=== PATIENT | male | born 1930 | race Caucasian/White ===

== ENCOUNTER 2017-05-31 07:59 | Emergency (ER) | payer MEDICARE, OTHER ==
[2017-05-31] MEDS ORDERED: SODIUM CHLORIDE 0.9% 500 ML IV ONE (08:50)
[2017-05-31] MEDS ORDERED: DEXAMETHASONE 10 MG/ML VIAL IVP STA (08:50)
[2017-05-31] MEDS ORDERED: ONDANSETRON 4 MG/2 ML VIAL IVP STA (08:50)
[2017-05-31] MEDS ORDERED: HYDROmorphone 1 MG/ML CARPUJECT IVP STA (08:50)
--- NOTE | 2017-05-31 08:53 | ED Physician Documentation ---
History of Present Illness - Stated complaint Stated Complaint: HAND PX - Chief complaint Chief Complaint: General - History obtained from History obtained from: Patient, Family - History of Present Illness Timing: How many weeks ago (2) - Additonal information Additional information: 86-year-old male with a history of cervical radiculopathy has developed some pain and numbness in his right hand. He states that he is having some difficult time closing his hand all the way and is having significant pain associated with this. He has a complicated past medical history with a bovine aortic valve 8 stents, diabetes, cervical fusion and a supra pubic cath. He has recently moved to the area to be with his son as his health is failing even more than previously. He is on some torsamide and he has been taking his medications and he has been taking care of his diabetes especially since he has come to live with his son. Review of Systems Constitutional: denies: Fever Eyes: denies: Decreased vision Ears: denies: Ear pain Nose: denies: Congestion Throat: denies: Sore throat Cardiac: denies: Chest pain / pressure, Palpitations Respiratory: denies: Dyspnea, Cough GI: denies: Abdominal Pain, Nausea, Vomiting : denies: Dysuria, Frequency Skin: denies: Rash Musculoskeletal: reports: Neck pain, Extremity pain Neurologic: reports: Focal weakness, Numbness. denies: Generalized weakness PD PAST MEDICAL HISTORY - Past Medical History Past Medical History: Yes Cardiovascular: Deep vein thrombosis, Valve disorder Respiratory: Emphysema Endocrine/Autoimmune: Type 2 diabetes : Benign prostate hypertrophy, Retention, Indwelling catheter Musculoskeletal: Osteoarthritis Other Past Medical History: charcot foot - Past Surgical History Past Surgical History: Yes Ortho: Spine surgery Cardiovascular: Coronary stent, Valve replacement, Pacemaker, AICD - Present Medications Home Medications: Ambulatory Orders Medication Instructions Recorded Confirmed Acetaminophen [Pain Reliever] 500 mg PO Q6H PRN 05/31/17 05/31/17 Clopidogrel [Plavix] 75 mg PO DAILY 05/31/17 05/31/17 Fludrocortisone [Florinef] 0.2 mg DAILY 05/31/17 05/31/17 HYDROcod/ACETAM 5/325 [[place] 5/325] 1 - 2 ea PO Q6H PRN #15 tablet 05/31/17 Insulin NPH Human [NovoLIN N] 60 units BID 05/31/17 05/31/17 Levofloxacin [Levaquin] 500 mg PO DAILY #10 tablet 05/31/17 Levothyroxine Sodium [Synthroid] 75 mcg PO DAILY 05/31/17 05/31/17 Metoprolol Succinate [Toprol Xl] 25 mg PO DAILY 05/31/17 05/31/17 Polyethylene Glycol 3350 [Glycolax] 17 gm DAILY 05/31/17 05/31/17 Propranolol [Inderal] 10 mg PO BID 05/31/17 05/31/17 Tamsulosin [Flomax] 0.4 mg DAILY 05/31/17 05/31/17 - Allergies Allergies/Adverse Reactions: Allergies Allergy/AdvReac Type Severity Reaction Status Date / Time pregabalin [From Lyrica] Allergy Unknown Verified 05/31/17 11:02 Sulfa (Sulfonamide Allergy Unknown Verified 05/31/17 11:02 Antibiotics) tetracycline Allergy Unknown Verified 05/31/17 11:02 - Social History Does the pt smoke?: No Smoking Status: Never smoker Does the pt drink ETOH?: No Does the pt have substance abuse?: No PD ED PE NORMAL - Vitals Vital signs reviewed: Yes (hypertensive) - General General: Alert and oriented X 3, No acute distress, Well developed/nourished - HEENT HEENT: Atraumatic, PERRL, EOMI - Neck Neck: Supple, no meningeal sign - Cardiac Cardiac: RRR, No murmur - Respiratory Respiratory: No respiratory distress, Clear bilaterally - Abdomen Abdomen: Soft, Non tender - Back Back: No CVA TTP, No spinal TTP - Derm Derm: Normal color, Warm and dry, No rash - Extremities Extremities: Other (There is severe arthritic deformity of both hands. The left is contracted the right is less so but still contracted and joints are deformed from arthritis. ) - Neuro Neuro: Alert and oriented X 3, Normal speech Eye Opening: Spontaneous Motor: Obeys Commands Verbal: Oriented GCS Score: 15 - Psych Psych: Normal mood, Normal affect Results - Vitals Vitals: Vital Signs - 24 hr 05/31/17 05/31/17 05/31/17 08:10 09:50 11:03 Temperature 36.7 C Heart Rate 72 70 70 Respiratory 18 16 18 Rate Blood Pressure 153/85 H 148/80 H 115/64 O2 Saturation 97 97 05/31/17 05/31/17 11:30 12:30 Temperature Heart Rate 70 70 Respiratory 18 18 Rate Blood Pressure 124/60 160/82 H O2 Saturation 96 Oxygen O2 Source Room air - Labs Labs: Laboratory Tests 05/31/17 05/31/17 05/31/17 09:23 09:23 09:23 WBC 9.4 RBC 4.37 L Hgb 11.1 L Hct 34.4 L MCV 78.7 L MCH 25.5 L MCHC 32.4 RDW 17.8 H Plt Count 215 MPV 8.5 Neut # 6.2 Lymph # 2.1 [place] # 0.9 Eos # 0.2 Baso # 0.0 Absolute Nucleated RBC 0.00 Nucleated RBC % 0.0 Sodium 135 Potassium 4.0 Chloride 105 Carbon Dioxide 24 Anion Gap 6.0 BUN 39 H Creatinine 1.4 H Estimated GFR (MDRD) 48 L Glucose 120 H Lactic Acid Calcium 8.9 Total Bilirubin 0.5 AST 15 ALT 10 Alkaline Phosphatase 61 Troponin I < 0.04 Total Protein 6.2 L Albumin 3.0 L Globulin 3.2 Albumin/Globulin Ratio 0.9 L Lipase < 10 L Urine Color Urine Clarity Urine pH Ur Specific [place] Urine Protein Urine Glucose (UA) Urine Ketones Urine Occult Blood Urine Nitrite Urine Bilirubin Urine Urobilinogen Ur Leukocyte Esterase Urine RBC Urine WBC Urine WBC Clumps Ur Squamous Epith Cells Urine Bacteria Ur Microscopic Review Urine Culture Comments 05/31/17 05/31/17 09:23 09:50 WBC RBC Hgb Hct MCV MCH MCHC RDW Plt Count MPV Neut # Lymph # [place] # Eos # Baso # Absolute Nucleated RBC Nucleated RBC % Sodium Potassium Chloride Carbon Dioxide Anion Gap BUN Creatinine Estimated GFR (MDRD) Glucose Lactic Acid < 0.3 L Calcium Total Bilirubin AST ALT Alkaline Phosphatase Troponin I Total Protein Albumin Globulin Albumin/Globulin Ratio Lipase Urine Color YELLOW Urine Clarity SL. CLOUDY Urine pH 6.0 Ur Specific [place] 1.020 Urine Protein TRACE Urine Glucose (UA) NEGATIVE Urine Ketones NEGATIVE Urine Occult Blood NEGATIVE Urine Nitrite POSITIVE H Urine Bilirubin NEGATIVE Urine Urobilinogen 0.2 (NORMAL) Ur Leukocyte Esterase SMALL H Urine RBC 0-5 Urine WBC >25 H Urine WBC Clumps PRESENT Ur Squamous Epith Cells NONE SEEN Urine Bacteria Many H Ur Microscopic Review INDICATED Urine Culture Comments INDICATED Procedures - IVC sono (time) 0850 Bedside IVC sono: IVC measures (cm) (1.44), IVC collapsed c insp (cm) (complete) , Dehydration (mild) PD MEDICAL DECISION MAKING - ED course Complexity details: reviewed old records, reviewed results, re-evaluated patient , considered differential, d/w patient, d/w family ED course: 86-year-old male with a comp located past medical history who has not been seen here previously has developed some cramping to his right hand. Is found to be mildly dehydrated on interrogation the inferior vena cava. He does have a history of cervical radiculopathy and symptoms are similar to what he has had with his radiculopathy previously. Here in the emergency department he is administered dexamethasone and a 500 mL bolus. He does have CHF in the bolus is administered over a 2 hour period. He has a suprapubic cath and the urine is checked as well. He is administered pain medication as well. I have concern for cervical radiculopathy, dehydration and urinary tract infection as underlying causes for worse than usual pain/disability. The patient responds well to treatment and I have recommended he not take his torsemide today. Departure - Departure Disposition: 01 Home, Self Care Clinical Impression: Dehydration, Cervical radiculopathy Urinary tract infection Qualifiers: Urinary tract infection type: catheter-associated UTI Indwelling urinary catheter type: cystostomy catheter Encounter type: initial encounter Qualified Code(s): T83.510A - Infection and inflammatory reaction due to cystostomy catheter, initial encounter Condition: Stable Instructions: ED Dehydration, ED Cervical Radiculopathy, ED UTI Cystitis Male Follow-Up: Reinaldo Paulino MD [Primary Care Provider] - Mike Alan MD [Provider Admit Priv/Credential] - Prescriptions: HYDROcod/ACETAM 5/325 [[place] 5/325] 1 - 2 ea PO Q6H PRN #15 tablet PRN Reason: Pain Levofloxacin [Levaquin] 500 mg PO DAILY #10 tablet Discharge Date/Time: 05/31/17 12:55
[2017-05-31 09:42] LABS: BASOPHILS % (AUTO) 0.3 %; EOSINOPHILS # (AUTO) 0.2 10^3/uL (0.0-0.7); EOSINOPHILS % (AUTO) 2.6 %; HGB - HEMOGLOBIN 11.1 g/dL (14.0-18.0); LYMPHOCYTES # (AUTO) 2.1 10^3/uL (1.5-3.5); LYMPHOCYTES % (AUTO) 22.5 %; MEAN CORPUSCULAR HEMOGLOBIN 25.5 pg (27.0-31.0); MEAN CORPUSCULAR HGB CONC 32.4 g/dL (32.0-36.0); MEAN CORPUSCULAR VOLUME 78.7 fL (80.0-94.0); MEAN PLATELET VOLUME 8.5 fL (7.4-11.4); MONOCYTES # (AUTO) 0.9 10^3/uL (0.0-1.0); MONOCYTES % (AUTO) 9.2 %; NEUTROPHILS # (AUTO) 6.2 10^3/uL (1.5-6.6); NEUTROPHILS % (AUTO) 65.4 %; PLT - PLATELET COUNT 215 10^3/uL (130-450); RED BLOOD COUNT 4.37 10^6/uL (4.70-6.10); RED CELL DISTRIBUTION WIDTH 17.8 % (12.0-15.0); WHITE BLOOD COUNT 9.4 x10^3/uL (4.8-10.8)
[2017-05-31 09:58] LABS: BILIRUBIN,URINE NEGATIVE (NEGATIVE); GLUCOSE, URINE (UA) NEGATIVE (NEGATIVE); KETONES,URINE (UA) NEGATIVE (NEGATIVE); LEUKOCYTE ESTERASE, URINE SMALL (NEGATIVE); NITRITE,URINE POSITIVE (NEGATIVE); OCCULT BLOOD,URINE NEGATIVE (NEGATIVE); PROTEIN,URINE TRACE mg/dL (NEGATIVE); UROBILINOGEN,URINE 0.2 (NORMAL) E.U./dL (NORMAL)
[2017-05-31 10:01] LABS: ALBUMIN/GLOBULIN RATIO 0.9 (1.0-2.2); ALKALINE PHOSPHATASE 61 IU/L (42-121); ALT ALANINE AMINOTRANSFERASE 10 IU/L (10-60); AST ASPARTATE AMINOTRANSFERASE 15 IU/L (10-42); BILIRUBIN,TOTAL 0.5 mg/dL (0.2-1.0); BUN - BLOOD UREA NITROGEN 39 mg/dL (6-20); CALCIUM 8.9 mg/dL (8.5-10.3); CARBON DIOXIDE - CO2 24 mmol/L (21-32); CHLORIDE 105 mmol/L (101-111); CREATININE 1.4 mg/dL (0.6-1.2); GFR - MDRD 48 (>89); GLUCOSE 120 mg/dL (70-100); LIPASE < 10 U/L (22-51); SODIUM 135 mmol/L (135-145); TOTAL PROTEIN 6.2 g/dL (6.7-8.2)
[2017-05-31 10:14] LABS: CLARITY,URINE SL. CLOUDY (CLEAR)
[2017-05-31 10:15] LABS: BACTERIA,URINE Many /HPF (None Seen); RBC,URINE 0-5 /HPF (0-5); SQUAMOUS EPITHELIAL CELL,UR NONE SEEN (<= Few); WBC CLUMPS,URINE PRESENT
[2017-05-31] MEDS ORDERED: cefTRIAXone 1 GM in SODIUM CHLORIDE 0.9% MINIBAG 100 ML IV STA (10:40)
[2017-05-31 13:06] VITALS: BP 160/82
== END 2017-05-31 12:55 | disposition home or self-care (01) ==
LOC: ED 07:59
DX: E86.0 Dehydration (principal); M54.12 Radiculopathy, cervical region; T83.510A Infection and inflammatory reaction due to cystostomy catheter, initial encounter; M24.542 Contracture, left hand; M24.541 Contracture, right hand; E11.9 Type 2 diabetes mellitus without complications; Z79.4 Long term (current) use of insulin; Z95.3 Presence of xenogenic heart valve; Z95.810 Presence of automatic (implantable) cardiac defibrillator; N40.0 Benign prostatic hyperplasia without lower urinary tract symptoms; Z98.1 Arthrodesis status; Z86.718 Personal history of other venous thrombosis and embolism; Z79.02 Long term (current) use of antithrombotics/antiplatelets; M19.90 Unspecified osteoarthritis, unspecified site
CPT/HCPCS: 36415; 80053; 81001; 83605; 83690; 84484; 85025; 87077; 87086; 87181; 96361; 96365; 96375; 99284; J1170; 81003

== ENCOUNTER 2017-06-02 16:18 | Outpatient (CLI) | payer MEDICARE, OTHER | END 2017-06-02 16:19 | disposition EMS.NT | LOC: EMS 16:18 | PROVIDERS: ATTEND Surgery | DX: R41.0 Disorientation, unspecified (principal); R73.09 Other abnormal glucose ==

== ENCOUNTER 2017-06-09 10:26 | Outpatient (CLI) | payer MEDICARE, OTHER ==
[2017-06-09 13:21] LABS: ALBUMIN 3.1 g/dL (3.2-5.5); ALBUMIN/GLOBULIN RATIO 0.9 (1.0-2.2); BILIRUBIN,TOTAL 0.8 mg/dL (0.2-1.0); CALCIUM 8.9 mg/dL (8.5-10.3); CREATININE 1.6 mg/dL (0.6-1.2); TOTAL PROTEIN 6.6 g/dL (6.7-8.2)
== END 2017-06-09 10:27 | disposition home or self-care (01) ==
LOC: LAB.WCP 10:26
PROVIDERS: ATTEND Family Medicine
DX: N39.0 Urinary tract infection, site not specified (principal); N28.9 Disorder of kidney and ureter, unspecified; I50.9 Heart failure, unspecified
CPT/HCPCS: 36415; 80053; 83880; 87086

== ENCOUNTER 2017-07-09 13:08 | Outpatient (CLI) | payer MEDICARE, OTHER ==
--- NOTE | 2017-07-09 17:24 | CT Report ---
CT CERVICAL SPINE WITHOUT CONTRAST: 07/09/2017 CLINICAL INDICATION: Chronic neck pain. TECHNIQUE: Axial CT images of the cervical spine were obtained without contrast. In accordance with CT protocol optimization, one or more of the following dose reduction techniques were utilized for this exam: Automated exposure control, adjustment of mA and/or KV based on patient size, or use of iterative reconstructive technique. No previous CT is available for comparison. FINDINGS: The cervical vertebral bodies demonstrate normal height and alignment. There has been previous discectomies performed from C4-5 to C6-7, with anterior plate and screw fusion and posterior rhiannon and pedicle screw fusion, with posterior decompressions. The C2-3 disk demonstrates mild disk osteophyte, without significant spinal or foraminal narrowing. At C3-4, there is mild disk osteophyte, without significant spinal or foraminal narrowing. Posterior decompression is present. At C4-5, discectomy changes are present. No significant osseous neural foraminal narrowing is seen. At C5-6, discectomy changes are present. No significant foraminal narrowing is seen. At C6-7, discectomy changes are present. There is left osseous neural foraminal narrowing, due to uncovertebral and facet osteophytes. The C7-T1 disk appears unremarkable. The prevertebral soft tissues appear unremarkable. IMPRESSION: MULTILEVEL DISCECTOMY CHANGES, WITH ANTERIOR PLATE AND SCREW FUSION SPANNING C4 THROUGH C7, AND POSTERIOR RHIANNON AND PEDICLE SCREW FUSION DECOMPRESSION SPANNING C3 THROUGH T2. NO EVIDENCE OF ACUTE FRACTURE. TD: 07/09/2017 14:21
== END 2017-07-09 13:09 | disposition home or self-care (01) ==
LOC: DI 13:08
PROVIDERS: ATTEND Family Medicine
DX: M54.2 Cervicalgia (principal); Z98.1 Arthrodesis status
CPT/HCPCS: 72125

== ENCOUNTER 2017-08-24 00:06 | Outpatient (CLI) | payer MEDICARE, OTHER | END 2017-08-24 00:07 | disposition critical access hospital (66) | LOC: EMS 00:06 | PROVIDERS: ATTEND Surgery | DX: R10.9 Unspecified abdominal pain (principal); R11.2 Nausea with vomiting, unspecified; R53.1 Weakness | CPT/HCPCS: A0425; A0427 ==

== ENCOUNTER 2017-08-24 00:24 | Emergency (ER) | payer MEDICARE, OTHER ==
[2017-08-24] MEDS ORDERED: SODIUM CHLORIDE 0.9% 1,000 ML IV ONE (00:46)
[2017-08-24 01:34] LABS: BILIRUBIN,URINE NEGATIVE (NEGATIVE); GLUCOSE, URINE (UA) 500 mg/dL (NEGATIVE); KETONES,URINE (UA) NEGATIVE (NEGATIVE); LEUKOCYTE ESTERASE, URINE MODERATE (NEGATIVE); NITRITE,URINE NEGATIVE (NEGATIVE); OCCULT BLOOD,URINE TRACE-INTA (NEGATIVE); PROTEIN,URINE 100 mg/dL (NEGATIVE); UROBILINOGEN,URINE 0.2 (NORMAL) E.U./dL (NORMAL)
[2017-08-24 01:39] LABS: CLARITY,URINE SL. CLOUDY (CLEAR)
[2017-08-24 01:46] LABS: BACTERIA,URINE Few /HPF (None Seen); RBC,URINE 0-5 /HPF (0-5); SQUAMOUS EPITHELIAL CELL,UR RARE Squamous (<= Few)
[2017-08-24 01:46] LABS: BASOPHILS # (AUTO) 0.1 10^3/uL (0.0-0.1); BASOPHILS % (AUTO) 0.8 %; EOSINOPHILS # (AUTO) 0.2 10^3/uL (0.0-0.7); EOSINOPHILS % (AUTO) 1.9 %; HGB - HEMOGLOBIN 10.3 g/dL (14.0-18.0); LYMPHOCYTES # (AUTO) 1.2 10^3/uL (1.5-3.5); LYMPHOCYTES % (AUTO) 13.5 %; MEAN CORPUSCULAR HGB CONC 31.4 g/dL (32.0-36.0); MEAN CORPUSCULAR VOLUME 76.6 fL (80.0-94.0); MEAN PLATELET VOLUME 7.7 fL (7.4-11.4); MONOCYTES # (AUTO) 0.8 10^3/uL (0.0-1.0); MONOCYTES % (AUTO) 9.2 %; NEUTROPHILS # (AUTO) 6.7 10^3/uL (1.5-6.6); NEUTROPHILS % (AUTO) 74.6 %; PLT - PLATELET COUNT 273 10^3/uL (130-450); RED BLOOD COUNT 4.29 10^6/uL (4.70-6.10); RED CELL DISTRIBUTION WIDTH 19.4 % (12.0-15.0); WHITE BLOOD COUNT 8.9 x10^3/uL (4.8-10.8)
[2017-08-24] MEDS ORDERED: CEFEPIME 1 GM in SODIUM CHLORIDE 0.9% MINIBAG 100 ML IV STA (01:54)
--- NOTE | 2017-08-24 01:58 | ED Physician Documentation ---
History of Present Illness - Stated complaint Stated Complaint: NAUSEA,VOMITING - Chief complaint Chief Complaint: Abd Pain - History obtained from History obtained from: Patient, EMS - History of Present Illness Timing: Yesterday - Additonal information Additional information: Patient is an 86 year old male with an indwelling thibodeaux catheter secondary to a previous cva. patient was brought in by ems for nausea and a headache. patient has had a headache for over three weeks and has already been worked up for it. patient developed nausea today and just didn't feel well so family called ems. Upon initial evaluation in the emergency department patient was awake and alert but hypotensive. Review of Systems Constitutional: denies: Fever, Chills Eyes: reports: Reviewed and negative Ears: reports: Reviewed and negative GI: reports: Abdominal Pain, Constipation. denies: Nausea, Vomiting : denies: Dysuria, Frequency Skin: denies: Rash, Lesions PD PAST MEDICAL HISTORY - Past Medical History Past Medical History: Yes Cardiovascular: Congestive heart failure, Hypertension, High cholesterol, Deep vein thrombosis, Valve disorder Respiratory: COPD, Emphysema Neuro: None Endocrine/Autoimmune: Type 2 diabetes : Benign prostate hypertrophy, Retention, Chronic bladder infection, Indwelling catheter HEENT: Chronic hearing loss Psych: Anxiety Musculoskeletal: Osteoarthritis - Past Surgical History Past Surgical History: Yes Ortho: Spine surgery Cardiovascular: Coronary stent, Valve replacement, Pacemaker, AICD - Present Medications Home Medications: Ambulatory Orders Medication Instructions Recorded Confirmed Acetaminophen [Pain Reliever] 500 mg PO Q6H PRN 05/31/17 08/24/17 Clopidogrel [Plavix] 75 mg PO DAILY 05/31/17 08/24/17 Fludrocortisone [Florinef] 0.2 mg DAILY 05/31/17 08/24/17 HYDROcod/ACETAM 5/325 [[place] 5/325] 1 - 2 ea PO Q6H PRN #15 tablet 05/31/1705/09 Insulin NPH Human [NovoLIN N] 60 units BID 05/31/17 08/24/17 Levothyroxine Sodium [Synthroid] 75 mcg PO DAILY 05/31/17 08/24/17 Metoprolol Succinate [Toprol Xl] 25 mg PO DAILY 05/31/17 08/24/17 Polyethylene Glycol 3350 [Glycolax] 17 gm DAILY 05/31/17 08/24/17 Propranolol [Inderal] 10 mg PO BID 05/31/17 08/24/17 Tamsulosin [Flomax] 0.4 mg DAILY 05/31/17 08/24/17 Cephalexin [Keflex] 500 mg PO Q8HR 7 Days capsule 08/24/17 Ondansetron Odt [Zofran] 4 mg TL Q6H PRN #14 tablet 08/24/17 - Allergies Allergies/Adverse Reactions: Allergies Allergy/AdvReac Type Severity Reaction Status Date / Time pregabalin [From Lyrica] Allergy Unknown Verified 08/24/17 00:43 Sulfa (Sulfonamide Allergy Unknown Verified 08/24/17 00:43 Antibiotics) tetracycline Allergy Unknown Verified 08/24/17 00:43 - Social History Does the pt smoke?: No Smoking Status: Never smoker Does the pt drink ETOH?: No Does the pt have substance abuse?: No - Immunizations Immunizations are current?: No Immunizations: TDAP >10years/unknown - POLST Patient has POLST: No PD ED PE NORMAL - Vitals Vital signs reviewed: Yes - General General: Alert and oriented X 3 - HEENT HEENT: Atraumatic - Cardiac Cardiac: RRR - Respiratory Respiratory: No respiratory distress, Clear bilaterally - Abdomen Abdomen: Soft, Non tender PD ED PE EXPANDED - HEENT HEENT: Dry mucous membranes - Abdomen Abdomen: Other (suprapubic catheter in place) - Male Male : Other (erythema and fungal infection, balantitis ) Results - Vitals Vitals: Vital Signs - 24 hr 08/24/17 08/24/17 08/24/17 00:25 00:46 00:48 Temperature 36.7 C Heart Rate 72 63 66 Respiratory 13 15 14 Rate Blood Pressure 85/51 L 85/51 L 112/55 L O2 Saturation 97 97 96 08/24/17 08/24/17 08/24/17 01:13 01:50 01:58 Temperature Heart Rate 62 60 Respiratory 17 16 95 H Rate Blood Pressure 117/57 L 117/57 L O2 Saturation 96 16 L 08/24/17 02:34 Temperature Heart Rate 68 Respiratory 18 Rate Blood Pressure 120/66 O2 Saturation 97 Oxygen O2 Source Room air - EKG (time done) 0105 Rate: Rate (enter#) (61) Rhythm: Paced Compare to prior EKG: Old EKG unavailable - Labs Labs: Laboratory Tests 08/24/17 08/24/17 08/24/17 00:50 01:40 01:40 WBC 8.9 RBC 4.29 L Hgb 10.3 L Hct 32.9 L MCV 76.6 L MCH 24.0 L MCHC 31.4 L RDW 19.4 H Plt Count 273 MPV 7.7 Neut # (Auto) 6.7 H Lymph # (Auto) 1.2 L [place] # (Auto) 0.8 Eos # (Auto) 0.2 Baso # (Auto) 0.1 Absolute Nucleated RBC 0.01 Nucleated RBC % 0.1 Sodium 136 Potassium 3.4 L Chloride 101 Carbon Dioxide 25 Anion Gap 10.0 BUN 43 H Creatinine 1.7 H Estimated GFR (MDRD) 38 L Glucose 114 H Lactic Acid Calcium 8.7 Total Bilirubin 0.4 AST 16 ALT 10 Alkaline Phosphatase 73 Troponin I Total Protein 6.3 L Albumin 2.7 L Globulin 3.6 Albumin/Globulin Ratio 0.8 L Lipase 17 L Urine Color YELLOW Urine Clarity SL. CLOUDY Urine pH 6.0 Ur Specific [place] 1.010 Urine Protein 100 H Urine Glucose (UA) 500 H Urine Ketones NEGATIVE Urine Occult Blood TRACE-INTA Urine Nitrite NEGATIVE Urine Bilirubin NEGATIVE Urine Urobilinogen 0.2 (NORMAL) Ur Leukocyte Esterase MODERATE H Urine RBC 0-5 Urine WBC >25 H Ur Squamous Epith Cells RARE Squamous Urine Bacteria Few Ur Microscopic Review INDICATED Urine Culture Comments INDICATED 08/24/17 08/24/17 01:40 01:40 WBC RBC Hgb Hct MCV MCH MCHC RDW Plt Count MPV Neut # (Auto) Lymph # (Auto) [place] # (Auto) Eos # (Auto) Baso # (Auto) Absolute Nucleated RBC Nucleated RBC % Sodium Potassium Chloride Carbon Dioxide Anion Gap BUN Creatinine Estimated GFR (MDRD) Glucose Lactic Acid 1.8 Calcium Total Bilirubin AST ALT Alkaline Phosphatase Troponin I 0.04 Total Protein Albumin Globulin Albumin/Globulin Ratio Lipase Urine Color Urine Clarity Urine pH Ur Specific [place] Urine Protein Urine Glucose (UA) Urine Ketones Urine Occult Blood Urine Nitrite Urine Bilirubin Urine Urobilinogen Ur Leukocyte Esterase Urine RBC Urine WBC Ur Squamous Epith Cells Urine Bacteria Ur Microscopic Review Urine Culture Comments PD MEDICAL DECISION MAKING - ED course Complexity details: reviewed old records, reviewed results, re-evaluated patient , considered differential, d/w patient ED course: Patient was seen and examined at bedside. Patient's original vital signs had the patient hypotensive but not tachycardic or febrile. IV access was gained and labs were drawn. patient was started on a fluid bolus. patient's blood pressure normalized, so it is hard to say if the one blood pressure was accurate. Patient's urine was collected and previous results were reviewed. Patient's last urine culture was negative but the one before showed pseudomonas. Patient was treated with IV cefepime. Patient was offered admission but stated he would rather stay the night then go home in the morning and let his son sleep. prescriptions were written and patient was stable for discharge with outpatient follow up. - Sepsis Event Vital Signs: Vital Signs - 24 hr 08/24/17 08/24/17 08/24/17 00:25 00:46 00:48 Temperature 36.7 C Heart Rate 72 63 66 Respiratory 13 15 14 Rate Blood Pressure 85/51 L 85/51 L 112/55 L O2 Saturation 97 97 96 08/24/17 08/24/17 08/24/17 01:13 01:50 01:58 Temperature Heart Rate 62 60 Respiratory 17 16 95 H Rate Blood Pressure 117/57 L 117/57 L O2 Saturation 96 16 L 08/24/17 02:34 Temperature Heart Rate 68 Respiratory 18 Rate Blood Pressure 120/66 O2 Saturation 97 Oxygen O2 Source Room air Departure - Departure Disposition: 01 Home, Self Care Clinical Impression: Urinary tract infection Condition: Stable Instructions: ED UTI Cystitis Male Follow-Up: Reinaldo Paulino MD [Primary Care Provider] - Tomorrow Prescriptions: Cephalexin [Keflex] 500 mg PO Q8HR 7 Days capsule Ondansetron Odt [Zofran] 4 mg TL Q6H PRN #14 tablet PRN Reason: Nausea / Vomiting Comments: Your symptoms are at least in part being caused by dehydration and urinary tract infection. It is important that you increase your fluid intake over the next few days. If your symptoms don't improve in the next day or so you should return to the emergency department. You may return sooner for worsening symptoms. Otherwise try to schedule a follow up appointment with your doctor within this week.
[2017-08-24 02:00] LABS: ALBUMIN 2.7 g/dL (3.2-5.5); ALBUMIN/GLOBULIN RATIO 0.8 (1.0-2.2); BILIRUBIN,TOTAL 0.4 mg/dL (0.2-1.0); CALCIUM 8.7 mg/dL (8.5-10.3); CREATININE 1.7 mg/dL (0.6-1.2); TOTAL PROTEIN 6.3 g/dL (6.7-8.2)
--- NOTE | 2017-08-24 03:02 | XRAY Report ---
Procedure Date: 08/24/2017 Accession Number: [id number] / [id number] Procedure: XR - Chest 1 View X-Ray CPT Code: 31188 FULL RESULT: EXAM: CHEST RADIOGRAPHY EXAM DATE: 08/24/2017 01:10 AM. CLINICAL HISTORY: Hypotension, fever COMPARISON: None. TECHNIQUE: 1 view. FINDINGS: Lungs/Pleura: No dense consolidation. No large effusion or pneumothorax. Mediastinum: Borderline-enlarged cardiac silhouette Other: Cardiac device with leads in the right ventricle and coronary sinus. Partially visualized cervical spinal fusion. IMPRESSION: No acute radiographic pulmonary abnormalities. RADIA
[2017-08-24 05:08] VITALS: BP 118/52
== END 2017-08-24 07:15 | disposition home or self-care (01) ==
LOC: ED 00:24
DX: N39.0 Urinary tract infection, site not specified (principal); I10 Essential (primary) hypertension; Z96.0 Presence of urogenital implants; Z95.5 Presence of coronary angioplasty implant and graft; Z79.02 Long term (current) use of antithrombotics/antiplatelets; E11.9 Type 2 diabetes mellitus without complications; Z79.4 Long term (current) use of insulin; N48.1 Balanitis; E86.0 Dehydration
CPT/HCPCS: 36415; 71045; 80053; 81001; 81003; 83605; 83690; 84484; 85025; 87040; 87086; 87181; 93005; 96361; 96365; 99284; 99285

== ENCOUNTER 2017-09-11 11:15 | Outpatient (CLI) | payer MEDICARE, OTHER ==
--- NOTE | 2017-09-11 16:57 | Ultrasound Report ---
Procedure Date: 09/11/2017 Accession Number: [id number] / [id number] Procedure: US - Ankle Brachial Index CPT Code: FULL RESULT: EXAM: ANKLE-BRACHIAL INDEX EXAM DATE: 09/11/2017 11:44 AM. CLINICAL HISTORY: Bilateral claudication. History of hypertension, diabetes, hyperlipidemia, and coronary artery disease. COMPARISON: None. TECHNIQUE: Realtime sonographic imaging of the brachial and ankle arterial structures was performed in conjunction with a blood pressure cuff. FINDINGS: Brachial artery manometry measurements were as follows: Right: 131/69 mmHg Left: 124/89 mmHg Tibialis posterior artery manometry measurements are as follows: Right: 112/74 mmHg Left: 128/31 mmHg Ankle brachial index: Right 0.85 Left 1.0 Velocity measurements: Right: Posterior tibial artery 30 m/s monophasic Dorsalis Pedis artery 39 m/s monophasic Left: Tibialis posterior artery 27 m/s monophasic Dorsalis pedis artery 31 m/s monophasic IMPRESSION: The right ankle brachial index is mildly decreased at 0.85. RADIA
== END 2017-09-11 11:16 | disposition home or self-care (01) ==
LOC: DI 11:15
PROVIDERS: ATTEND Family Medicine
DX: I73.9 Peripheral vascular disease, unspecified (principal)
CPT/HCPCS: 93922

== ENCOUNTER 2017-10-13 12:38 | Outpatient (CLI) | payer MEDICARE, OTHER ==
[2017-10-13 13:08] LABS: BASOPHILS % (AUTO) 0.6 %; EOSINOPHILS # (AUTO) 0.2 10^3/uL (0.0-0.7); EOSINOPHILS % (AUTO) 2.1 %; HGB - HEMOGLOBIN 11.2 g/dL (14.0-18.0); LYMPHOCYTES # (AUTO) 1.9 10^3/uL (1.5-3.5); LYMPHOCYTES % (AUTO) 25.5 %; MEAN CORPUSCULAR HEMOGLOBIN 24.1 pg (27.0-31.0); MEAN CORPUSCULAR HGB CONC 31.8 g/dL (32.0-36.0); MEAN CORPUSCULAR VOLUME 75.8 fL (80.0-94.0); MEAN PLATELET VOLUME 8.2 fL (7.4-11.4); MONOCYTES # (AUTO) 0.5 10^3/uL (0.0-1.0); MONOCYTES % (AUTO) 7.1 %; NEUTROPHILS # (AUTO) 4.8 10^3/uL (1.5-6.6); NEUTROPHILS % (AUTO) 64.7 %; PLT - PLATELET COUNT 275 10^3/uL (130-450); RED BLOOD COUNT 4.66 10^6/uL (4.70-6.10); RED CELL DISTRIBUTION WIDTH 18.7 % (12.0-15.0); WHITE BLOOD COUNT 7.5 x10^3/uL (4.8-10.8)
[2017-10-13 13:31] LABS: ALBUMIN 3.3 g/dL (3.2-5.5); ALBUMIN/GLOBULIN RATIO 0.8 (1.0-2.2); BILIRUBIN,TOTAL 0.7 mg/dL (0.2-1.0); CALCIUM 9.4 mg/dL (8.5-10.3); CREATININE 1.7 mg/dL (0.6-1.2); TOTAL PROTEIN 7.3 g/dL (6.7-8.2)
--- NOTE | 2017-10-13 13:48 | XRAY Report ---
Procedure Date: 10/13/2017 Accession Number: [id number] / [id number] Procedure: XR - Chest 2 View X-Ray CPT Code: 90802 FULL RESULT: EXAM: CHEST RADIOGRAPHY EXAM DATE: 10/13/2017 01:37 PM. CLINICAL HISTORY: DYSPNEA ON EXERTION,RENAL INSUFFICIENCY, CONGESTION. COMPARISON: 08/24/2017. TECHNIQUE: 2 views. FINDINGS: Lungs/Pleura: No focal opacities evident. No pleural effusion. No pneumothorax. Normal volumes. Mediastinum: Heart and mediastinal contours are unremarkable. Triple lead left subclavian transvenous pacemaker. Prosthetic cardiac valve. Poststernotomy changes. Other: Degenerative change in the spine. Postsurgical changes cervical spine IMPRESSION: Clear lungs. No acute findings 2-view chest radiography. RADIA
== END 2017-10-13 12:39 | disposition home or self-care (01) ==
LOC: LAB 12:38
PROVIDERS: ATTEND Family Medicine
DX: R06.00 Dyspnea, unspecified (principal); N28.9 Disorder of kidney and ureter, unspecified; I50.9 Heart failure, unspecified
CPT/HCPCS: 36415; 71046; 80053; 83880; 85025

== ENCOUNTER 2017-10-15 11:57 | Outpatient (CLI) | payer MEDICARE, OTHER | END 2017-10-15 11:58 | disposition critical access hospital (66) | LOC: EMS 11:57 | PROVIDERS: ATTEND Surgery | DX: R55 Syncope and collapse (principal) | CPT/HCPCS: A0425; A0427 ==

== ENCOUNTER 2017-10-15 12:10 | Inpatient (IN) | payer MEDICARE, OTHER ==
[2017-10-15] MEDS ORDERED: MORPHINE 10 MG/ML VIAL IVP STA (13:07)
[2017-10-15 13:27] LABS: BASOPHILS % (AUTO) 0.3 %; EOSINOPHILS # (AUTO) 0.1 10^3/uL (0.0-0.7); EOSINOPHILS % (AUTO) 0.7 %; HGB - HEMOGLOBIN 11.3 g/dL (14.0-18.0); MEAN CORPUSCULAR VOLUME 74.9 fL (80.0-94.0); MEAN PLATELET VOLUME 7.8 fL (7.4-11.4); MONOCYTES # (AUTO) 0.7 10^3/uL (0.0-1.0); MONOCYTES % (AUTO) 6.4 %; NEUTROPHILS # (AUTO) 9.6 10^3/uL (1.5-6.6); NEUTROPHILS % (AUTO) 83.6 %; PLT - PLATELET COUNT 273 10^3/uL (130-450); RED CELL DISTRIBUTION WIDTH 18.6 % (12.0-15.0); WHITE BLOOD COUNT 11.5 x10^3/uL (4.8-10.8)
[2017-10-15 13:37] LABS: ALBUMIN 3.2 g/dL (3.2-5.5); ALBUMIN/GLOBULIN RATIO 0.9 (1.0-2.2); BILIRUBIN,TOTAL 0.8 mg/dL (0.2-1.0); CALCIUM 9.1 mg/dL (8.5-10.3); CREATININE 1.7 mg/dL (0.6-1.2); MAGNESIUM 1.9 mg/dL (1.7-2.8); TOTAL PROTEIN 6.9 g/dL (6.7-8.2)
--- NOTE | 2017-10-15 15:16 | XRAY Report ---
Reason: syncope Procedure Date: 10/15/2017 Accession Number: [id number] / [id number] Procedure: XR - Chest 2 View X-Ray CPT Code: 31827 FULL RESULT: EXAM: CHEST RADIOGRAPHY EXAM DATE: 10/15/2017 03:05 PM. CLINICAL HISTORY: Syncope COMPARISON: 10/13/2017. TECHNIQUE: 2 views. FINDINGS: Lungs/Pleura: No focal opacities evident. No pleural effusion. No pneumothorax. Normal volumes. Mediastinum: Post sternotomy, cardiac valve replacement. Heart size normal. Other: Multiple foci of the pacer defibrillator tips in right atrium, right ventricle and coronary sinus. Post cervical thoracic spine surgery. IMPRESSION: No active cardiopulmonary disease RADIA
--- NOTE | 2017-10-15 15:20 | CT Report ---
Reason: syncope, fall, head injury on Plavix Procedure Date: 10/15/2017 Accession Number: [id number] / [id number] Procedure: CT - Head W/O CPT Code: FULL RESULT: EXAM: CT HEAD EXAM DATE: 10/15/2017 02:52 PM. CLINICAL HISTORY: Fall COMPARISON: None. TECHNIQUE: Multiaxial CT images were obtained from the foramen magnum to the vertex. Reformats: Sagittal and coronal. IV contrast: None. In accordance with CT protocol optimization, one or more of the following dose reduction techniques were utilized for this exam: automated exposure control, adjustment of mA and/or KV based on patient size, or use of iterative reconstructive technique. FINDINGS: Parenchyma: No intraparenchymal hemorrhage. No evidence of mass, midline shift, or CT findings of infarction. Flores-white differentiation is distinct. Extraaxial Spaces: Mild volume loss. No subdural or epidural collections identified. Ventricles: Mildly enlarged. Sinuses and Orbits: Imaged paranasal sinuses, orbits, and mastoids show no significant abnormality. Bones: No evidence of fracture or calvarial defect. Other: None. IMPRESSION: No acute intracranial abnormality. RADIA
--- NOTE | 2017-10-15 15:42 | CT Report ---
Reason: fall, back pain Procedure Date: 10/15/2017 Accession Number: [id number] / [id number] Procedure: CT - Lumbar Spine W/O CPT Code: FULL RESULT: EXAM: CT LUMBAR SPINE WITHOUT CONTRAST EXAM DATE: 10/15/2017 03:06 PM. CLINICAL HISTORY: Fall, lower back pain COMPARISONS: None. TECHNIQUE: Thin-section axial images were acquired of the lumbar spine from T12 to S1 without contrast. Post-processing: Coronal and sagittal reformats. Other: None. In accordance with CT protocol optimization, one or more of the following dose reduction techniques were utilized for this exam: automated exposure control, adjustment of mA and/or KV based on patient size, or use of iterative reconstructive technique. FINDINGS: Alignment: Grade 1 retrolisthesis L2 on L3. Bones: Five gth-[id number]-spoijjo lumbar vertebral bodies are present. No fractures or bone lesions. Disk Levels/Facets: T12-L1: Unremarkable. L1-L2: Unremarkable. L2-L3: Osteophyte bulge complex. Congenitally short pedicles at this level.Right neural foraminal narrowing. Narrowing of the left neuroforamina. L3-L4: Osteophyte bulge complex. Congenitally short pedicles. Narrowing of bilateral inferior neural foramina. Mild canal narrowing L4-L5: Osteophyte bulge complex, ligamentum flavum thickening. Triangular-shaped canal. Narrowing of inferior neural foramina without significant compression of exiting nerve roots. L5-S1: Osteophyte bulge complex, facet arthropathy. Bilateral neuroforamina narrowing. Musculature: Normal. No fatty atrophy. Other: The visualized retroperitoneum is unremarkable. IMPRESSION: 1. Moderate degenerative changes detailed above. 2. Negative for fracture RADIA
--- NOTE | 2017-10-15 15:49 | ED Physician Documentation ---
History of Present Illness - Stated complaint Stated Complaint: SYNCOPE - Chief complaint Chief Complaint: Neuro - History obtained from History obtained from: Patient - Additonal information Additional information: 86-year-old male presents the emergency department for evaluation after a syncopal episode. The patient actually reports 2 syncopal episodes today, before the episodes the patient was feeling lightheaded and having palpitations and then past out. The patient reports striking his head and his back. Presently, the patient is experiencing lower back pain which is worse with movements. The patient denies saddle anesthesia, new motor weakness, sensory changes, hematuria or urinary retention. Symptoms are described as moderate. No other associated symptoms. No specific triggering factors Review of Systems Constitutional: denies: Fever Eyes: denies: Discharge Ears: denies: Ear pain Nose: denies: Congestion Throat: denies: Sore throat Cardiac: denies: Chest pain / pressure Respiratory: denies: Cough GI: denies: Vomiting : denies: Dysuria Skin: denies: Rash Musculoskeletal: reports: Back pain Neurologic: reports: Syncope, Head injury Immunocompromised: denies: Chemotherapy PD PAST MEDICAL HISTORY - Past Medical History Cardiovascular: Congestive heart failure, Hypertension, High cholesterol, Deep vein thrombosis, Valve disorder Respiratory: COPD, Emphysema Neuro: None, Peripheral neuropathy Endocrine/Autoimmune: Type 2 diabetes : Benign prostate hypertrophy, Retention, Chronic bladder infection, Indwelling catheter HEENT: Chronic hearing loss Psych: Anxiety Musculoskeletal: Osteoarthritis - Past Surgical History Past Surgical History: Yes Ortho: Spine surgery Cardiovascular: Coronary stent, Valve replacement, Pacemaker, AICD - Present Medications Home Medications: Ambulatory Orders Medication Instructions Recorded Confirmed Acetaminophen [Pain Reliever] 500 mg PO Q6H PRN 05/31/17 08/24/17 Clopidogrel [Plavix] 75 mg PO DAILY 05/31/17 10/15/17 Fludrocortisone [Florinef] 0.1 mg PO DAILY 05/31/17 10/15/17 HYDROcod/ACETAM 5/325 [[place] 5/325] 1 - 2 ea PO Q6H PRN #15 tablet 05/31/17 Levothyroxine Sodium [Synthroid] 75 mcg PO DAILY 05/31/17 10/15/17 Metoprolol Succinate [Toprol Xl] 25 mg PO DAILY 05/31/17 10/15/17 Polyethylene Glycol 3350 [Glycolax] 17 gm DAILY 05/31/17 08/24/17 Tamsulosin [Flomax] 0.4 mg DAILY 05/31/17 10/15/17 Aspirin [Aspirin EC] 81 mg PO DAILY 10/15/17 10/15/17 Famotidine [Pepcid] 20 mg PO ONCE 10/15/17 10/15/17 Insulin Regular Human [NovoLIN R] 25 unit SUBQ BID 10/15/17 10/15/17 Psyllium [Metamucil] 1 pkt PO DAILY 10/15/17 10/15/17 Sennosides [Natural Laxative] 1 tab PO DAILY 10/15/17 10/15/17 Torsemide [Demadex] 20 mg PO BID 10/15/17 10/15/17 - Allergies Allergies/Adverse Reactions: Allergies Allergy/AdvReac Type Severity Reaction Status Date / Time pregabalin [From Lyrica] Allergy Unknown Verified 10/15/17 12:20 Sulfa (Sulfonamide Allergy Unknown Verified 10/15/17 12:20 Antibiotics) tetracycline Allergy Unknown Verified 10/15/17 12:20 - Social History Does the pt smoke?: No Smoking Status: Never smoker Does the pt drink ETOH?: No Does the pt have substance abuse?: No - Immunizations Immunizations are current?: No Immunizations: TDAP >10years/unknown - POLST Patient has POLST: No PD ED PE NORMAL - General General: Alert and oriented X 3, Other (86-year-old significantly debilitated male who appears quite uncomfortable) - HEENT HEENT: PERRL, EOMI, Ears normal, Other (The patient has tenderness to palpation in his occiput, there is no significant swelling, contusion or laceration or crepitus) - Neck Neck: No bony TTP - Cardiac Cardiac: RRR, Strong equal pulses - Respiratory Respiratory: No respiratory distress, Clear bilaterally - Abdomen Abdomen: Soft, Non tender - Back Back: Other (The patient has tenderness in his lumbar spine, the patient has no tenderness in the thoracic spine) - Derm Derm: Other (Laceration) - Extremities Extremities: No deformity - Neuro Neuro: Alert and oriented X 3, Normal speech - Psych Psych: Normal affect Results - Vitals Vitals: Vital Signs - 24 hr 10/15/17 10/15/17 10/15/17 12:12 13:43 14:30 Temperature 36.5 C Heart Rate 94 96 94 Respiratory 16 14 16 Rate Blood Pressure 123/87 H 121/79 125/69 O2 Saturation 99 96 95 10/15/17 10/15/17 16:02 16:41 Temperature Heart Rate 113 H 91 Respiratory 18 16 Rate Blood Pressure 120/87 H 113/76 O2 Saturation 97 95 Oxygen O2 Source Room air - EKG (time done) 14:46 Other comments: Other comments - Labs Labs: Laboratory Tests 10/15/17 10/15/17 10/15/17 13:16 13:16 13:16 WBC 11.5 H RBC 4.70 Hgb 11.3 L Hct 35.2 L MCV 74.9 L MCH 24.0 L MCHC 32.0 RDW 18.6 H Plt Count 273 MPV 7.8 Neut # (Auto) 9.6 H Lymph # (Auto) 1.0 L [place] # (Auto) 0.7 Eos # (Auto) 0.1 Baso # (Auto) 0.0 Absolute Nucleated RBC 0.00 Nucleated RBC % 0.0 Sodium 136 Potassium 4.2 Chloride 101 Carbon Dioxide 25 Anion Gap 10.0 BUN 47 H Creatinine 1.7 H Estimated GFR (MDRD) 38 L Glucose 187 H Calcium 9.1 Magnesium 1.9 Total Bilirubin 0.8 AST 20 ALT 14 Alkaline Phosphatase 65 Troponin I < 0.04 B-Natriuretic Peptide Total Protein 6.9 Albumin 3.2 Globulin 3.7 Albumin/Globulin Ratio 0.9 L Lipase 21 L Urine Color Urine Clarity Urine pH Ur Specific [place] Urine Protein Urine Glucose (UA) Urine Ketones Urine Occult Blood Urine Nitrite Urine Bilirubin Urine Urobilinogen Ur Leukocyte Esterase Urine RBC Urine WBC Urine WBC Clumps Ur Squamous Epith Cells Amorphous Sediment Urine Bacteria Urine Yeast Ur Microscopic Review Urine Culture Comments 10/15/17 10/15/17 13:16 15:56 WBC RBC Hgb Hct MCV MCH MCHC RDW Plt Count MPV Neut # (Auto) Lymph # (Auto) [place] # (Auto) Eos # (Auto) Baso # (Auto) Absolute Nucleated RBC Nucleated RBC % Sodium Potassium Chloride Carbon Dioxide Anion Gap BUN Creatinine Estimated GFR (MDRD) Glucose Calcium Magnesium Total Bilirubin AST ALT Alkaline Phosphatase Troponin I B-Natriuretic Peptide 227 H Total Protein Albumin Globulin Albumin/Globulin Ratio Lipase Urine Color YELLOW Urine Clarity CLOUDY Urine pH 6.5 Ur Specific [place] 1.010 Urine Protein TRACE Urine Glucose (UA) NEGATIVE Urine Ketones NEGATIVE Urine Occult Blood TRACE-LYSE Urine Nitrite NEGATIVE Urine Bilirubin NEGATIVE Urine Urobilinogen 0.2 (NORMAL) Ur Leukocyte Esterase MODERATE H Urine RBC 6-10 H Urine WBC >25 H Urine WBC Clumps PRESENT Ur Squamous Epith Cells FEW Squamous Amorphous Sediment Few Urine Bacteria Many H Urine Yeast PRESENT Ur Microscopic Review INDICATED Urine Culture Comments INDICATED - Rads (name of study) ct HEAD Radiology: Final report received (IMPRESSION: No acute intracranial abnormality. ) ct LUMBAR Radiology: Final report received PD MEDICAL DECISION MAKING - ED course ED course: The patient had 2 syncopal episodes today, given his age and history of structural heart disease the patient will require admission to the hospital for observation of the syncopal episode. And also the patient will require ongoing pain management for his back pain. The findings and plan were discussed the patient understands and agrees. The case was discussed with the hospitalist Dr. Shaver who accepts the patient onto his service. - Sepsis Event Vital Signs: Vital Signs - 24 hr 10/15/17 10/15/17 10/15/17 12:12 13:43 14:30 Temperature 36.5 C Heart Rate 94 96 94 Respiratory 16 14 16 Rate Blood Pressure 123/87 H 121/79 125/69 O2 Saturation 99 96 95 10/15/17 10/15/17 16:02 16:41 Temperature Heart Rate 113 H 91 Respiratory 18 16 Rate Blood Pressure 120/87 H 113/76 O2 Saturation 97 95 Oxygen O2 Source Room air Departure - Departure Disposition: ED Place in Observation Clinical Impression: Lumbar back pain Syncope Qualifiers: Syncope type: unspecified Qualified Code(s): R55 - Syncope and collapse Closed head injury Qualifiers: Encounter type: initial encounter Qualified Code(s): S09.90XA - Unspecified injury of head, initial encounter Condition: Good
[2017-10-15 16:03] LABS: BILIRUBIN,URINE NEGATIVE (NEGATIVE); GLUCOSE, URINE (UA) NEGATIVE (NEGATIVE); KETONES,URINE (UA) NEGATIVE (NEGATIVE); LEUKOCYTE ESTERASE, URINE MODERATE (NEGATIVE); NITRITE,URINE NEGATIVE (NEGATIVE); OCCULT BLOOD,URINE TRACE-LYSE (NEGATIVE); PH,URINE 6.5 PH (5.0-7.5); PROTEIN,URINE TRACE mg/dL (NEGATIVE); UROBILINOGEN,URINE 0.2 (NORMAL) E.U./dL (NORMAL)
[2017-10-15] MEDS ORDERED: fentaNYL 100 MCG/2 ML VIAL IVP STA (16:03)
[2017-10-15] MEDS ORDERED: ACETAMINOPHEN 500 MG TABLET PO STA (16:04)
[2017-10-15 16:05] LABS: CLARITY,URINE CLOUDY (CLEAR)
--- NOTE | 2017-10-15 16:17 | HISTORY & PHYSICAL EXAMINATION ---
Chief Complaint - Chief Complaint Chief Complaint: syncope and collapse History of Present Illness - Admitted From Admitted From:: ED - History Obtained From Records Reviewed: yes History obtained from: chart review, patient Exam Limitations: none - History of Present Illness HPI Comment/Other: Quentin Carranza is an 86-year old male with a past medical history of DM type 2, HTN , hyperlipidemia, GERD, hypothyroidism, CHF, TN with at least 8 coronary stents , pacemaker/ICD implant, PAD, PVD, valve disorders, COPD, peripheral neuropathy , status post L 5th toe removal, status post BLE stenting, BPH, urinary retention-status post chronic S/P cath, chronic bladder infections, recent bowel incontinence, CVA, and chronic hearing loss. The patient admits to similar syncopal episodes in his remote past, but nothing recent until today prior to arrival to the ED via EMS. The patient had a very brief warning which was a feeling of dizziness, mild diaphoresis, and mild shortness of breath. The next memory is when he wakes up on the floor after a fall. The patient had feeling of dizziness, for most of this morning. He struggled to get to an eye appointment, and after arriving at the eye doctor's office, came back home as he was too dizzy to sit in their exam chair. He traveled home with his son and was transferring out of the car, and admits to a complete loss of consciousness , in which he sustained a blow to his head and back. Imaging obtained in the ED show no acute fractures and the patient is neuro-intact upon exam with no obvious superficial injuries. The patient admits to about one week ago at 0330AM being woken up by an internal shock from his ICD ([employer]). He talked about being late for his device check up. He also states that prior to his fall, his blood sugar reading were low at 80, and he drank orange juice. Labs show mild leukocytosis with an elevated WBC count of 11.5, anemia with a hemoglobin of 11.3, and a hematocrit of 35.2, a low MCV of 74.9, an elevated BUN of 47, an elevated creatinine of 1.7, a reduced GFR of 38, and an elevated glucose of 187. The patient was found to have a normal troponin, and an elevated BNP of 227. A urine sample was obtained which shows a likely UTI with high WBCs, many bacteria, yeast present, and a culture is indicated and pending. He will be admitted to observation for further evaluation of this syncopal episode, started on antibiotics for a suspected UTI, records from his device clinic will be requested. History - Past Medical History Cardiovascular: reports: Congestive heart failure, Hypertension, High cholesterol, Coronary artery disease, Peripheral Vascular Disease, Deep vein thrombosis, TN, Murmur, Arrhythmia, Valve disorder, Other (ICD/pacemaker) Respiratory: reports: COPD, Emphysema Neuro: reports: CVA, Peripheral neuropathy Endocrine/Autoimmune: reports: Type 2 diabetes, HyPOthyroidism GI: reports: [employer] WAVE: reports: None : reports: Benign prostate hypertrophy, Retention, Chronic bladder infection, Indwelling catheter, Other (chronic S/P cath) HEENT: reports: Chronic vision loss, Chronic hearing loss Psych: reports: Anxiety Musculoskeletal: reports: Osteoarthritis Derm: reports: None MRSA Hx?: No - Past Surgical History Ortho: reports: Spine surgery Cardiovascular: reports: Coronary stent, Valve replacement, Pacemaker, AICD Derm: reports: Skin cancer surgery - Family & Social History Family History: Mother: , Father: , CAD, Sister: , Cancer Family History Comment/Other: The patient states that his mother in her 80's, from heart disease. His father in his 70's from CAD. He had a 1/2 sister who after stomach CA. 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 He was to his of 61 years, and she has since ~ 6 years ago after a carter with lung CA. They had 3 girls, and one son. The patient has been in and out of nursing facilities, and hospitals, but currently lives semi-privately with his son, Eric in his own apartment. He denies tobacco, alcohol, or illicit drug use in his life. He wishes to be a DNR. - Substance History Use: Uses substance without health or social issues: NONE Abuse: Recurrent use of substance despite neg consequences: NONE Dependence: Experiences withdrawal or developed tolerances: NONE Tobacco Details: Occupational Exposure (The patient believes that he was exposed to several chemicals in the 1950-60's including Round up.) - POLST Patient has POLST: No POLST Status: DNR Meds/Allgy - Home Medications Home Medications: Ambulatory Orders Medication Instructions Recorded Confirmed Acetaminophen [Pain Reliever] 500 mg PO Q6H PRN 05/31/17 08/24/17 Clopidogrel [Plavix] 75 mg PO DAILY 05/31/17 10/15/17 Fludrocortisone [Florinef] 0.1 mg PO DAILY 05/31/17 10/15/17 HYDROcod/ACETAM 5/325 [[place] 5/325] 1 - 2 ea PO Q6H PRN #15 tablet 05/31/17 Levothyroxine Sodium [Synthroid] 75 mcg PO DAILY 05/31/17 10/15/17 Metoprolol Succinate [Toprol Xl] 25 mg PO DAILY 05/31/17 10/15/17 Polyethylene Glycol 3350 [Glycolax] 17 gm DAILY 05/31/17 08/24/17 Tamsulosin [Flomax] 0.4 mg DAILY 05/31/17 10/15/17 Aspirin [Aspirin EC] 81 mg PO DAILY 10/15/17 10/15/17 Famotidine [Pepcid] 20 mg PO ONCE 10/15/17 10/15/17 Insulin Regular Human [NovoLIN R] 25 unit SUBQ BID 10/15/17 10/15/17 Psyllium [Metamucil] 1 pkt PO DAILY 10/15/17 10/15/17 Sennosides [Natural Laxative] 1 tab PO DAILY 10/15/17 10/15/17 Torsemide [Demadex] 20 mg PO BID 10/15/17 10/15/17 - Allergies Allergies/Adverse Reactions: Allergies Allergy/AdvReac Type Severity Reaction Status Date / Time pregabalin [From Lyrica] Allergy Unknown Verified 10/15/17 12:20 Sulfa (Sulfonamide Allergy Unknown Verified 10/15/17 12:20 Antibiotics) tetracycline Allergy Unknown Verified 10/15/17 12:20 Review of Systems - Constitutional Constitutional: reports: Fatigue, Weakness, Poor appetite, Diaphoresis - Eyes Eyes: reports: Corrective lenses - Ears, Nose & Throat Ears, Nose & Throat: reports: Hearing loss - Cardiovascular Cariovascular: reports: Irregular heart rate, Palpitations, Edema, Lightheadedness, Syncope, Decr. exercise tolerance, Orthopnea, Other (ICD fired at 0330 about 1 week ago) - Respiratory Respiratory: reports: Orthopnea, SOB at rest, SOB with exertion - Gastrointestinal Gastrointestinal: reports: Abdominal distention, Constipation, Diarrhea, Change in bowel habits, Reflux/heartburn, Poor appetite, Other (recent bowel incontinience) - Genitourinary Genitourinary: reports: Other (chronic indwelling S/P cath) - Musculoskeletal Musculoskeletal: reports: Back pain, Muscle aches, Stiffness, Limited range of motion, Muscle weakness, Joint pain, Joint swelling - Integumentary Integumentary: reports: Lesions, Dryness, Pigment changes - Neurological Neurological: reports: General weakness, Focal weakness, Dizziness, Numbness, Pre-existing deficit, Abnormal gait, Incoordination - Psychiatric Psychiatric: reports: Anxiety - Hematologic/Lymphatic Hematologic/Lymphatic: reports: Anemia, Recurrent infections - All Other Systems All Other Systems: reports: Reviewed and negative Exam - Vital Signs Reviewed Vital Signs: Yes Vital Signs: Vital Signs x48h Temp Pulse Resp BP Pulse Ox 10/15/17 16:02 113 H 18 120/87 H 97 10/15/17 14:30 94 16 125/69 95 10/15/17 13:43 96 14 121/79 96 10/15/17 12:12 36.5 C 94 16 123/87 H 99 - Physical Exam General Appearance: positive: No acute distress, Alert Eyes Bilateral: positive: Normal inspection, PERRL ENT: positive: ENT inspection nml, Pharynx nml, No signs of dehydration Neck: positive: Nml inspection, Thyroid nml, No JVD, Trachea midline Respiratory: positive: Chest non-tender, No respiratory distress, Other ( diminished, bilaterally) Cardiovascular: positive: No gallop, Irregularly irregular, Tachycardia, Systolic murmur Peripheral Pulses: positive: 1+, Other (very weak pulses, extremities are warm) Abdomen: positive: Non-tender, Nml bowel sounds, Other (rounded, soft) Back: positive: CVA tenderness (R), CVA tenderness (L) Skin: positive: Color nml, Warm, Dry, Other (penis lesion, related to under-use and [id number] contact) Extremities: positive: Pedal edema, Joint swelling, Other (Charcot foot LEFT, profound peripheral neuropathy-chronic) Neurologic/Psychiatric: positive: Oriented x3, CN's nml (2-12), Weakness, Sensory loss, Depressed mood/affect Reflexes: Bicep (R): 1+, Bicep (L): 1+ Comments/Other: Unable to perform a hand mucker cofferdam due to profound BUE hand/finger atrophy. Conclusion/Plan - Problem List (1) Syncope and collapse Conclusion/Plan: The patient had an unwitnessed fall, but very soon response by his son. The patient admits to a complete loss of consciousness, and sustained a blow to his head and back. Imaging obtained in the ED show no acute fractures and the patient is neuro-intact upon exam. The patient admits to about one week ago at 0330AM being woken up by an internal shock from his ICD ([employer]). He talked about being late for his device check up. He also states that prior to his fall, his blood sugar reading were low at 80, and he drank orange juice. Plan: Keep in observation for a full syncope work up including continuous telemetry, echocardiogram, orthostatic vital signs, labs, evaluation of routine labs, carotid dopplers and possible repeat head CT w/wo contrast in the AM depending on kidney function. (2) Fall Conclusion/Plan: The patient admits to similar episodes in his remote past, but nothing recent until today prior to arrival to the ED via EMS. The patient had a very brief warning which was a feeling of dizziness, mild diaphoresis, and mild shortness of breath. The next memory is when he wakes up on the floor after a fall. The patient had feeling of dizziness, for most of this morning. He struggled to get to an eye appointment, and after arriving at the eye doctor's office, came back home as he was too dizzy to sit in their exam chair. Plan: Continue syncope work up, fall precautions, telemetry. Qualifiers: Encounter type: subsequent encounter Qualified Code(s): W19.XXXD - Unspecified fall, subsequent encounter (3) CHF (congestive heart failure) Conclusion/Plan: The patient is prescribed torsemide BID at home, metoprolol succinate, and an ARB for medical management of his CHF. I suspect combined CHF, but an echocardiogram is pending. A BNP was elevated at greater than 200 upon admission. He has only slightly diminished crackles in his low bases upon exam and does not require oxygen. He has a negative troponin, FLAKO, and chronic, BLE with and increased abdominal girth. Plan: Replenish fluid status overnight with holding diuretic, and gentle IVFs. Monitor BNP, labs, and respiratory status. (4) BPH (benign prostatic hyperplasia) Conclusion/Plan: The patient remains with a chronic S/P cath and takes Flomax daily. Plan: Continue care, chronic thibodeaux via S/P cath. (5) Diabetes mellitus type 2 in nonobese Conclusion/Plan: The patient states that he was first diagnosed with DM in 1983. Since that time he has had several vascular complications including chronic peripheral neuropathy, TN with coronary stenting, vascular disease in his extremities with BLE stenting, BPH leading to chronic obstruction, HTN, hyperlipidemia, and a recent stroke. He does not know his most recent hemoglobin A1C, and this has been ordered for the AM. He is scheduled BID fast acting Humilin insulin. He admits to a low blood sugar at 80 this morning, and states that for the past week he has been running high at levels ~300. Plan: Continue with AC/HS blood glucose monitoring, and add Lantus if needed. (6) Hearing loss Conclusion/Plan: Luckily, the patient was quite a good historian, and his hearing impairment is less obvious that if he were demented combined with the hearing loss. He was very good at asking for clarification, knew his medical conditions and could articulate very appropriately upon exam. Plan: Take extra time with communication and use a communication board if needed. (7) Closed head injury Conclusion/Plan: The patient struck his head as he fell to the ground during his syncopal episode. Imaging in the ED shows no evidence of bleeding. Plan: Monitor for worsening mental status, new vision changes, or headaches. Qualifiers: Encounter type: initial encounter Qualified Code(s): S09.90XA - Unspecified injury of head, initial encounter (8) Urinary tract infection Conclusion/Plan: The patient is tachycardic, mildly hypotensive, has an elevated WBC count and has suspicious finding in his UA for an acute UTI. This may be a contributing factor for his syncope and I will start him on IV Rocephin. Plan: Await urine culture results, maintain S/P cath, monitor vital signs, and monitor mental status. Qualifiers: Indwelling urinary catheter type: indwelling urethral catheter Encounter type: subsequent encounter (9) Lumbar back pain Conclusion/Plan: The patient complained of new low back pain since having his syncopal episode prior to admission. Imaging of his lumbar spine shows no acute fractures. The patient's mobility has been slowly declining and during his admission exam, he was having discomfort, was grimacing but denied treatment with pain medications when asked. Plan: IV dilaudid PRN, k-pad for comfort and PT/OT to evaluate in the AM. - Lab Results Lab results reviewed: Yes Fish Bones: 10/15/17 13:16 10/15/17 13:16 - Diagnostic Imaging Results Diagnostic Imaging Results: positive: Prelim report reviewed, Final report reviewed - EKG Results EKG Interpreted Independently: Yes Core Measures - Anticipated LOS I expect patient to be DC'd or transferred within 96 hours.: Yes - DVT/VTE - Prophylaxis VTE/DVT Device ordered at admit?: Yes VTE/DVT Prophylaxis med ordered at admit?: Yes - Stroke - Rehab Assessment Rehab services assessment to be ordered?: Yes - AMI - Statin at Admit Aspirin Prescribed on Admit: Yes
[2017-10-15 16:26] LABS: AMORPHOUS SEDIMENT,UR Few /LPF; BACTERIA,URINE Many /HPF (None Seen); SQUAMOUS EPITHELIAL CELL,UR FEW Squamous (<= Few); WBC CLUMPS,URINE PRESENT; YEAST,URINE PRESENT
[2017-10-15] MEDS ORDERED: HYDROcod/ACETAM 5/325 MG TABLET PO PRN (19:26)
[2017-10-15] MEDS ORDERED: MIN OIL/DIMETHICON/COCONUT OIL 92 GM TUBE TOP PRN (19:48)
[2017-10-15] MEDS ORDERED: FAMOTIDINE 20 MG TABLET PO SCH (20:00)
[2017-10-15] MEDS ORDERED: TEMAZEPAM 7.5 MG CAPSULE PO PRN (20:53)
[2017-10-15] MEDS ORDERED: SODIUM CHLORIDE 0.9% 1,000 ML IV SCH (22:00)
[2017-10-15] MEDS: SODIUM CHLORIDE FLUSH 0.9% 10 ML SYRINGE IVP SCH (22:03)
[2017-10-15] MEDS: HYDROmorphone 0.5 MG/0.5 ML SYRINGE IVP PRN (22:45)
[2017-10-15] MEDS ORDERED: cefTRIAXone 1 GM in SODIUM CHLORIDE 0.9% MINIBAG 100 ML IV SCH (23:00)
[2017-10-15] MEDS ORDERED: INSULIN GLARGINE 300 UNIT/3 ML PEN SUBQ SCH (23:00)
[2017-10-15 23:47] LABS: HB2 TOTAL 12.4 g/dL; HEMOGLOBIN A1C 1.19 g/dL; HEMOGLOBIN A1C % 10.9 % (4.6-6.2)
[2017-10-16] MEDS ORDERED: HYDROcod/ACETAM 5/325 MG TABLET PO PRN (00:50)
[2017-10-16] MEDS: ONDANSETRON 4 MG/2 ML VIAL IVP PRN (01:47)
[2017-10-16] MEDS: SODIUM CHLORIDE FLUSH 0.9% 10 ML SYRINGE IVP SCH ×3 (01:48→16:51)
[2017-10-16] MEDS ORDERED: PANTOPRAZOLE 40 MG VIAL IVP STA (03:03)
[2017-10-16] MEDS ORDERED: PROMETHAZINE INJ 12.5 MG in SODIUM CHLORIDE 0.9% 50 ML IV PRN (03:07)
[2017-10-16] MEDS ORDERED: SODIUM CHLORIDE 0.9% 500 ML IV ONE (03:16)
[2017-10-16] MEDS ORDERED: PROMETHAZINE 25 MG/1 ML VIAL ONE (03:20)
[2017-10-16] MEDS: SODIUM CHLORIDE FLUSH 0.9% 10 ML SYRINGE IVP PRN ×3 (03:38→12:58)
--- NOTE | 2017-10-16 03:52 | XRAY Report ---
Reason: SBO Procedure Date: 10/16/2017 Accession Number: [id number] / [id number] Procedure: XR - Abdomen 1 View X-Ray CPT Code: 33006 FULL RESULT: EXAM: ABDOMEN RADIOGRAPHY EXAM DATE: 10/16/2017 03:44 AM. CLINICAL HISTORY: Abdominal pain, history of small bowel obstruction COMPARISON: Acute abdomen series 12/07/2009. TECHNIQUE: 1 view. FINDINGS: Bowel Gas Pattern: No small bowel dilatation. Large amount of stool throughout the colon to the rectum. Other: None. IMPRESSION: Large amount of stool throughout the colon. No small bowel dilatation. RADIA
[2017-10-16] MEDS: PANTOPRAZOLE 80 MG in SODIUM CHLORIDE 0.9% 100ML 100 ML IV SCH ×2 (03:56→13:21)
[2017-10-16 04:00] LABS: GASTROCCULT POSITIVE (Negative)
[2017-10-16 04:17] LABS: BASOPHILS % (AUTO) 1.1 %; EOSINOPHILS % (AUTO) 0.2 %; HGB - HEMOGLOBIN 11.4 g/dL (14.0-18.0); LYMPHOCYTES % (AUTO) 5.6 %; MEAN CORPUSCULAR HEMOGLOBIN 24.1 pg (27.0-31.0); MEAN CORPUSCULAR HGB CONC 31.7 g/dL (32.0-36.0); MEAN CORPUSCULAR VOLUME 75.9 fL (80.0-94.0); MEAN PLATELET VOLUME 8.1 fL (7.4-11.4); MONOCYTES % (AUTO) 2.7 %; NEUTROPHILS % (AUTO) 90.4 %; PLT - PLATELET COUNT 247 10^3/uL (130-450); RED BLOOD COUNT 4.73 10^6/uL (4.70-6.10); RED CELL DISTRIBUTION WIDTH 18.9 % (12.0-15.0); WHITE BLOOD COUNT 11.2 x10^3/uL (4.8-10.8)
[2017-10-16 04:24] LABS: ABNORMAL LYMPHS % (MANUAL) 0 %
[2017-10-16] MEDS ORDERED: PANTOPRAZOLE 40 MG VIAL IVP SCH (04:29)
[2017-10-16 04:30] LABS: ALBUMIN 3.1 g/dL (3.2-5.5); ALBUMIN/GLOBULIN RATIO 0.9 (1.0-2.2); CALCIUM 8.8 mg/dL (8.5-10.3); CREATININE 1.6 mg/dL (0.6-1.2); CRP - C-REACTIVE PROTEIN 8.5 mg/dL (0-1.0); MAGNESIUM 1.9 mg/dL (1.7-2.8); TOTAL PROTEIN 6.6 g/dL (6.7-8.2)
[2017-10-16] MEDS: HYDROmorphone 0.5 MG/0.5 ML SYRINGE IVP PRN ×3 (04:59→20:09)
[2017-10-16] MEDS ORDERED: METOPROLOL 5 MG/5 ML VIAL IVP SCH (05:00)
--- NOTE | 2017-10-16 05:06 | XRAY Report ---
Reason: NG tube placement Procedure Date: 10/16/2017 Accession Number: [id number] / [id number] Procedure: XR - Chest 1 View X-Ray CPT Code: 67678 FULL RESULT: EXAM: CHEST RADIOGRAPHY EXAM DATE: 10/16/2017 05:01 AM. CLINICAL HISTORY: Nasogastric tube placement COMPARISON: CHEST 2 VIEW 10/15/2017 ABDOMEN 1 VIEW 10/16/2017 3:18 AM. TECHNIQUE: 1 view. FINDINGS: Lungs/Pleura: No focal opacities evident. No pleural effusion. No pneumothorax. Mediastinum: Cardiomegaly and changes of previous cardiac surgery. Left subclavian 3-lead pacemaker. Other: Enteric tube terminating in the stomach. IMPRESSION: Enteric tube terminating in the stomach. RADIA
[2017-10-16 05:11] LABS: HB2 TOTAL 12.1 g/dL; HEMOGLOBIN A1C 1.14 g/dL; HEMOGLOBIN A1C % 10.8 % (4.6-6.2)
[2017-10-16] MEDS: cefTRIAXone 1 GM in SODIUM CHLORIDE 0.9% MINIBAG 100 ML IV SCH (06:10)
[2017-10-16 06:13] LABS: BAND NEUTROPHILS % (MANUAL) 6 %; LYMPHOCYTES # (MANUAL) 0.4 10^3/uL (1.5-3.5); LYMPHOCYTES % (MANUAL) 4 %; MONOCYTES # (MANUAL) 0.8 10^3/uL (0.0-1.0); NEUTROPHILS % (MANUAL) 83 %
[2017-10-16 06:14] LABS: DIFFERENTIAL COMMENT MANUAL DIFFERENTIAL; PLATELET ESTIMATE, MANUAL NORMAL (130-450,000) (NORMAL)
[2017-10-16] MEDS: LEVOTHYROXINE 75 MCG TABLET PO SCH (07:04)
[2017-10-16] MEDS ORDERED: INSULIN ASPART 300 UNIT/3 ML PEN SUBQ SCH ×2 (08:00)
[2017-10-16] MEDS ORDERED: INSULIN REGULAR HUMAN 100 UNIT/1 ML 10 ML MDV SUBQ SCH (08:15)
[2017-10-16] MEDS ORDERED: ASPIRIN EC 81 MG TABLET PO SCH (09:00)
[2017-10-16] MEDS ORDERED: METOPROLOL SUCCINATE 25 MG TABLET PO SCH (09:00)
[2017-10-16] MEDS ORDERED: SENNA 8.6 MG TABLET PO SCH (09:00)
[2017-10-16] MEDS ORDERED: PSYLLIUM PACKET PO SCH (09:00)
[2017-10-16] MEDS ORDERED: CLOPIDOGREL 75 MG TABLET PO SCH (09:00)
[2017-10-16] MEDS ORDERED: POLYETHYLENE GLYCOL 3350 17 GM PACKET PO SCH (09:00)
--- NOTE | 2017-10-16 09:13 | PROVIDER PROGRESS NOTE ---
Subjective - Prog Note Date Prog Note Date: 10/16/17 Prog Note Time: 09:12 - Subjective Pt reports feeling: No change Subjective: Quentin complains on ongoing back pain related to his fall yesterday. He notes that the pain is increased with movement. He denies new symptoms such as nausea , vomiting, increased dizziness, chest pain, increased shortness of breath, or a new cough. Current Medications - Current Medications Current Medications: Active Medications Bisacodyl (Dulcolax) 10 mg PO DAILY [facility] Last Admin: 10/16/17 10:35 Dose: 10 mg Bisacodyl (Dulcolax Supp) 10 mg KS DAILY PRN PRN Reason: Constipation Hydromorphone HCl (Dilaudid Inj Syringe) 0.5 mg IVP Q2H PRN PRN Reason: PAIN Last Admin: 10/16/17 12:57 Dose: 0.5 mg Pantoprazole Sodium 80 mg/ (Sodium Chloride) 100 mls @ 10 mls/hr IV .Q10H [facility] Last Admin: 10/16/17 13:21 Dose: 10 mls/hr Promethazine HCl 12.5 mg/ (Sodium Chloride) 50.5 mls @ 100 mls/hr IV Q6H PRN PRN Reason: Nausea / Vomiting Last Infusion: 10/16/17 06:44 Dose: Infused Ceftriaxone Sodium 1 gm/ (Sodium Chloride) 100 mls @ 200 mls/hr IV DAILY@0600 [facility] Last Infusion: 10/16/17 07:04 Dose: Infused Insulin Aspart (Novolog) 1 - 9 unit SUBQ 0800,1200,1700,2100 [facility] PRN Reason: Protocol Last Admin: 10/16/17 11:25 Dose: 7 unit Insulin Glargine (Lantus Solostar) 10 unit SUBQ QPM [facility] Levothyroxine Sodium (Synthroid) 75 mcg PO QDAC [facility] Last Admin: 10/16/17 07:04 Dose: 75 mcg Metoclopramide HCl (Reglan) 10 mg PO ACHS [facility] Last Admin: 10/16/17 10:36 Dose: 10 mg Metoprolol Succinate (Toprol Xl) 50 mg PO BID [facility] Last Admin: 10/16/17 10:35 Dose: 50 mg Mineral Oil (Cavilon) 1 applic TOP PRN PRN PRN Reason: Skin Care Ondansetron HCl (Zofran Inj) 4 mg IVP Q4HR PRN PRN Reason: Nausea / Vomiting Last Admin: 10/16/17 01:47 Dose: 4 mg Polyethylene Glycol (Miralax) 17 gm PO DAILY PRN PRN Reason: Bowel Protocol Sodium Chloride (Normal Saline Flush 0.9%) 10 ml IVP PRN PRN PRN Reason: NEEDED PER PROVIDER ORDERS Last Admin: 10/16/17 12:58 Dose: 10 ml Sodium Chloride (Normal Saline Flush 0.9%) 10 ml IVP 0100,0900,1700 [facility] Last Admin: 10/16/17 13:06 Dose: Not Given Torsemide (Torsemide) 20 mg PO BID [facility] Last Admin: 10/16/17 10:36 Dose: 20 mg Acetaminophen [Pain Reliever] 500 mg PO Q6H PRN 05/31/17 Clopidogrel [Plavix] 75 mg PO DAILY 05/31/17 Fludrocortisone [Florinef] 0.1 mg PO DAILY 05/31/17 Levothyroxine Sodium [Synthroid] 75 mcg PO DAILY 05/31/17 Metoprolol Succinate [Toprol Xl] 25 mg PO DAILY 05/31/17 Polyethylene Glycol 3350 [Glycolax] 17 gm PO DAILY 05/31/17 Tamsulosin [Flomax] 0.4 mg DAILY 05/31/17 Aspirin [Aspirin EC] 81 mg PO DAILY 10/15/17 Famotidine [Pepcid] 20 mg PO ONCE 10/15/17 Insulin Regular Human [NovoLIN R] 15 - 30 unit SUBQ ACHS 10/15/17 Psyllium [Metamucil] 1 pkt PO DAILY 10/15/17 Sennosides [Natural Laxative] 1 tab PO DAILY 10/15/17 Torsemide [Demadex] 20 mg PO BID 10/15/17 Insulin NPH Human Isophane [Novolin N] 60 unit SUBQ BID 10/16/17 Objective - Vital Signs/Intake & Output Reviewed Vital Signs: Yes Vital Signs: Vital Signs x48h Temp Pulse Resp BP BP Pulse Ox 10/16/17 08:00 37.3 C 105 H 22 137/61 H 92 10/16/17 07:02 128/63 10/16/17 06:17 36.4 C L 102 H 18 128/63 92 10/16/17 02:43 107 H 20 155/76 H 92 Intake & Output: Intake & Output 10/13/17 10/14/17 10/15/17 10/16/17 23:59 23:59 23:59 23:59 Intake Total 279.722 200.5 Output Total 775 725 Balance -495.278 -524.5 - Objective General Appearance: positive: No acute distress, Alert, Lethargic Eyes Bilateral: positive: Normal inspection Eyes: OU Conjunctivae pale ENT: positive: ENT inspection nml, Pharynx nml, Pharyngeal erythema, Dry mucous membranes Neck: positive: Nml inspection, Thyroid nml, No JVD, Trachea midline Respiratory: positive: Chest non-tender, No respiratory distress, Rhonchi ( crackles in bilateral bases.) Cardiovascular: positive: No gallop, Irregularly irregular, Tachycardia, Systolic murmur, Decreased pulse(s) Peripheral Pulses: 1+ Radial (R), 1+ Radial (L) Abdomen: positive: Non-tender, Nml bowel sounds, Other (rounded, soft) Back: positive: Nml inspection, CVA tenderness (R), CVA tenderness (L) Skin: positive: No rash, Warm, Dry Extremities: positive: Non-tender, Pedal edema (chronic, dependent BLE), Joint swelling Neurologic/Psychiatric: positive: Oriented x3, CN's nml (2-12), Motor nml, Weakness, Slurred/abnml speech (sluggish speech), Depressed mood/affect Reflexes: Bicep (R): 2+, Bicep (L): 2+ - Lab Results Fish Bones: 10/16/17 04:00 10/16/17 04:00 Other Labs: Lab Results x24hrs 10/16/17 10/16/17 10/16/17 Range/Units 04:00 04:00 04:00 WBC (4.8-10.8) x10^3/uL RBC (4.70-6.10) 10^6/uL Hgb (14.0-18.0) g/dL Hct (42.0-52.0) % MCV (80.0-94.0) fL MCH (27.0-31.0) pg MCHC (32.0-36.0) g/dL RDW (12.0-15.0) % Plt Count (130-450) 10^3/uL MPV (7.4-11.4) fL Neut # (Auto) Lymph # (Auto) Pender # (Auto) Eos # (Auto) Baso # (Auto) Absolute Nucleated RBC Total Counted Band Neuts % (Manual) (0 - 10) % Abnorm Lymph % (Manual) % Nucleated RBC % Neutrophils # (Manual) (1.5-6.6) 10^3/uL Lymphocytes # (Manual) (1.5-3.5) 10^3/uL Monocytes # (Manual) (0.0-1.0) 10^3/uL Eosinophils # (Manual) (0-0.7) 10^3/uL Basophils # (Manual) (0-0.1) 10^3/uL Differential Comment Platelet Estimate (NORMAL) RBC Morph Micro Appear (NORMAL) ESR 28 H (0-20) mm/Hr Sodium (135-145) mmol/L Potassium (3.5-5.0) mmol/L Chloride (101-111) mmol/L Carbon Dioxide (21-32) mmol/L Anion Gap (6-13) BUN (6-20) mg/dL Creatinine (0.6-1.2) mg/dL Estimated GFR (MDRD) (>89) Glucose (70-100) mg/dL Glycated Hemoglobin (4.6-6.2) % Estim Average Glucose (70-100) Calcium (8.5-10.3) mg/dL Magnesium (1.7-2.8) mg/dL Total Bilirubin (0.2-1.0) mg/dL AST (10-42) IU/L ALT (10-60) IU/L Alkaline Phosphatase (42-121) IU/L Troponin I < 0.04 (<0.49) ng/mL C-Reactive Protein (0-1.0) mg/dL B-Natriuretic Peptide (5-100) pg/mL Total Protein (6.7-8.2) g/dL Albumin (3.2-5.5) g/dL Globulin (2.1-4.2) g/dL Albumin/Globulin Ratio (1.0-2.2) TSH (0.34-5.60) uIU/mL Gastric Fluid pH Gastric Occult Blood (Negative) Blood Type O POSITIVE Antibody Screen NEGATIVE 10/16/17 10/16/1710/16/18 Range/Units 04:00 04:00 04:00 WBC (4.8-10.8) x10^3/uL RBC (4.70-6.10) 10^6/uL Hgb (14.0-18.0) g/dL Hct (42.0-52.0) % MCV (80.0-94.0) fL MCH (27.0-31.0) pg MCHC (32.0-36.0) g/dL RDW (12.0-15.0) % Plt Count (130-450) 10^3/uL MPV (7.4-11.4) fL Neut # (Auto) Lymph # (Auto) Pender # (Auto) Eos # (Auto) Baso # (Auto) Absolute Nucleated RBC Total Counted Band Neuts % (Manual) (0 - 10) % Abnorm Lymph % (Manual) % Nucleated RBC % Neutrophils # (Manual) (1.5-6.6) 10^3/uL Lymphocytes # (Manual) (1.5-3.5) 10^3/uL Monocytes # (Manual) (0.0-1.0) 10^3/uL Eosinophils # (Manual) (0-0.7) 10^3/uL Basophils # (Manual) (0-0.1) 10^3/uL Differential Comment Platelet Estimate (NORMAL) RBC Morph Micro Appear (NORMAL) ESR (0-20) mm/Hr Sodium 135 (135-145) mmol/L Potassium 4.4 (3.5-5.0) mmol/L Chloride 102 (101-111) mmol/L Carbon Dioxide 23 (21-32) mmol/L Anion Gap 10.0 (6-13) BUN 45 H (6-20) mg/dL Creatinine 1.6 H (0.6-1.2) mg/dL Estimated GFR (MDRD) 41 L (>89) Glucose 309 H (70-100) mg/dL Glycated Hemoglobin (4.6-6.2) % Estim Average Glucose (70-100) Calcium 8.8 (8.5-10.3) mg/dL Magnesium 1.9 (1.7-2.8) mg/dL Total Bilirubin 1.0 (0.2-1.0) mg/dL AST 18 (10-42) IU/L ALT 13 (10-60) IU/L Alkaline Phosphatase 63 (42-121) IU/L Troponin I (<0.49) ng/mL C-Reactive Protein 8.5 H (0-1.0) mg/dL B-Natriuretic Peptide 201 H (5-100) pg/mL Total Protein 6.6 L (6.7-8.2) g/dL Albumin 3.1 L (3.2-5.5) g/dL Globulin 3.5 (2.1-4.2) g/dL Albumin/Globulin Ratio 0.9 L (1.0-2.2) TSH 4.20 (0.34-5.60) uIU/mL Gastric Fluid pH Gastric Occult Blood (Negative) Blood Type Antibody Screen 10/16/17 10/16/17 10/16/17 Range/Units 04:00 04:00 02:45 WBC 11.2 H (4.8-10.8) x10^3/uL RBC 4.73 (4.70-6.10) 10^6/uL Hgb 11.4 L (14.0-18.0) g/dL Hct 35.9 L (42.0-52.0) % MCV 75.9 L (80.0-94.0) fL MCH 24.1 L (27.0-31.0) pg MCHC 31.7 L (32.0-36.0) g/dL RDW 18.9 H (12.0-15.0) % Plt Count 247 (130-450) 10^3/uL MPV 8.1 (7.4-11.4) fL Neut # (Auto) Not Reportable Lymph # (Auto) Not Reportable Pender # (Auto) Not Reportable Eos # (Auto) Not Reportable Baso # (Auto) Not Reportable Absolute Nucleated RBC Not Reportable Total Counted 100 Band Neuts % (Manual) 6 (0 - 10) % Abnorm Lymph % (Manual) 0 % Nucleated RBC % Not Reportable Neutrophils # (Manual) 10.0 H (1.5-6.6) 10^3/uL Lymphocytes # (Manual) 0.4 L (1.5-3.5) 10^3/uL Monocytes # (Manual) 0.8 (0.0-1.0) 10^3/uL Eosinophils # (Manual) 0.0 (0-0.7) 10^3/uL Basophils # (Manual) 0.0 (0-0.1) 10^3/uL Differential Comment MANUAL DIFFERENTIAL Platelet Estimate NORMAL (130-450,000) (NORMAL) RBC Morph Micro Appear 1+ OVALOCYTES (NORMAL) ESR (0-20) mm/Hr Sodium (135-145) mmol/L Potassium (3.5-5.0) mmol/L Chloride (101-111) mmol/L Carbon Dioxide (21-32) mmol/L Anion Gap (6-13) BUN (6-20) mg/dL Creatinine (0.6-1.2) mg/dL Estimated GFR (MDRD) (>89) Glucose (70-100) mg/dL Glycated Hemoglobin 10.8 H (4.6-6.2) % Estim Average Glucose 263 H (70-100) Calcium (8.5-10.3) mg/dL Magnesium (1.7-2.8) mg/dL Total Bilirubin (0.2-1.0) mg/dL AST (10-42) IU/L ALT (10-60) IU/L Alkaline Phosphatase (42-121) IU/L Troponin I (<0.49) ng/mL C-Reactive Protein (0-1.0) mg/dL B-Natriuretic Peptide (5-100) pg/mL Total Protein (6.7-8.2) g/dL Albumin (3.2-5.5) g/dL Globulin (2.1-4.2) g/dL Albumin/Globulin Ratio (1.0-2.2) TSH (0.34-5.60) uIU/mL Gastric Fluid pH 6.0 Gastric Occult Blood POSITIVE (Negative) Blood Type Antibody Screen ABX Reporting Has patient been on IV antibiotics over the past 48 hours?: Yes Assessment/Plan - Problem List (1) Syncope and collapse Impression: The patient had an unwitnessed fall, but very soon response by his son. The patient admits to a complete loss of consciousness, and sustained a blow to his head and back. Imaging obtained in the ED show no acute fractures and the patient is neuro-intact upon exam. The patient admits to about one week ago at 0330AM being woken up by an internal shock from his ICD ([employer]). He talked about being late for his device check up. Today I attempted to get a current reading from the ED [employer] device, but this was unable to be appropriately downloaded as this device is thought to be lacking the most current update as per phone rep. He also states that prior to his fall, his blood sugar reading were low at 80, and he drank orange juice. Today, there have been no hypoglycemic episodes and the patient remains on SSI insulin only of which he received 7 units of Aspart for a blood glucose reading of 277. Plan: Continue Lantus, await carotid doppler results, continue fall precautions , and monitor. (2) Abdominal pain Impression: The patient was having abdominal discomfort, and had suspected blood in his emesis last evening, so an abdominal x-ray was obtained and showed a large amount of stool in the colon. An NG tube was placed overnight, and discontinued this AM. The patient continues to have a very poor appetite. Plan: Continue to monitor and give laxatives, stool softeners, and consider an enema/suppository if no results. (3) Fall Impression: The patient admits to similar episodes in his remote past, but nothing recent until today prior to arrival to the ED via EMS. The patient had a very brief warning which was a feeling of dizziness, mild diaphoresis, and mild shortness of breath. The next memory is when he wakes up on the floor after a fall and prior to the episodes, the patient had feeling of dizziness. Physical therapy worked with the patient, and reports continued back discomfort, but the patient was very willing to participate. Plan: Continue syncope work up, fall precautions, telemetry. Qualifiers: Encounter type: subsequent encounter Qualified Code(s): W19.XXXD - Unspecified fall, subsequent encounter (4) CHF (congestive heart failure) Impression: The patient is prescribed torsemide BID at home, metoprolol succinate, and an ARB for medical management of his CHF. Preliminary echo results show overall poor heart function and an estimated EF of only ~20%. A BNP was elevated at 277 upon admission and this morning is noted to be 201. He is slightly hypoxic today with an oxygen saturation of just 91% on room air while in bed, which improved to 94% after getting to the chair as per PT. He had at least 2 negative troponins, FLAKO on CKD, and chronic, BLE with and increased abdominal girth. I have increased his metoprolol succinate to 50 mg PO BID while hospitalized since he continues to have tachycardia with heart rates greater than 110. Since he has a pacemaker, I can give high does of the beta jamir with the goal being ~200mg PO daily to gain the CHF medical management benefits. Plan: Resume torsemide PO, Monitor BNP, labs, and respiratory status. (5) BPH (benign prostatic hyperplasia) Impression: The patient remains with a chronic S/P cath and takes Flomax daily, which was on hold in light of the patient's FLAKO. The catheter was changed about 2-3 prior to admission as per patient. A urine culture that was obtained in the ED is pending. Plan: Continue care, chronic thibodeaux via S/P cath. Qualifiers: Lower urinary tract symptom presence: unspecified whether lower urinary tract symptoms present Qualified Code(s): N40.0 - Benign prostatic hyperplasia without lower urinary tract symptoms (6) Diabetes mellitus type 2 in nonobese Impression: The patient states that he was first diagnosed with DM in 1983. 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 He does not know his most recent hemoglobin A1C, and this has been ordered for the AM. He is scheduled BID fast acting Humilin insulin. He admits to a low blood sugar at 80 on the morning of his fall, and states that for the past week he has been running high at levels ~300. With his suspected UTI, this is the most likely cause of hyperglycemia. He is prescribed NPH at home, that will likely be adjusted down upon discharge to prevent additional hypoglycemia. Someone his age should NEVER have BSs less than 120, as this increased the risk for falls. Plan: Continue with AC/HS blood glucose monitoring, and continue HS lantus. (7) Hearing loss Impression: Luckily, the patient was quite a good historian, and his hearing impairment is less obvious that if he were demented combined with the hearing loss. He was very good at asking for clarification, knew his medical conditions and could articulate very appropriately upon exam. The patient has been sleepy at times today, but hearing is unchanged. Plan: Take extra time with communication and use a communication board if needed. (8) Closed head injury Impression: The patient struck his head as he fell to the ground during his syncopal episode. Imaging in the ED shows no evidence of bleeding. There are no wounds or obvious bruising appreciated. The patient is somewhat sluggish today and continues to have a poor appetite, although this is likely fluid balance related. Plan: Monitor for worsening mental status, new vision changes, or headaches. Qualifiers: Encounter type: initial encounter Qualified Code(s): S09.90XA - Unspecified injury of head, initial encounter (9) Urinary tract infection Impression: The patient was tachycardic, mildly hypotensive, has an elevated WBC count of 11 , that is reduced this morning. A UA was obtained in the ED and preliminary culture results show gram positive organisms. He was started on IV Rocephin for an acute UTI. This may be a contributing factor for his syncope. Plan: Await urine culture results, maintain S/P cath, monitor vital signs, and monitor mental status. Qualifiers: Indwelling urinary catheter type: indwelling urethral catheter Encounter type: subsequent encounter (10) Lumbar back pain Impression: The patient complained of new low back pain since having his syncopal episode prior to admission. Imaging of his lumbar spine shows no acute fractures. The patient's mobility has been slowly declining and during his admission exam, he was having discomfort, was grimacing but denied treatment with pain medications when asked. Plan: IV dilaudid PRN, k-pad for comfort and PT/OT to continue daily.
[2017-10-16] MEDS ORDERED: BISACODYL 10 MG SUPP PR PRN (10:14)
[2017-10-16] MEDS: BISACODYL 5 MG TABLET PO SCH (10:35)
[2017-10-16] MEDS: METOPROLOL SUCCINATE 50 MG TABLET PO SCH ×2 (10:35→20:51)
[2017-10-16] MEDS: TORSEMIDE 20 MG TABLET PO SCH ×2 (10:36→20:53)
[2017-10-16] MEDS: METOCLOPRAMIDE 10 MG TABLET PO SCH ×3 (10:36→20:51)
[2017-10-16] MEDS: INSULIN ASPART 300 UNIT/3 ML PEN SUBQ SCH ×3 (11:25→20:52)
[2017-10-16] MEDS: INSULIN GLARGINE 300 UNIT/3 ML PEN SUBQ SCH ×2 (15:55→20:52)
--- NOTE | 2017-10-16 20:27 | Ultrasound Report ---
Reason: syncope and collapsse Procedure Date: 10/16/2017 Accession Number: [id number] / [id number] Procedure: US - Carotid Doppler Complete CPT Code: FULL RESULT: EXAM: BILATERAL CAROTID AND VERTEBRAL ARTERY DUPLEX DOPPLER ULTRASOUND: EXAM DATE: 10/16/2017 07:55 PM CLINICAL HISTORY: Syncope, collapse. COMPARISON: None. TECHNIQUE: Grayscale imaging, color Doppler, and duplex spectral Doppler were used to evaluate the carotid and vertebral arteries bilaterally. Static images were obtained. FINDINGS: Moderate plaque at the distal right common carotid extending into the carotid bulb. Mild plaque at the proximal right internal carotid artery. Mild atherosclerotic plaque within the left common carotid artery. Normal antegrade flow is present in bilateral vertebral arteries. VELOCITIES (cm/sec): Right CCA mid: PSV 66.7 cm/sec CCA dist: PSV 71.6 cm/sec ICA prox: PSV 62.4 cm/sec, EDV 40.3 cm/sec ICA mid: PSV 51.4 cm/sec, EDV 13.8 cm/sec ICA dist: PSV 61.1 cm/sec, EDV 14.5 cm/sec ECA: PSV 109.4 cm/sec Vert: PSV 62.4 cm/sec ICA/CCA: 0.77 Left CCA mid: PSV 75.7 cm/sec CCA dist: PSV 48.5 cm/sec ICA prox: PSV 53.3 cm/sec, EDV 27.1 cm/sec ICA mid: PSV 46.8 cm/sec, EDV 14.7 cm/sec ICA dist: PSV 64.3 cm/sec, EDV 18.4 cm/sec ECA: PSV 95.5 cm/sec Vert: PSV 51.4 cm/sec ICA/CCA: 0.61 ICA diameter stenosis: Right: <50% by velocity and <70% by NASCET criteria. Left: <50% by velocity and <70% by NASCET criteria. IMPRESSION: 1. 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 2. In the right carotid artery there are no elevated carotid artery velocities to suggest hemodynamically significant stenosis. 3. In the left carotid artery there are no elevated carotid artery velocities to suggest hemodynamically significant stenosis. 4. Normal antegrade flow is present in bilateral vertebral arteries. General Recommendations: Stenosis =50% ICA - Follow-up ultrasound 6-12 months Stenosis <50% ICA - High Risk Patient with plaque - Follow-up ultrasound 1-2 years Normal Study but High Risk Patient - Follow-up ultrasound 3-5 years Management recommendations and diagnostic criteria are based on current IAC endorsed standards in Carotid Artery Stenosis: Grayscale and Doppler Ultrasound Diagnosis. Validated velocity measurements with angiographic measurements and velocity criteria are extrapolated from diameter data as defined by the Society of Radiologists in Ultrasound Consensus Conference Radiology 2003; 229;340-346. RADIA
[2017-10-16] MEDS ORDERED: SODIUM CHLORIDE 0.9% 500 ML IV PRN (23:46)
[2017-10-17] MEDS: HYDROmorphone 0.5 MG/0.5 ML SYRINGE IVP PRN ×6 (01:10→20:40)
[2017-10-17] MEDS: SODIUM CHLORIDE FLUSH 0.9% 10 ML SYRINGE IVP SCH ×5 (01:37→16:26)
[2017-10-17] MEDS: PANTOPRAZOLE 80 MG in SODIUM CHLORIDE 0.9% 100ML 100 ML IV SCH (01:37)
[2017-10-17] MEDS ORDERED: METOPROLOL SUCCINATE 50 MG TABLET PO SCH (02:19)
[2017-10-17] MEDS: cefTRIAXone 1 GM in SODIUM CHLORIDE 0.9% MINIBAG 100 ML IV SCH (06:33)
[2017-10-17 06:35] LABS: ALBUMIN 2.7 g/dL (3.2-5.5); ALBUMIN/GLOBULIN RATIO 0.8 (1.0-2.2); ALKALINE PHOSPHATASE 58 IU/L (42-121); ALT ALANINE AMINOTRANSFERASE < 10 IU/L (10-60); AST ASPARTATE AMINOTRANSFERASE 13 IU/L (10-42); BILIRUBIN,TOTAL 0.6 mg/dL (0.2-1.0); BUN - BLOOD UREA NITROGEN 42 mg/dL (6-20); CALCIUM 8.7 mg/dL (8.5-10.3); CARBON DIOXIDE - CO2 27 mmol/L (21-32); CHLORIDE 102 mmol/L (101-111); CREATININE 1.7 mg/dL (0.6-1.2); CRP - C-REACTIVE PROTEIN 20.1 mg/dL (0-1.0); GFR - MDRD 38 (>89); GLUCOSE 206 mg/dL (70-100); SODIUM 139 mmol/L (135-145); TOTAL PROTEIN 5.9 g/dL (6.7-8.2)
[2017-10-17] MEDS: LEVOTHYROXINE 75 MCG TABLET PO SCH (06:35)
[2017-10-17] MEDS: METOCLOPRAMIDE 10 MG TABLET PO SCH ×4 (06:35→20:40)
[2017-10-17 06:40] LABS: BASOPHILS % (AUTO) 0.3 %; EOSINOPHILS # (AUTO) 0.3 10^3/uL (0.0-0.7); EOSINOPHILS % (AUTO) 2.7 %; HGB - HEMOGLOBIN 9.8 g/dL (14.0-18.0); LYMPHOCYTES # (AUTO) 2.2 10^3/uL (1.5-3.5); LYMPHOCYTES % (AUTO) 18.3 %; MEAN CORPUSCULAR HGB CONC 31.7 g/dL (32.0-36.0); MEAN CORPUSCULAR VOLUME 75.7 fL (80.0-94.0); MEAN PLATELET VOLUME 8.3 fL (7.4-11.4); MONOCYTES # (AUTO) 0.7 10^3/uL (0.0-1.0); MONOCYTES % (AUTO) 5.5 %; NEUTROPHILS # (AUTO) 8.9 10^3/uL (1.5-6.6); NEUTROPHILS % (AUTO) 73.2 %; PLT - PLATELET COUNT 228 10^3/uL (130-450); RED BLOOD COUNT 4.11 10^6/uL (4.70-6.10); RED CELL DISTRIBUTION WIDTH 18.9 % (12.0-15.0); WHITE BLOOD COUNT 12.1 x10^3/uL (4.8-10.8)
[2017-10-17] MEDS: BISACODYL 5 MG TABLET PO SCH (07:47)
[2017-10-17] MEDS: TORSEMIDE 20 MG TABLET PO SCH ×2 (07:48→20:40)
[2017-10-17] MEDS: INSULIN ASPART 300 UNIT/3 ML PEN SUBQ SCH ×4 (07:50→20:40)
[2017-10-17] MEDS ORDERED: POTASSIUM CHLORIDE 20 MEQ TABLET PO ONE (08:40)
[2017-10-17] MEDS ORDERED: FUROSEMIDE 40 MG/4 ML VIAL IVP ONE (08:40)
--- NOTE | 2017-10-17 08:44 | PROVIDER PROGRESS NOTE ---
Subjective - Prog Note Date Prog Note Date: 10/17/17 Prog Note Time: 08:42 - Subjective Pt reports feeling: No change Subjective: Quentin states that he still feels "under the weather". He denies fevers, chills , nausea, vomiting, or a worsening cough. He states that he continues to have low back pain and an increased abdominal girth. Current Medications - Current Medications Current Medications: Active Medications Bisacodyl (Dulcolax) 10 mg PO DAILY [facility] Last Admin: 10/17/17 07:47 Dose: 10 mg Bisacodyl (Dulcolax Supp) 10 mg ID DAILY PRN PRN Reason: Constipation Docusate Sodium (Colace 250mg Capsule) 250 - 500 mg PO DAILY [facility] Last Admin: 10/17/17 09:02 Dose: 500 mg Hydromorphone HCl (Dilaudid Inj Syringe) 0.5 mg IVP Q2H PRN PRN Reason: PAIN Last Admin: 10/17/17 09:01 Dose: 0.5 mg Promethazine HCl 12.5 mg/ (Sodium Chloride) 50.5 mls @ 100 mls/hr IV Q6H PRN PRN Reason: Nausea / Vomiting Last Infusion: 10/16/17 06:44 Dose: Infused Ceftriaxone Sodium 1 gm/ (Sodium Chloride) 100 mls @ 200 mls/hr IV DAILY@0600 [facility] Last Infusion: 10/17/17 07:12 Dose: Infused Insulin Aspart (Novolog) 1 - 9 unit SUBQ 0800,1200,1700,2100 [facility] PRN Reason: Protocol Last Admin: 10/17/17 07:50 Dose: 3 unit Insulin Glargine (Lantus Solostar) 10 unit SUBQ QPM [facility] Last Admin: 10/16/17 20:52 Dose: 10 unit Levothyroxine Sodium (Synthroid) 75 mcg PO QDAC [facility] Last Admin: 10/17/17 06:35 Dose: 75 mcg Metoclopramide HCl (Reglan) 10 mg PO ACHS [facility] Last Admin: 10/17/17 06:35 Dose: 10 mg Metoprolol Succinate (Toprol Xl) 50 mg PO BID [facility] Last Admin: 10/17/17 07:48 Dose: 50 mg Mineral Oil (Cavilon) 1 applic TOP PRN PRN PRN Reason: Skin Care Ondansetron HCl (Zofran Inj) 4 mg IVP Q4HR PRN PRN Reason: Nausea / Vomiting Last Admin: 10/16/17 01:47 Dose: 4 mg Polyethylene Glycol (Miralax) 17 gm PO DAILY PRN PRN Reason: Bowel Protocol Senna (Senokot) 8.6 - 17.2 mg PO DAILY [facility] Last Admin: 10/17/17 09:10 Dose: 17.2 mg Sodium Chloride (Normal Saline Flush 0.9%) 10 ml IVP PRN PRN PRN Reason: NEEDED PER PROVIDER ORDERS Last Admin: 10/16/17 12:58 Dose: 10 ml Sodium Chloride (Normal Saline Flush 0.9%) 10 ml IVP 0100,0900,1700 [facility] Last Admin: 10/17/17 09:09 Dose: 10 ml Torsemide (Torsemide) 20 mg PO BID [facility] Last Admin: 10/17/17 07:48 Dose: 20 mg Acetaminophen [Pain Reliever] 500 mg PO Q6H PRN 05/31/17 Clopidogrel [Plavix] 75 mg PO DAILY 05/31/17 Fludrocortisone [Florinef] 0.1 mg PO DAILY 05/31/17 Levothyroxine Sodium [Synthroid] 75 mcg PO DAILY 05/31/17 Metoprolol Succinate [Toprol Xl] 25 mg PO DAILY 05/31/17 Polyethylene Glycol 3350 [Glycolax] 17 gm PO DAILY 05/31/17 Tamsulosin [Flomax] 0.4 mg DAILY 05/31/17 Aspirin [Aspirin EC] 81 mg PO DAILY 10/15/17 Famotidine [Pepcid] 20 mg PO ONCE 10/15/17 Insulin Regular Human [NovoLIN R] 15 - 30 unit SUBQ ACHS 10/15/17 Psyllium [Metamucil] 1 pkt PO DAILY 10/15/17 Sennosides [Natural Laxative] 1 tab PO DAILY 10/15/17 Torsemide [Demadex] 20 mg PO BID 10/15/17 Insulin NPH Human Isophane [Novolin N] 60 unit SUBQ BID 10/16/17 Objective - Vital Signs/Intake & Output Reviewed Vital Signs: Yes Vital Signs: Vital Signs x48h Temp Pulse Resp BP Pulse Ox 10/17/17 08:00 36.4 C L 84 18 122/70 97 10/17/17 03:20 36.7 C 71 18 111/65 94 Intake & Output: Intake & Output 10/14/17 10/15/17 10/16/17 10/17/17 23:59 23:59 23:59 23:59 Intake Total 2341.167 350 Output Total 1650 525 Balance 691.167 -175 - Objective General Appearance: positive: No acute distress, Alert Eyes Bilateral: positive: Normal inspection, PERRL Eyes: OU Conjunctivae pale, OU Scleral icterus ENT: positive: ENT inspection nml, Pharynx nml, Pharyngeal erythema Neck: positive: Nml inspection, Thyroid nml, No JVD, Stiff neck (post surgical cervical spine-baseline) Respiratory: positive: Chest non-tender, Rhonchi Cardiovascular: positive: No gallop, Irregularly irregular, Systolic murmur, Decreased pulse(s) Peripheral Pulses: 1+ Radial (R), 1+ Radial (L) Abdomen: positive: Non-tender, Nml bowel sounds, Other (firm, rounded.) Back: positive: Nml inspection, CVA tenderness (R), CVA tenderness (L), Other ( low back discomfort related to fall.) Skin: positive: No rash, Warm, Dry, Pallor Extremities: positive: Non-tender, Pedal edema (mild, BLE) Neurologic/Psychiatric: positive: Oriented x3, CN's nml (2-12), Motor nml, Weakness, Sensory loss, Slurred/abnml speech (sluggishe speech at times), Depressed mood/affect Reflexes: Bicep (R): 2+, Bicep (L): 2+ - Lab Results Fish Bones: 10/17/17 05:32 10/17/17 05:32 Other Labs: Lab Results x24hrs 10/17/17 10/17/17 10/17/17 Range/Units 05:32 05:32 05:32 WBC (4.8-10.8) x10^3/uL RBC (4.70-6.10) 10^6/uL Hgb (14.0-18.0) g/dL Hct (42.0-52.0) % MCV (80.0-94.0) fL MCH (27.0-31.0) pg MCHC (32.0-36.0) g/dL RDW (12.0-15.0) % Plt Count (130-450) 10^3/uL MPV (7.4-11.4) fL Neut # (Auto) (1.5-6.6) 10^3/uL Lymph # (Auto) (1.5-3.5) 10^3/uL Russell # (Auto) (0.0-1.0) 10^3/uL Eos # (Auto) (0.0-0.7) 10^3/uL Baso # (Auto) (0.0-0.1) 10^3/uL Absolute Nucleated RBC x10^3/uL Nucleated RBC % /100WBC ESR 35 H (0-20) mm/Hr Sodium 139 (135-145) mmol/L Potassium 3.9 (3.5-5.0) mmol/L Chloride 102 (101-111) mmol/L Carbon Dioxide 27 (21-32) mmol/L Anion Gap 10.0 (6-13) BUN 42 H (6-20) mg/dL Creatinine 1.7 H (0.6-1.2) mg/dL Estimated GFR (MDRD) 38 L (>89) Glucose 206 H (70-100) mg/dL Calcium 8.7 (8.5-10.3) mg/dL Total Bilirubin 0.6 (0.2-1.0) mg/dL AST 13 (10-42) IU/L ALT < 10 L (10-60) IU/L Alkaline Phosphatase 58 (42-121) IU/L C-Reactive Protein 20.1 H (0-1.0) mg/dL B-Natriuretic Peptide 336 H (5-100) pg/mL Total Protein 5.9 L (6.7-8.2) g/dL Albumin 2.7 L (3.2-5.5) g/dL Globulin 3.2 (2.1-4.2) g/dL Albumin/Globulin Ratio 0.8 L (1.0-2.2) 10/17/17 Range/Units 05:32 WBC 12.1 H (4.8-10.8) x10^3/uL RBC 4.11 L (4.70-6.10) 10^6/uL Hgb 9.8 L (14.0-18.0) g/dL Hct 31.1 L (42.0-52.0) % MCV 75.7 L (80.0-94.0) fL MCH 24.0 L (27.0-31.0) pg MCHC 31.7 L (32.0-36.0) g/dL RDW 18.9 H (12.0-15.0) % Plt Count 228 (130-450) 10^3/uL MPV 8.3 (7.4-11.4) fL Neut # (Auto) 8.9 H (1.5-6.6) 10^3/uL Lymph # (Auto) 2.2 (1.5-3.5) 10^3/uL Russell # (Auto) 0.7 (0.0-1.0) 10^3/uL Eos # (Auto) 0.3 (0.0-0.7) 10^3/uL Baso # (Auto) 0.0 (0.0-0.1) 10^3/uL Absolute Nucleated RBC 0.00 x10^3/uL Nucleated RBC % 0.0 /100WBC ESR (0-20) mm/Hr Sodium (135-145) mmol/L Potassium (3.5-5.0) mmol/L Chloride (101-111) mmol/L Carbon Dioxide (21-32) mmol/L Anion Gap (6-13) BUN (6-20) mg/dL Creatinine (0.6-1.2) mg/dL Estimated GFR (MDRD) (>89) Glucose (70-100) mg/dL Calcium (8.5-10.3) mg/dL Total Bilirubin (0.2-1.0) mg/dL AST (10-42) IU/L ALT (10-60) IU/L Alkaline Phosphatase (42-121) IU/L C-Reactive Protein (0-1.0) mg/dL B-Natriuretic Peptide (5-100) pg/mL Total Protein (6.7-8.2) g/dL Albumin (3.2-5.5) g/dL Globulin (2.1-4.2) g/dL Albumin/Globulin Ratio (1.0-2.2) ABX Reporting Has patient been on IV antibiotics over the past 48 hours?: Yes Assessment/Plan - Problem List (1) Syncope and collapse Impression: The patient had an unwitnessed fall, but very soon response by his son. The patient admits to a complete loss of consciousness, and sustained a blow to his head and back. Imaging obtained in the ED show no acute fractures and the patient is neuro-intact upon exam. The patient admits to about one week ago at 0330AM being woken up by an internal shock from his ICD ([employer]). He talked about being late for his device check up. Attempts were made to get a current reading from the ED [employer] device, but this was unable to be appropriately downloaded as this device is thought to be lacking the most current update as per phone rep. Preliminary conclusion to this syncope remain with the following possibilities; (1) hypoglycemia, (2) V-tach, or (3) acute illness leading to low fluid, in turn restricting blood flow to his brain. The last conclusion is the most likely. The patient has worsening heart function, and was found to be tachycardic. Carotid dopplers are negative for concerning stenosis. Preliminary echo results show a reduced EF estimated at 20-25%, with severe LV systolic impairment. Severe increase in the LA volume index. Mitral regurg, mild tricuspid regurg and an RVSP at rest of 31 mmHg. Plan: Continue fall precautions, treat infection, and monitor. (2) Abdominal pain Impression: The patient was having abdominal discomfort, and had suspected blood in his emesis during his first night of stay, so an abdominal x-ray was obtained and showed a large amount of stool in the colon. An NG tube was placed overnight, and discontinued the next AM. The patient continues to have a very poor appetite since that time and states that he feels "bloated" similar to when he is fluid overloaded. Plan: Continue to monitor and give laxatives, stool softeners, and give PRNs enema/suppository. (3) Fall Impression: The patient admits to similar episodes in his remote past, but nothing recent until today prior to arrival to the ED via EMS. The patient had a very brief warning which was a feeling of dizziness, mild diaphoresis, and mild shortness of breath. The next memory is when he wakes up on the floor after a fall and prior to the episodes, the patient had feeling of dizziness. Physical therapy worked with the patient, and reports continued back discomfort, but the patient was very willing to participate. Plan: Continue fall precautions, telemetry. Qualifiers: Encounter type: subsequent encounter Qualified Code(s): W19.XXXD - Unspecified fall, subsequent encounter (4) CHF (congestive heart failure) Impression: The patient is prescribed torsemide BID at home, metoprolol succinate, and an ARB for medical management of his CHF. Preliminary echo results show overall poor heart function and an estimated EF of only ~20%, severely impaired LV function. A BNP was elevated at 277 upon admission and this morning continues to trend upward and is 336 today . He is slightly hypoxic and is wearing 2L supplemental oxygen upon exam this morning. He had at least 2 negative troponins, FLAKO on CKD, and chronic, BLE with and increased abdominal girth. I have increased his metoprolol succinate to 50 mg PO BID, and he is having favorable results with improved heart rates of 70-80's. Since he has a pacemaker, I can give high does of the beta jamir with the goal being ~200mg PO daily to gain the CHF medical management benefits. Since he continues to have symptoms of fluid overload, increasing BNP, I am adding a one time dose of lasix IV, potassium of 20 mEQ PO and noticed that he still had a fluid order, so this has been stopped. Plan: Continue torsemide PO, give a one time dose of lasix IV, Monitor BNP, labs, and respiratory status. (5) BPH (benign prostatic hyperplasia) Impression: The patient remains with a chronic S/P cath and takes Flomax daily, which was on hold in light of the patient's FLAKO. The catheter was changed about 2-3 prior to admission as per patient. A urine culture that was obtained in the ED is pending. Plan: Continue care, chronic thibodeaux via S/P cath. Qualifiers: Lower urinary tract symptom presence: unspecified whether lower urinary tract symptoms present Qualified Code(s): N40.0 - Benign prostatic hyperplasia without lower urinary tract symptoms (6) Diabetes mellitus type 2 in nonobese Impression: The patient states that he was first diagnosed with DM in 1983. 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 A HgA1C was 10.8. He is scheduled BID fast acting Humilin insulin at home, which should be replaced with a more reliable, and steady Lantus upon discharge. Early AM sugars are improving and this morning it was 195 as compared to 322, 24 hours ago. We will continue the HS Lantus, moderate scale SSI, and encourage PO intake. Plan: Continue with AC/HS blood glucose monitoring, and continue HS lantus. (7) Hearing loss Impression: Although the patient has mildly sluggish speech at times, he remains a good historian. He was very good at asking for clarification, knows his medical conditions and could articulate very appropriately upon exam. Plan: Take extra time with communication and use a communication board if needed. (8) Closed head injury Impression: The patient struck his head as he fell to the ground during his syncopal episode. Imaging in the ED shows no evidence of bleeding. There are no wounds or obvious bruising appreciated. The patient is very alert upon exam, and shows no signs of confusion or changes in mental status. He denies headaches. Plan: Monitor for worsening mental status, new vision changes, or headaches. Qualifiers: Encounter type: initial encounter Qualified Code(s): S09.90XA - Unspecified injury of head, initial encounter (9) Urinary tract infection Impression: The patient was tachycardic, mildly hypotensive, has an elevated WBC count that is increased from 11 to 12.1 today. A UA was obtained in the ED and preliminary culture results show gram positive organisms and are still pending this morning. He was started on IV Rocephin for an acute UTI, which continues. This infection may be a contributing factor for his syncope. Plan: Await urine culture results, maintain S/P cath, monitor vital signs, and monitor mental status. Qualifiers: Indwelling urinary catheter type: indwelling urethral catheter Encounter type: subsequent encounter (10) Lumbar back pain Impression: The patient complained of new low back pain since having his syncopal episode prior to admission and this remains to be his primary complaint this morning. Imaging of his lumbar spine shows no acute fractures. The patient's mobility has been slowly declining and physical therapy began their evaluations yesterday. Plan: IV dilaudid PRN, k-pad for comfort and PT/OT to continue daily.
[2017-10-17] MEDS: DOCUSATE SODIUM 250 MG CAPSULE PO SCH (09:02)
[2017-10-17] MEDS: SENNA 8.6 MG TABLET PO SCH (09:10)
[2017-10-17] MEDS: ONDANSETRON 4 MG/2 ML VIAL IVP PRN (09:22)
[2017-10-17] MEDS: FLUDROCORTISONE 0.1 MG TABLET PO SCH (10:47)
[2017-10-17] MEDS: POLYETHYLENE GLYCOL 3350 17 GM PACKET PO PRN (11:09)
[2017-10-17] MEDS: INSULIN GLARGINE 300 UNIT/3 ML PEN SUBQ SCH (20:40)
[2017-10-17] MEDS: METOPROLOL SUCCINATE 50 MG TABLET PO SCH (20:41)
[2017-10-17] MEDS: SODIUM CHLORIDE FLUSH 0.9% 10 ML SYRINGE IVP PRN (23:58)
[2017-10-18] MEDS: SODIUM CHLORIDE FLUSH 0.9% 10 ML SYRINGE IVP SCH ×4 (00:01→23:57)
[2017-10-18] MEDS: HYDROmorphone 0.5 MG/0.5 ML SYRINGE IVP PRN ×2 (00:09→13:21)
[2017-10-18] MEDS: SODIUM CHLORIDE FLUSH 0.9% 10 ML SYRINGE IVP PRN ×5 (00:11→23:57)
[2017-10-18 06:05] LABS: BASOPHILS % (AUTO) 0.4 %; EOSINOPHILS # (AUTO) 0.4 10^3/uL (0.0-0.7); EOSINOPHILS % (AUTO) 4.5 %; HGB - HEMOGLOBIN 10.3 g/dL (14.0-18.0); LYMPHOCYTES # (AUTO) 1.5 10^3/uL (1.5-3.5); MEAN CORPUSCULAR HEMOGLOBIN 24.2 pg (27.0-31.0); MEAN CORPUSCULAR HGB CONC 32.1 g/dL (32.0-36.0); MEAN CORPUSCULAR VOLUME 75.4 fL (80.0-94.0); MEAN PLATELET VOLUME 8.2 fL (7.4-11.4); MONOCYTES # (AUTO) 0.6 10^3/uL (0.0-1.0); MONOCYTES % (AUTO) 6.9 %; NEUTROPHILS # (AUTO) 5.5 10^3/uL (1.5-6.6); NEUTROPHILS % (AUTO) 69.2 %; PLT - PLATELET COUNT 220 10^3/uL (130-450); RED BLOOD COUNT 4.27 10^6/uL (4.70-6.10); RED CELL DISTRIBUTION WIDTH 19.1 % (12.0-15.0)
[2017-10-18 06:14] LABS: ALBUMIN 2.7 g/dL (3.2-5.5); ALBUMIN/GLOBULIN RATIO 0.8 (1.0-2.2); ALKALINE PHOSPHATASE 59 IU/L (42-121); ALT ALANINE AMINOTRANSFERASE < 10 IU/L (10-60); AST ASPARTATE AMINOTRANSFERASE 12 IU/L (10-42); BILIRUBIN,TOTAL 0.9 mg/dL (0.2-1.0); BUN - BLOOD UREA NITROGEN 45 mg/dL (6-20); CALCIUM 8.6 mg/dL (8.5-10.3); CARBON DIOXIDE - CO2 27 mmol/L (21-32); CHLORIDE 98 mmol/L (101-111); CREATININE 1.9 mg/dL (0.6-1.2); GFR - MDRD 34 (>89); GLUCOSE 228 mg/dL (70-100); SODIUM 135 mmol/L (135-145); TOTAL PROTEIN 6.3 g/dL (6.7-8.2)
[2017-10-18] MEDS: LEVOTHYROXINE 75 MCG TABLET PO SCH (06:14)
[2017-10-18] MEDS: cefTRIAXone 1 GM in SODIUM CHLORIDE 0.9% MINIBAG 100 ML IV SCH (06:20)
[2017-10-18] MEDS: FLUDROCORTISONE 0.1 MG TABLET PO SCH (08:17)
[2017-10-18] MEDS: BISACODYL 5 MG TABLET PO SCH (08:18)
[2017-10-18] MEDS: METOCLOPRAMIDE 10 MG TABLET PO SCH ×4 (08:18→21:28)
[2017-10-18] MEDS: DOCUSATE SODIUM 250 MG CAPSULE PO SCH (08:18)
[2017-10-18] MEDS: SENNA 8.6 MG TABLET PO SCH (08:21)
[2017-10-18] MEDS: METOPROLOL SUCCINATE 50 MG TABLET PO SCH ×2 (08:21→21:28)
[2017-10-18] MEDS: INSULIN ASPART 300 UNIT/3 ML PEN SUBQ SCH ×4 (08:31→21:30)
[2017-10-18] MEDS: TORSEMIDE 20 MG TABLET PO SCH ×2 (08:39→21:29)
[2017-10-18] MEDS: CYCLOBENZAPRINE 10 MG TABLET PO PRN ×3 (10:54→22:37)
[2017-10-18] MEDS ORDERED: POTASSIUM CHLORIDE 20 MEQ TABLET PO ONE (11:53)
--- NOTE | 2017-10-18 11:56 | PROVIDER PROGRESS NOTE ---
Subjective - Prog Note Date Prog Note Date: 10/18/17 Prog Note Time: 11:56 - Subjective Pt reports feeling: Improved Subjective: Quentin continues to make little improvement and complains of ongoing low back pain. He denies any new symptoms. Current Medications - Current Medications Current Medications: Active Medications Acetaminophen (Tylenol) 650 mg PO Q4HR PRN PRN Reason: Pain or Fever > 38C (100.4F) Last Admin: 10/18/17 22:37 Dose: 650 mg Hydrocodone Bitart/Acetaminophen ([place] 5/325) 1 tab PO Q4HR PRN PRN Reason: PAIN Last Admin: 10/19/17 06:17 Dose: 1 tab Bisacodyl (Dulcolax) 10 mg PO DAILY ОЛЕГ Last Admin: 10/18/17 08:18 Dose: Not Given Bisacodyl (Dulcolax Supp) 10 mg [place] DAILY PRN PRN Reason: Constipation Last Admin: 10/19/17 02:25 Dose: 10 mg Cyclobenzaprine HCl (Flexeril) 5 mg PO TID PRN PRN Reason: Spasms Last Admin: 10/19/17 05:05 Dose: 5 mg Docusate Sodium (Colace 250mg Capsule) 250 - 500 mg PO DAILY [facility] Last Admin: 10/18/17 08:18 Dose: Not Given Fludrocortisone Acetate (Florinef) 0.1 mg PO DAILY [facility] Last Admin: 10/18/17 08:17 Dose: 0.1 mg Promethazine HCl 12.5 mg/ (Sodium Chloride) 50.5 mls @ 100 mls/hr IV Q6H PRN PRN Reason: Nausea / Vomiting Last Infusion: 10/16/17 06:44 Dose: Infused Ampicillin Sodium 1 gm/ Sodium (Chloride) 100 mls @ 200 mls/hr IV Q6H [facility] Last Infusion: 10/19/17 03:17 Dose: Infused Insulin Aspart (Novolog) 2 - 10 unit SUBQ 0800,1200,1700,2100 ОЛЕГ PRN Reason: Protocol Last Admin: 10/18/17 21:30 Dose: 8 unit Insulin Glargine (Lantus Solostar) 10 unit SUBQ QPM ОЛЕГ Last Admin: 10/18/17 21:31 Dose: 10 unit Ketorolac Tromethamine (Toradol Inj (15mg)) 15 mg IVP ONCE [facility] Stop: 10/23/17 23:44 Last Admin: 10/18/17 23:57 Dose: 15 mg Levothyroxine Sodium (Synthroid) 75 mcg PO QDAC [facility] Last Admin: 10/19/17 06:16 Dose: 75 mcg Metoclopramide HCl (Reglan) 10 mg PO ACHS [facility] Last Admin: 10/19/17 06:16 Dose: 10 mg Metoprolol Succinate (Toprol Xl) 25 mg PO BID [facility] Last Admin: 10/18/17 21:28 Dose: 25 mg Mineral Oil (Cavilon) 1 applic TOP PRN PRN PRN Reason: Skin Care Morphine Sulfate (Morphine) 2 mg IVP Q2H PRN PRN Reason: PAIN Multivitamins/Minerals (Theragran M) 1 tab PO DAILYWM [facility] Last Admin: 10/18/17 12:46 Dose: 1 tab Ondansetron HCl (Zofran Inj) 4 mg IVP Q4HR PRN PRN Reason: Nausea / Vomiting Last Admin: 10/17/17 09:22 Dose: 4 mg Polyethylene Glycol (Miralax) 17 gm PO DAILY PRN PRN Reason: Bowel Protocol Last Admin: 10/17/17 11:09 Dose: 17 gm Senna (Senokot) 8.6 - 17.2 mg PO DAILY [facility] Last Admin: 10/18/17 08:21 Dose: Not Given Sodium Chloride (Normal Saline Flush 0.9%) 10 ml IVP PRN PRN PRN Reason: NEEDED PER PROVIDER ORDERS Last Admin: 10/18/17 23:57 Dose: 10 ml Sodium Chloride (Normal Saline Flush 0.9%) 10 ml IVP 0100,0900,1700 [facility] Last Admin: 10/18/17 23:57 Dose: 10 ml Torsemide (Torsemide) 20 mg PO BID [facility] Last Admin: 10/18/17 21:29 Dose: 20 mg Acetaminophen [Pain Reliever] 500 mg PO Q6H PRN 05/31/17 Clopidogrel [Plavix] 75 mg PO DAILY 05/31/17 Fludrocortisone [Florinef] 0.1 mg PO DAILY 05/31/17 Levothyroxine Sodium [Synthroid] 75 mcg PO DAILY 05/31/17 Metoprolol Succinate [Toprol Xl] 25 mg PO DAILY 05/31/17 Polyethylene Glycol 3350 [Glycolax] 17 gm PO DAILY 05/31/17 Tamsulosin [Flomax] 0.4 mg DAILY 05/31/17 Aspirin [Aspirin EC] 81 mg PO DAILY 10/15/17 Famotidine [Pepcid] 20 mg PO ONCE 10/15/17 Insulin Regular Human [NovoLIN R] 15 - 30 unit SUBQ ACHS 10/15/17 Psyllium [Metamucil] 1 pkt PO DAILY 10/15/17 Sennosides [Natural Laxative] 1 tab PO DAILY 10/15/17 Torsemide [Demadex] 20 mg PO BID 10/15/17 Insulin NPH Human Isophane [Novolin N] 60 unit SUBQ BID 10/16/17 Objective - Vital Signs/Intake & Output Reviewed Vital Signs: Yes Vital Signs: Vital Signs x48h Temp Pulse Resp BP Pulse Ox 10/18/17 08:00 36.5 C 74 18 135/61 H 98 10/18/17 05:19 36.6 C 66 18 115/59 L 98 Intake & Output: Intake & Output 10/15/17 10/16/17 10/17/17 10/18/17 23:59 23:59 23:59 23:59 Intake Total 2341.167 1945 360 Output Total 1650 2125 2625 Balance 691.671 -886 -2931 - Objective General Appearance: positive: No acute distress, Alert Eyes Bilateral: positive: Normal inspection, PERRL Eyes: OU Conjunctivae pale ENT: positive: ENT inspection nml, Pharynx nml, Pharyngeal erythema, Dry mucous membranes Neck: positive: Nml inspection, Thyroid nml, No JVD, Trachea midline Respiratory: positive: Chest non-tender, No respiratory distress, Other ( scattered crackles in low lobes.). negative: Wheezes Cardiovascular: positive: No gallop, Irregularly irregular, Systolic murmur, Decreased pulse(s) Peripheral Pulses: 1+ Radial (R), 1+ Radial (L) Abdomen: positive: Non-tender, Nml bowel sounds, Other (rounded, soft) Back: positive: Nml inspection Skin: positive: No rash, Warm, Dry, Other (pale) Extremities: positive: Non-tender, Full ROM, Pedal edema (mild, mainly edema is in his abdomen.), Joint swelling Neurologic/Psychiatric: positive: Oriented x3, CN's nml (2-12), Motor nml, Weakness, Sensory loss, Depressed mood/affect Reflexes: Bicep (R): 2+, Bicep (L): 2+ - Lab Results Fish Bones: 10/18/17 05:28 10/18/17 05:28 Other Labs: Lab Results x24hrs 10/18/17 10/18/17 10/18/17 Range/Units 05:28 05:28 05:28 WBC 8.0 (4.8-10.8) x10^3/uL RBC 4.27 L (4.70-6.10) 10^6/uL Hgb 10.3 L (14.0-18.0) g/dL Hct 32.2 L (42.0-52.0) % MCV 75.4 L (80.0-94.0) fL MCH 24.2 L (27.0-31.0) pg MCHC 32.1 (32.0-36.0) g/dL RDW 19.1 H (12.0-15.0) % Plt Count 220 (130-450) 10^3/uL MPV 8.2 (7.4-11.4) fL Neut # (Auto) 5.5 (1.5-6.6) 10^3/uL Lymph # (Auto) 1.5 (1.5-3.5) 10^3/uL [place] # (Auto) 0.6 (0.0-1.0) 10^3/uL Eos # (Auto) 0.4 (0.0-0.7) 10^3/uL Baso # (Auto) 0.0 (0.0-0.1) 10^3/uL Absolute Nucleated RBC 0.00 x10^3/uL Nucleated RBC % 0.0 /100WBC Sodium 135 (135-145) mmol/L Potassium 3.1 L (3.5-5.0) mmol/L Chloride 98 L (101-111) mmol/L Carbon Dioxide 27 (21-32) mmol/L Anion Gap 10.0 (6-13) BUN 45 H (6-20) mg/dL Creatinine 1.9 H (0.6-1.2) mg/dL Estimated GFR (MDRD) 34 L (>89) Glucose 228 H (70-100) mg/dL Calcium 8.6 (8.5-10.3) mg/dL Total Bilirubin 0.9 (0.2-1.0) mg/dL AST 12 (10-42) IU/L ALT < 10 L (10-60) IU/L Alkaline Phosphatase 59 (42-121) IU/L B-Natriuretic Peptide 395 H (5-100) pg/mL Total Protein 6.3 L (6.7-8.2) g/dL Albumin 2.7 L (3.2-5.5) g/dL Globulin 3.6 (2.1-4.2) g/dL Albumin/Globulin Ratio 0.8 L (1.0-2.2) - Diagnostic Imaging Diagnostic Imaging Results: positive: Final report reviewed ABX Reporting Has patient been on IV antibiotics over the past 48 hours?: Yes Assessment/Plan - Problem List (1) Syncope and collapse Impression: The patient had an unwitnessed fall, but very soon response by his son. The patient admits to a complete loss of consciousness, and sustained a blow to his head and back. Imaging obtained in the ED show no acute fractures and the patient is neuro-intact upon exam. The patient admits to about one week ago at 0330AM being woken up by an internal shock from his ICD ([employer]). He talked about being late for his device check up. Attempts were made to get a current reading from the ED [employer] device, but this was unable to be appropriately downloaded as this device is thought to be lacking the most current update as per phone rep. The patient has worsening heart function, and was found to be tachycardic upon admission. It has been concluded that the cause of his syncope was mild dehydration due to acute infection. Carotid dopplers are negative for concerning stenosis. Echocardiogram results show a reduced EF estimated at 20-25%, with severe LV systolic impairment. Severe increase in the LA volume index. Mitral regurg, mild tricuspid regurg and an RVSP at rest of 31 mmHg. Plan: Continue fall precautions, treat infection, and monitor. (2) Abdominal pain Impression: The patient was having abdominal discomfort, and had suspected blood in his emesis during his first night of stay, so an abdominal x-ray was obtained and showed a large amount of stool in the colon. An NG tube was placed overnight, and discontinued the next AM. The patient's appetite is only mildly improved since admission. He was started on Reglan, which made no improvement of his symptoms. Plan: Continue to monitor and give laxatives, stool softeners, and give PRNs enema/suppository. (3) Fall Impression: The patient admits to similar episodes in his remote past, but nothing recent until today prior to arrival to the ED via EMS. The patient had a very brief warning which was a feeling of dizziness, mild diaphoresis, and mild shortness of breath. The next memory is when he wakes up on the floor after a fall and prior to the episodes, the patient had feeling of dizziness. Physical therapy has been seeing the patient daily. Plan: Continue fall precautions and daily PT. Qualifiers: Encounter type: subsequent encounter Qualified Code(s): W19.XXXD - Unspecified fall, subsequent encounter (4) CHF (congestive heart failure) Impression: The patient is prescribed torsemide BID at home, metoprolol succinate, and an ARB for medical management of his CHF. Echocardiogram results show overall poor heart function and an estimated EF of only ~20%, severely impaired LV function. Today the patient has trending BNPs that continue to show fluid overload with a value of 395 today. He continues to wear supplemental oxygen at 2L. He continues on an increased metoprolol succinate dose with favorable blood pressure and heart rates. He was given a one time dose of potassium today in response to the IV lasix about 48 hours ago. Plan: Continue torsemide, metoprolol, PO, monitor daily BNP, labs, and respiratory status. (5) BPH (benign prostatic hyperplasia) Impression: The patient remains with a chronic S/P cath and takes Flomax daily, which was on hold in light of the patient's FLAKO. The catheter was changed about 2-3 prior to admission as per patient. A urine culture grew out enterococcus faecalis and antibiotics were adjusted. Plan: Continue care, chronic thibodeaux via S/P cath. Qualifiers: Lower urinary tract symptom presence: unspecified whether lower urinary tract symptoms present Qualified Code(s): N40.0 - Benign prostatic hyperplasia without lower urinary tract symptoms (6) Diabetes mellitus type 2 in nonobese Impression: The patient states that he was first diagnosed with DM in 1983. 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 A HgA1C was 10.8. Early AM sugars are elevated this morning. We will continue the HS Lantus, moderate scale SSI, and encourage PO intake. To simplify, the patient will likely be adjusted to Lantus daily upon discharge. I expect an improvement in overall blood glucose as his infection is being treated accurately. Plan: Continue with AC/HS blood glucose monitoring, SSI, and continue HS lantus. (7) Hearing loss Impression: Although the patient has mildly sluggish speech at times, he remains a good historian. He was very good at asking for clarification, knows his medical conditions and could articulate very appropriately upon exam. Plan: Take extra time with communication and use a communication board if needed. (8) Closed head injury Impression: The patient struck his head as he fell to the ground during his syncopal episode. Imaging in the ED shows no evidence of bleeding. There have been no wounds or obvious bruising appreciated. The patient is very alert upon exam, and shows no signs of confusion or changes in mental status. He denies headaches. Plan: Monitor for worsening mental status, new vision changes, or headaches. Qualifiers: Encounter type: initial encounter Qualified Code(s): S09.90XA - Unspecified injury of head, initial encounter (9) Urinary tract infection Impression: The patient was tachycardic, mildly hypotensive, has an elevated WBC count that is increased from 11 to 12.1 today. A UA was obtained in the ED and cultures grew out enterococcus faecalis, so antibiotics were changed to Ampicillin. This infection is thought to have been the primary cause of his syncope. Plan: Maintain S/P cath, continue Ampicillin, monitor vital signs, and monitor mental status. Qualifiers: Indwelling urinary catheter type: indwelling urethral catheter Encounter type: subsequent encounter (10) Lumbar back pain Impression: The patient complained of new low back pain since having his syncopal episode prior to admission and this remains to be his primary complaint most days. Imaging of his lumbar spine shows no acute fractures. The patient's mobility has been slowly declining and physical therapy has been seeing the patient daily. Plan: IV dilaudid PRN, k-pad for comfort and PT/OT to continue daily.
[2017-10-18] MEDS ORDERED: AMPICILLIN 250 MG CAPSULE PO SCH (12:00)
[2017-10-18] MEDS: MULTIVITAMIN W/MINERALS TABLET PO SCH (12:46)
[2017-10-18] MEDS: AMPICILLIN 1 GM in SODIUM CHLORIDE 0.9% MINIBAG 100 ML IV SCH ×2 (14:32→21:29)
[2017-10-18] MEDS: HYDROcod/ACETAM 5/325 MG TABLET PO PRN ×2 (16:18→21:29)
[2017-10-18] MEDS: INSULIN GLARGINE 300 UNIT/3 ML PEN SUBQ SCH (21:31)
[2017-10-18] MEDS: ACETAMINOPHEN 325 MG TABLET PO PRN (22:37)
[2017-10-18] MEDS ORDERED: MORPHINE 2 MG/ML SYRINGE IVP PRN (23:41)
[2017-10-18] MEDS: KETOROLAC 15 MG/ML VIAL IVP SCH (23:57)
[2017-10-19] MEDS: HYDROcod/ACETAM 5/325 MG TABLET PO PRN ×4 (02:16→21:00)
[2017-10-19] MEDS: AMPICILLIN 1 GM in SODIUM CHLORIDE 0.9% MINIBAG 100 ML IV SCH ×4 (02:17→21:04)
[2017-10-19] MEDS: CYCLOBENZAPRINE 10 MG TABLET PO PRN ×2 (05:05→16:39)
--- NOTE | 2017-10-19 05:22 | CT Report ---
Reason: ? hip/pelvic fracture Procedure Date: 10/19/2017 Accession Number: [id number] / [id number] Procedure: CT - Pelvis W/O CPT Code: FULL RESULT: EXAM: CT BONY PELVIS WITHOUT CONTRAST EXAM DATE: 10/19/2017 05:09 AM. CLINICAL HISTORY: Pain, fall COMPARISON: None. TECHNIQUE: Thin-section axial images were acquired of the pelvis without contrast. Post-processing: Coronal and sagittal reformats. Other: None. In accordance with CT protocol optimization, one or more of the following dose reduction techniques were utilized for this exam: automated exposure control, adjustment of mA and/or KV based on patient size, or use of iterative reconstructive technique. FINDINGS: Bones: No fracture or bone lesion. Sacroiliac Joints: Fusion. Symphysis Pubis: Unremarkable. Right Hip: Mild osteoarthritis. No evidence of fracture. Left Hip: Mild osteoarthritis. No evidence of fracture. Musculature: Normal. No fatty atrophy. Pelvic Cavity: Suprapubic bladder catheter in place. Other: No lymphadenopathy. No free air or free fluid. The other visualized soft tissues are unremarkable. IMPRESSION: Degenerative changes. No evidence of acute fracture. [facility]
[2017-10-19] MEDS: LEVOTHYROXINE 75 MCG TABLET PO SCH (06:16)
[2017-10-19] MEDS: METOCLOPRAMIDE 10 MG TABLET PO SCH ×4 (06:16→20:57)
[2017-10-19 08:10] LABS: BASOPHILS % (AUTO) 0.4 %; EOSINOPHILS # (AUTO) 0.2 10^3/uL (0.0-0.7); EOSINOPHILS % (AUTO) 2.9 %; HGB - HEMOGLOBIN 9.7 g/dL (14.0-18.0); LYMPHOCYTES # (AUTO) 2.2 10^3/uL (1.5-3.5); LYMPHOCYTES % (AUTO) 29.6 %; MEAN CORPUSCULAR HEMOGLOBIN 24.3 pg (27.0-31.0); MEAN CORPUSCULAR HGB CONC 32.3 g/dL (32.0-36.0); MEAN CORPUSCULAR VOLUME 75.1 fL (80.0-94.0); MEAN PLATELET VOLUME 8.3 fL (7.4-11.4); MONOCYTES # (AUTO) 0.6 10^3/uL (0.0-1.0); MONOCYTES % (AUTO) 8.8 %; NEUTROPHILS # (AUTO) 4.2 10^3/uL (1.5-6.6); NEUTROPHILS % (AUTO) 58.3 %; PLT - PLATELET COUNT 209 10^3/uL (130-450); RED BLOOD COUNT 4.01 10^6/uL (4.70-6.10); RED CELL DISTRIBUTION WIDTH 18.1 % (12.0-15.0); WHITE BLOOD COUNT 7.3 x10^3/uL (4.8-10.8)
[2017-10-19 08:23] LABS: ALBUMIN 2.7 g/dL (3.2-5.5); ALBUMIN/GLOBULIN RATIO 0.8 (1.0-2.2); ALKALINE PHOSPHATASE 60 IU/L (42-121); ALT ALANINE AMINOTRANSFERASE < 10 IU/L (10-60); AST ASPARTATE AMINOTRANSFERASE 12 IU/L (10-42); BILIRUBIN,TOTAL 0.9 mg/dL (0.2-1.0); BUN - BLOOD UREA NITROGEN 45 mg/dL (6-20); CALCIUM 8.5 mg/dL (8.5-10.3); CARBON DIOXIDE - CO2 29 mmol/L (21-32); CHLORIDE 95 mmol/L (101-111); CREATININE 1.8 mg/dL (0.6-1.2); GFR - MDRD 36 (>89); GLUCOSE 233 mg/dL (70-100); SODIUM 133 mmol/L (135-145)
[2017-10-19] MEDS: SODIUM CHLORIDE FLUSH 0.9% 10 ML SYRINGE IVP SCH ×2 (09:01→16:53)
[2017-10-19] MEDS: METOPROLOL SUCCINATE 50 MG TABLET PO SCH ×2 (09:02→20:57)
[2017-10-19] MEDS: POLYETHYLENE GLYCOL 3350 17 GM PACKET PO PRN (09:05)
[2017-10-19] MEDS: BISACODYL 5 MG TABLET PO SCH (09:06)
[2017-10-19] MEDS: TORSEMIDE 20 MG TABLET PO SCH ×2 (09:07→21:07)
[2017-10-19] MEDS: FLUDROCORTISONE 0.1 MG TABLET PO SCH (09:07)
[2017-10-19] MEDS: MULTIVITAMIN W/MINERALS TABLET PO SCH (09:08)
[2017-10-19] MEDS: DOCUSATE SODIUM 250 MG CAPSULE PO SCH (09:08)
[2017-10-19] MEDS: SENNA 8.6 MG TABLET PO SCH (09:08)
[2017-10-19] MEDS: INSULIN ASPART 300 UNIT/3 ML PEN SUBQ SCH ×4 (09:10→21:05)
--- NOTE | 2017-10-19 11:38 | DISCHARGE SUMMARY ---
Discharge Summary Admit Date: 10/15/17 Discharge Date: 10/20/17 Discharging Provider: KRYS Pop Primary Care Provider: Reinaldo Paulino Code Status: Do Not Attempt Resuscitation Condition at Discharge: Good Discharge Disposition: 03 SNF DC/Xfer Discharge [facility] Name: [facility] - DIAGNOSES Admission Diagnoses: Syncope and collapse (R55) Unspecified fall, initial encounter (W19.XXXA) Heart failure, unspecified (I50.9) Enlarged prostate without lower urinary tract symptoms (N40.0) Type 2 diabetes mellitus without complications (E11.9) Unspecified hearing loss, unspecified ear (H91.90) Unspecified injury of head, initial encounter (S09.90XA) Urinary tract infection, site not specified (N39.0) Low back pain (M54.5) Discharge Diagnoses with Status of Each Condition: Syncope and collapse (R55) improved, stable. Unspecified fall, initial encounter (W19.XXXA) chronic, stable. Heart failure, unspecified (I50.9) chronic, stable. Enlarged prostate without lower urinary tract symptoms (N40.0) chronic, stable. Unspecified hearing loss, unspecified ear (H91.90) chronic, stable. Type 2 diabetes mellitus without complications (E11.9) chronic, stable. Unspecified injury of head, initial encounter (S09.90XA) chronic, stable. Urinary tract infection, site not specified (N39.0) new on this admission, stable with oral medications to continue. Low back pain (M54.5) chronic, stable. Unspecified abdominal pain (R10.9)chronic, stable. 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 The patient admits to similar syncopal episodes in his remote past, but nothing recent until today prior to arrival to the ED via EMS. The patient had a very brief warning which was a feeling of dizziness, mild diaphoresis, and mild shortness of breath. The next memory is when he wakes up on the floor after a fall. The patient had feeling of dizziness, for most of this morning. He struggled to get to an eye appointment, and after arriving at the eye doctor's office, came back home as he was too dizzy to sit in their exam chair. He traveled home with his son and was transferring out of the car, and admits to a complete loss of consciousness , in which he sustained a blow to his head and back. Imaging obtained in the ED show no acute fractures and the patient is neuro-intact upon exam with no obvious superficial injuries. The patient admits to about one week ago at 0330AM being woken up by an internal shock from his ICD ([employer]). He talked about being late for his device check up. He also states that prior to his fall, his blood sugar reading were low at 80, and he drank orange juice. Labs show mild leukocytosis with an elevated WBC count of 11.5, anemia with a hemoglobin of 11.3, and a hematocrit of 35.2, a low MCV of 74.9, an elevated BUN of 47, an elevated creatinine of 1.7, a reduced GFR of 38, and an elevated glucose of 187. The patient was found to have a normal troponin, and an elevated BNP of 227. A urine sample was obtained which shows a likely UTI with high WBCs, many bacteria, yeast present, and a culture is indicated and pending. He will be admitted to observation for further evaluation of this syncopal episode, started on antibiotics for a suspected UTI, records from his device clinic will be requested. - HOSPITAL COURSE Hospital Course: (1) Syncope and collapse The patient had an unwitnessed fall, but very soon response by his son. The patient admits to a complete loss of consciousness, and sustained a blow to his head and back. Imaging obtained in the ED show no acute fractures and the patient is neuro-intact upon exam. The patient admits to about one week ago at 0330AM being woken up by an internal shock from his ICD ([employer]). He talked about being late for his device check up. Attempts were made to get a current reading from the ED [employer] device, but this was unable to be appropriately downloaded as this device is thought to be lacking the most current update as per phone rep. The patient has worsening heart function, and was found to be tachycardic upon admission. It has been concluded that the cause of his syncope was mild dehydration due to acute infection. Carotid dopplers are negative for concerning stenosis. Echocardiogram results show a reduced EF estimated at 20-25%, with severe LV systolic impairment. Severe increase in the LA volume index. Mitral regurg, mild tricuspid regurg and an RVSP at rest of 31 mmHg. Continue fall precautions, treat infection, and monitor. (2) Abdominal pain The patient was having abdominal discomfort, and had suspected blood in his emesis during his first night of stay, so an abdominal x-ray was obtained and showed a large amount of stool in the colon. An NG tube was placed overnight, and discontinued the next AM. The patient's appetite is only mildly improved since admission. He was started on Reglan, which made no improvement of his symptoms. Continue to monitor and give laxatives, stool softeners, and give PRNs enema/suppository. (3) Fall The patient admits to similar episodes in his remote past, but nothing recent until today prior to arrival to the ED via EMS. The patient had a very brief warning which was a feeling of dizziness, mild diaphoresis, and mild shortness of breath. The next memory is when he wakes up on the floor after a fall and prior to the episodes, the patient had feeling of dizziness. Physical therapy has been seeing the patient daily. Continue fall precautions and daily PT. (4) CHF (congestive heart failure) The patient is prescribed torsemide BID at home, metoprolol succinate, and an ARB for medical management of his CHF. Echocardiogram results show overall poor heart function and an estimated EF of only ~20%, severely impaired LV function. Today the patient has trending BNPs that continue to show fluid overload with a value of 395 today. He continues to wear supplemental oxygen at 2L. He continues on an increased metoprolol succinate dose with favorable blood pressure and heart rates. He was given a one time dose of potassium today in response to the IV lasix about 48 hours ago. Continue torsemide, metoprolol, PO , monitor daily BNP, labs, and respiratory status. (5) BPH (benign prostatic hyperplasia) The patient remains with a chronic S/P cath and takes Flomax daily, which was on hold in light of the patient's FLAKO. The catheter was changed about 2-3 prior to admission as per patient. A urine culture grew out enterococcus faecalis and antibiotics were adjusted. Continue care, chronic thibodeaux via S/P cath. (6) Diabetes mellitus type 2 in nonobese The patient states that he was first diagnosed with DM in 1983. Since that time he has had several vascular complications including chronic peripheral neuropathy, VA with coronary stenting, vascular disease in his extremities with BLE stenting, BPH leading to chronic obstruction, HTN, hyperlipidemia, and a recent stroke. A HgA1C was 10.8. Early AM sugars are elevated, so adjustments were made to the Lantus dose. We will continue the HS Lantus, moderate scale SSI, and encourage PO intake. To simplify, the patient will likely be adjusted to Lantus daily upon discharge. I expect an improvement in overall blood glucose as his infection is being treated accurately. Continue with AC/HS blood glucose monitoring, SSI, and continue HS lantus. If he is approved for a SNF discharge, only Lantus daily will be recommended to simplify. (7) Hearing loss Although the patient has mildly sluggish speech at times, he remains a good historian. He was very good at asking for clarification, knows his medical conditions and could articulate very appropriately upon exam. Extra time with communication and use a communication board if needed. (8) Closed head injury The patient struck his head as he fell to the ground during his syncopal episode. Imaging in the ED shows no evidence of bleeding. There have been no wounds or obvious bruising appreciated. The patient is very alert upon exam, and shows no signs of confusion or changes in mental status. He denies headaches. The patient was monitored for worsening mental status, new vision changes, or headaches. (9) Urinary tract infection The patient was tachycardic, mildly hypotensive, has an elevated WBC count that is increased from 11 to 12.1 today. A UA was obtained in the ED and cultures grew out enterococcus faecalis, so antibiotics were changed to Ampicillin. This infection is thought to have been the primary cause of his syncope. The patient's S/P cath was maintained and he was continued on Ampicillin and watched for changes in mental status. (10) Lumbar back pain The patient complained of new low back pain since having his syncopal episode prior to admission and this remains to be his primary complaint most days. Imaging of his lumbar spine shows no acute fractures. The patient's mobility has been slowly declining and physical therapy has been seeing the patient daily. Plan: IV dilaudid PRN, k-pad for comfort and PT/OT to continue daily. (11) Bowel incontinence This has been very troubling for the patient and has been ongoing for at least one year since the patient's last known CVA. We recommend a good daily bowel maintenance using Mirrlax or metamucil to keep thing regular and predictable. He should follow up with his PCP. (12) Moderate protein calorie malnutrition This was determined by the patient having evidence of recent weight loss by a 5.8% charted weight loss in the past 4 months. The patient was evaluated by our men's locker room attendant, who brought this to the medical teams attention. We encouraged high protein intake, a multivitamin daily and regular monitoring of the patient's weight. Disposition: The patient is expected to be discharged to a SNF as he needs further strengthening and at the time of medical discharge is likely to fall at home as he is debilitated from his baseline activity level. - ALLERGIES Allergies/Adverse Reactions: Allergies Allergy/AdvReac Type Severity Reaction Status Date / Time pregabalin [From Lyrica] Allergy Unknown Verified 10/15/17 12:20 Sulfa (Sulfonamide Allergy Unknown Verified 10/15/17 12:20 Antibiotics) tetracycline Allergy Unknown Verified 10/15/17 12:20 - MEDICATIONS Home Medications: Ambulatory Orders Medication Instructions Recorded Confirmed Acetaminophen [Pain Reliever] 500 mg PO Q6H PRN 05/31/17 10/16/17 Clopidogrel [Plavix] 75 mg PO DAILY 05/31/17 10/15/17 Fludrocortisone [Florinef] 0.1 mg PO DAILY 05/31/17 10/15/17 HYDROcod/ACETAM 5/325 [[place] 5/325] 1 - 2 ea PO Q6H PRN #15 tablet 05/31/17 Levothyroxine Sodium [Synthroid] 75 mcg PO DAILY 05/31/17 10/15/17 Aspirin [Aspirin EC] 81 mg PO DAILY 10/15/17 10/15/17 Famotidine [Pepcid] 20 mg PO ONCE 10/15/17 10/15/17 Torsemide [Demadex] 20 mg PO BID 10/15/17 10/15/17 Ampicillin Trihydrate 500 mg PO TID 8 Days #24 capsule 10/20/17 Bisacodyl [Dulcolax] 10 mg PO DAILY tablet 10/20/17 Cyclobenzaprine [Flexeril] 5 mg PO TID PRN tablet 10/20/17 HYDROcod/ACETAM 5/325 [[place] 5/325] 1 tab PO Q4HR PRN #42 tablet 10/20/17 Insulin Glargine [Lantus Solostar] 15 unit SUBQ QPM #3 pen 10/20/17 Metoprolol Succinate [Toprol Xl] 25 mg PO BID #60 tablet 10/20/17 Multivitamin W/Minerals [Theragran 1 tab PO DAILYWM #30 tablet 10/20/17 M] Psyllium [Metamucil] 1 pkt PO DAILY #30 10/20/17 10/15/17 Saccharomyces Boulardii [Florastor] 250 mg PO BID #90 capsule 10/20/17 Sennosides [Natural Laxative] 1 tab PO DAILY #30 10/20/17 10/15/17 Tamsulosin [Flomax] 0.4 mg PO DAILY #30 10/20/17 10/15/17 - PHYSICAL EXAM AT DISCHARGE General Appearance: positive: No acute distress, Alert, Lethargic Eyes Bilateral: positive: Normal inspection, Other (pale bilateral conjuctivae) ENT: positive: ENT inspection nml, Pharyngeal erythema, Dry mucous membranes Neck: positive: Nml inspection, Thyroid nml, No JVD, Trachea midline Respiratory: positive: Chest non-tender, No respiratory distress, Other ( scattered crackles) Cardiovascular: positive: No gallop, Irregularly irregular, Systolic murmur, Decreased pulse(s) Peripheral Pulses: positive: 1+ Abdomen: positive: Non-tender, Nml bowel sounds, Other (rounded, soft) Back: positive: Nml inspection, CVA tenderness (R), CVA tenderness (L), Other ( tenderness in low back due to fall.) Skin: positive: No rash, Warm, Dry, Other (pale) Extremities: positive: Non-tender, Nml appearance, No pedal edema Neurologic/Psychiatric: positive: Oriented x3, CN's nml (2-12), Motor nml, Sensation nml, Weakness, Sensory loss, Slurred/abnml speech (sluggish speech at times), Depressed mood/affect Reflexes: Bicep (R): 3+, Bicep (L): 3+ - LABS Result Diagrams: 10/20/17 05:26 10/20/17 05:26 - DIAGNOSTIC IMAGING Diagnostic Imaging Results: Final report reviewed Diagnostic Imaging Results Comments: EXAM: CT BONY PELVIS WITHOUT CONTRAST EXAM DATE: 10/19/2017 05:09 AM. IMPRESSION: Degenerative changes. No evidence of acute fracture. EXAM: CT HEAD EXAM DATE: 10/15/2017 02:52 PM. IMPRESSION: No acute intracranial abnormality. EXAM: CT LUMBAR SPINE WITHOUT CONTRAST EXAM DATE: 10/15/2017 03:06 PM. IMPRESSION: 1. Moderate degenerative changes detailed above. 2. Negative for fracture EXAM: CHEST RADIOGRAPHY EXAM DATE: 10/15/2017 03:05 PM. IMPRESSION: No active cardiopulmonary disease EXAM: BILATERAL CAROTID AND VERTEBRAL ARTERY DUPLEX DOPPLER ULTRASOUND: EXAM DATE: 10/16/2017 07:55 PM IMPRESSION: 1. 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 2. In the right carotid artery there are no elevated carotid artery velocities to suggest hemodynamically significant stenosis. 3. In the left carotid artery there are no elevated carotid artery velocities to suggest hemodynamically significant stenosis. 4. Normal antegrade flow is present in bilateral vertebral arteries. EXAM: ABDOMEN RADIOGRAPHY EXAM DATE: 10/16/2017 03:44 AM. IMPRESSION: Large amount of stool throughout the colon. No small bowel dilatation. EXAM: CHEST RADIOGRAPHY EXAM DATE: 10/16/2017 05:01 AM. IMPRESSION: Enteric tube terminating in the stomach. ECHOCARDIOGRAM: Final read by Mike Murry MD 1. Suboptimal image quality. 2. Normal LF size with likely severe reduced systolic function, EF 25% visually. 3. Normal RV size and function. Pulmonary pressure is normal. 4. Probably moderate anteriorly direct mitral regurg. Mitral leaflets are mildly thickened without obvious prolapse. 5. Consider limited echo with Definity contrast for better evaluation of LV wall motion. - FOLLOW UP Follow Up: Disposition: 03 SNF DC/Xfer Condition: Good SNF Transition Orders: Admit to: [facility] under the care of Reinaldo Paulino Discharge Diagnosis: Syncope and collapse, acute UTI, acute systolic and diastolic heart failure, BPH, chronic S/P cath, hearing loss, DM type 2, closed head injury, low back pain, abdominal pain generalized weakness, and fall. - TIME SPENT Time Spent in Discharge (Minutes): 55
[2017-10-19] MEDS ORDERED: INSULIN GLARGINE 300 UNIT/3 ML PEN SUBQ SCH (15:22)
--- NOTE | 2017-10-19 15:48 | PROVIDER PROGRESS NOTE ---
Subjective - Prog Note Date Prog Note Date: 10/19/17 Prog Note Time: 15:47 - Subjective Pt reports feeling: Improved Subjective: Quentin denies increased abdominal girth and states that he feels that his fluid balance is nearly baseline today. He denies any new symptoms such as increased shortness of breath, a productive cough, nausea, vomiting or increased dizziness. Current Medications - Current Medications Current Medications: Active Medications Acetaminophen (Tylenol) 650 mg PO Q4HR PRN PRN Reason: Pain or Fever > 38C (100.4F) Last Admin: 10/18/17 22:37 Dose: 650 mg Hydrocodone Bitart/Acetaminophen ([place] 5/325) 1 tab PO Q4HR PRN PRN Reason: PAIN Last Admin: 10/19/17 06:17 Dose: 1 tab Bisacodyl (Dulcolax) 10 mg PO DAILY [facility] Last Admin: 10/19/17 09:06 Dose: 10 mg Bisacodyl (Dulcolax Supp) 10 mg KS DAILY PRN PRN Reason: Constipation Last Admin: 10/19/17 02:25 Dose: 10 mg Cyclobenzaprine HCl (Flexeril) 5 mg PO TID PRN PRN Reason: Spasms Last Admin: 10/19/17 05:05 Dose: 5 mg Docusate Sodium (Colace 250mg Capsule) 250 - 500 mg PO DAILY [facility] Last Admin: 10/19/17 09:08 Dose: 250 mg Fludrocortisone Acetate (Florinef) 0.1 mg PO DAILY [facility] Last Admin: 10/19/17 09:07 Dose: 0.1 mg Promethazine HCl 12.5 mg/ (Sodium Chloride) 50.5 mls @ 100 mls/hr IV Q6H PRN PRN Reason: Nausea / Vomiting Last Infusion: 10/16/17 06:44 Dose: Infused Ampicillin Sodium 1 gm/ Sodium (Chloride) 100 mls @ 200 mls/hr IV Q6H [facility] Last Admin: 10/19/17 14:32 Dose: 200 mls/hr Insulin Aspart (Novolog) 2 - 10 unit SUBQ 0800,1200,1700,2100 ОЛЕГ PRN Reason: Protocol Last Admin: 10/19/17 11:44 Dose: 4 unit Insulin Glargine (Lantus Solostar) 15 unit SUBQ QPM [facility] Ketorolac Tromethamine (Toradol Inj (15mg)) 15 mg IVP ONCE [facility] Stop: 10/23/17 23:44 Last Admin: 10/18/17 23:57 Dose: 15 mg Levothyroxine Sodium (Synthroid) 75 mcg PO QDAC [facility] Last Admin: 10/19/17 06:16 Dose: 75 mcg Metoclopramide HCl (Reglan) 10 mg PO ACHS [facility] Last Admin: 10/19/17 11:44 Dose: 10 mg Metoprolol Succinate (Toprol Xl) 25 mg PO BID [facility] Last Admin: 10/19/17 09:02 Dose: Not Given Mineral Oil (Cavilon) 1 applic TOP PRN PRN PRN Reason: Skin Care Morphine Sulfate (Morphine) 2 mg IVP Q2H PRN PRN Reason: PAIN Multivitamins/Minerals (Theragran M) 1 tab PO DAILYWM [facility] Last Admin: 10/19/17 09:08 Dose: 1 tab Ondansetron HCl (Zofran Inj) 4 mg IVP Q4HR PRN PRN Reason: Nausea / Vomiting Last Admin: 10/17/17 09:22 Dose: 4 mg Polyethylene Glycol (Miralax) 17 gm PO DAILY PRN PRN Reason: Bowel Protocol Last Admin: 10/19/17 09:05 Dose: 17 gm Senna (Senokot) 8.6 - 17.2 mg PO DAILY [facility] Last Admin: 10/19/17 09:08 Dose: 8.6 mg Sodium Chloride (Normal Saline Flush 0.9%) 10 ml IVP PRN PRN PRN Reason: NEEDED PER PROVIDER ORDERS Last Admin: 10/18/17 23:57 Dose: 10 ml Sodium Chloride (Normal Saline Flush 0.9%) 10 ml IVP 0100,0900,1700 [facility] Last Admin: 10/19/17 09:01 Dose: 10 ml Torsemide (Torsemide) 20 mg PO BID [facility] Last Admin: 10/19/17 09:07 Dose: 20 mg Acetaminophen [Pain Reliever] 500 mg PO Q6H PRN 05/31/17 Clopidogrel [Plavix] 75 mg PO DAILY 05/31/17 Fludrocortisone [Florinef] 0.1 mg PO DAILY 05/31/17 Levothyroxine Sodium [Synthroid] 75 mcg PO DAILY 05/31/17 Metoprolol Succinate [Toprol Xl] 25 mg PO DAILY 05/31/17 Polyethylene Glycol 3350 [Glycolax] 17 gm PO DAILY 05/31/17 Tamsulosin [Flomax] 0.4 mg DAILY 05/31/17 Aspirin [Aspirin EC] 81 mg PO DAILY 10/15/17 Famotidine [Pepcid] 20 mg PO ONCE 10/15/17 Insulin Regular Human [NovoLIN R] 15 - 30 unit SUBQ ACHS 10/15/17 Psyllium [Metamucil] 1 pkt PO DAILY 10/15/17 Sennosides [Natural Laxative] 1 tab PO DAILY 10/15/17 Torsemide [Demadex] 20 mg PO BID 10/15/17 Insulin NPH Human Isophane [Novolin N] 60 unit SUBQ BID 10/16/17 Objective - Vital Signs/Intake & Output Reviewed Vital Signs: Yes Vital Signs: Vital Signs x48h Temp Pulse Resp BP Pulse Ox 10/19/17 08:00 36.2 C L 59 L 16 113/50 L 97 Intake & Output: Intake & Output 10/16/17 10/17/17 10/18/17 10/19/17 23:59 23:59 23:59 23:59 Intake Total 2341.167 1945 2301 570 Output Total 1650 2125 3900 775 Balance 691.167 -180 -1599 -205 - Objective General Appearance: positive: No acute distress, Alert Eyes Bilateral: positive: Normal inspection, PERRL ENT: positive: ENT inspection nml, Pharynx nml, Dry mucous membranes Neck: positive: Nml inspection, Thyroid nml, No JVD, Trachea midline Respiratory: positive: Chest non-tender, No respiratory distress, Rhonchi Cardiovascular: positive: No gallop, Irregularly irregular, Systolic murmur, Decreased pulse(s) Peripheral Pulses: 1+ Radial (R), 1+ Radial (L) Abdomen: positive: Non-tender, Nml bowel sounds, Other (rounded, soft) Back: positive: Nml inspection Skin: positive: No rash, Warm, Dry Extremities: positive: Non-tender, Nml appearance, No pedal edema, Joint swelling Neurologic/Psychiatric: positive: Oriented x3, CN's nml (2-12), Motor nml, Sensation nml, Weakness, Sensory loss, Slurred/abnml speech (slow to respond at times.), Depressed mood/affect Reflexes: Bicep (R): 3+, Bicep (L): 3+ - Lab Results Fish Bones: 10/20/17 05:26 10/20/17 05:26 Other Labs: Lab Results x24hrs 10/19/17 10/19/17 10/19/17 Range/Units 11:29 07:51 07:51 WBC (4.8-10.8) x10^3/uL RBC (4.70-6.10) 10^6/uL Hgb (14.0-18.0) g/dL Hct (42.0-52.0) % MCV (80.0-94.0) fL MCH (27.0-31.0) pg MCHC (32.0-36.0) g/dL RDW (12.0-15.0) % Plt Count (130-450) 10^3/uL MPV (7.4-11.4) fL Neut # (Auto) (1.5-6.6) 10^3/uL Lymph # (Auto) (1.5-3.5) 10^3/uL [place] # (Auto) (0.0-1.0) 10^3/uL Eos # (Auto) (0.0-0.7) 10^3/uL Baso # (Auto) (0.0-0.1) 10^3/uL Absolute Nucleated RBC x10^3/uL Nucleated RBC % /100WBC Sodium 133 L (135-145) mmol/L Potassium 3.6 (3.5-5.0) mmol/L Chloride 95 L (101-111) mmol/L Carbon Dioxide 29 (21-32) mmol/L Anion Gap 9.0 (6-13) BUN 45 H (6-20) mg/dL Creatinine 1.8 H (0.6-1.2) mg/dL Estimated GFR (MDRD) 36 L (>89) Glucose 233 H (70-100) mg/dL POC Whole Bld Glucose 225 H (70 - 100) mg/dL Calcium 8.5 (8.5-10.3) mg/dL Total Bilirubin 0.9 (0.2-1.0) mg/dL AST 12 (10-42) IU/L ALT < 10 L (10-60) IU/L Alkaline Phosphatase 60 (42-121) IU/L B-Natriuretic Peptide 388 H (5-100) pg/mL Total Protein 6.0 L (6.7-8.2) g/dL Albumin 2.7 L (3.2-5.5) g/dL Globulin 3.3 (2.1-4.2) g/dL Albumin/Globulin Ratio 0.8 L (1.0-2.2) 10/19/17 10/19/17 10/18/17 Range/Units 07:51 07:45 21:10 WBC 7.3 (4.8-10.8) x10^3/uL RBC 4.01 L (4.70-6.10) 10^6/uL Hgb 9.7 L (14.0-18.0) g/dL Hct 30.1 L (42.0-52.0) % MCV 75.1 L (80.0-94.0) fL MCH 24.3 L (27.0-31.0) pg MCHC 32.3 (32.0-36.0) g/dL RDW 18.1 H (12.0-15.0) % Plt Count 209 (130-450) 10^3/uL MPV 8.3 (7.4-11.4) fL Neut # (Auto) 4.2 (1.5-6.6) 10^3/uL Lymph # (Auto) 2.2 (1.5-3.5) 10^3/uL [place] # (Auto) 0.6 (0.0-1.0) 10^3/uL Eos # (Auto) 0.2 (0.0-0.7) 10^3/uL Baso # (Auto) 0.0 (0.0-0.1) 10^3/uL Absolute Nucleated RBC 0.00 x10^3/uL Nucleated RBC % 0.0 /100WBC Sodium (135-145) mmol/L Potassium (3.5-5.0) mmol/L Chloride (101-111) mmol/L Carbon Dioxide (21-32) mmol/L Anion Gap (6-13) BUN (6-20) mg/dL Creatinine (0.6-1.2) mg/dL Estimated GFR (MDRD) (>89) Glucose (70-100) mg/dL POC Whole Bld Glucose 234 H 283 H (70 - 100) mg/dL Calcium (8.5-10.3) mg/dL Total Bilirubin (0.2-1.0) mg/dL AST (10-42) IU/L ALT (10-60) IU/L Alkaline Phosphatase (42-121) IU/L B-Natriuretic Peptide (5-100) pg/mL Total Protein (6.7-8.2) g/dL Albumin (3.2-5.5) g/dL Globulin (2.1-4.2) g/dL Albumin/Globulin Ratio (1.0-2.2) 10/18/17 10/18/17 10/18/17 Range/Units 16:29 11:27 08:00 WBC (4.8-10.8) x10^3/uL RBC (4.70-6.10) 10^6/uL Hgb (14.0-18.0) g/dL Hct (42.0-52.0) % MCV (80.0-94.0) fL MCH (27.0-31.0) pg MCHC (32.0-36.0) g/dL RDW (12.0-15.0) % Plt Count (130-450) 10^3/uL MPV (7.4-11.4) fL Neut # (Auto) (1.5-6.6) 10^3/uL Lymph # (Auto) (1.5-3.5) 10^3/uL [place] # (Auto) (0.0-1.0) 10^3/uL Eos # (Auto) (0.0-0.7) 10^3/uL Baso # (Auto) (0.0-0.1) 10^3/uL Absolute Nucleated RBC x10^3/uL Nucleated RBC % /100WBC Sodium (135-145) mmol/L Potassium (3.5-5.0) mmol/L Chloride (101-111) mmol/L Carbon Dioxide (21-32) mmol/L Anion Gap (6-13) BUN (6-20) mg/dL Creatinine (0.6-1.2) mg/dL Estimated GFR (MDRD) (>89) Glucose (70-100) mg/dL POC Whole Bld Glucose 337 H 357 H 231 H (70 - 100) mg/dL Calcium (8.5-10.3) mg/dL Total Bilirubin (0.2-1.0) mg/dL AST (10-42) IU/L ALT (10-60) IU/L Alkaline Phosphatase (42-121) IU/L B-Natriuretic Peptide (5-100) pg/mL Total Protein (6.7-8.2) g/dL Albumin (3.2-5.5) g/dL Globulin (2.1-4.2) g/dL Albumin/Globulin Ratio (1.0-2.2) 10/17/17 10/17/17 10/17/17 Range/Units 20:34 16:10 11:19 WBC (4.8-10.8) x10^3/uL RBC (4.70-6.10) 10^6/uL Hgb (14.0-18.0) g/dL Hct (42.0-52.0) % MCV (80.0-94.0) fL MCH (27.0-31.0) pg MCHC (32.0-36.0) g/dL RDW (12.0-15.0) % Plt Count (130-450) 10^3/uL MPV (7.4-11.4) fL Neut # (Auto) (1.5-6.6) 10^3/uL Lymph # (Auto) (1.5-3.5) 10^3/uL [place] # (Auto) (0.0-1.0) 10^3/uL Eos # (Auto) (0.0-0.7) 10^3/uL Baso # (Auto) (0.0-0.1) 10^3/uL Absolute Nucleated RBC x10^3/uL Nucleated RBC % /100WBC Sodium (135-145) mmol/L Potassium (3.5-5.0) mmol/L Chloride (101-111) mmol/L Carbon Dioxide (21-32) mmol/L Anion Gap (6-13) BUN (6-20) mg/dL Creatinine (0.6-1.2) mg/dL Estimated GFR (MDRD) (>89) Glucose (70-100) mg/dL POC Whole Bld Glucose 275 H 233 H 274 H (70 - 100) mg/dL Calcium (8.5-10.3) mg/dL Total Bilirubin (0.2-1.0) mg/dL AST (10-42) IU/L ALT (10-60) IU/L Alkaline Phosphatase (42-121) IU/L B-Natriuretic Peptide (5-100) pg/mL Total Protein (6.7-8.2) g/dL Albumin (3.2-5.5) g/dL Globulin (2.1-4.2) g/dL Albumin/Globulin Ratio (1.0-2.2) 10/17/17 10/16/17 10/16/17 Range/Units 07:28 20:13 16:32 WBC (4.8-10.8) x10^3/uL RBC (4.70-6.10) 10^6/uL Hgb (14.0-18.0) g/dL Hct (42.0-52.0) % MCV (80.0-94.0) fL MCH (27.0-31.0) pg MCHC (32.0-36.0) g/dL RDW (12.0-15.0) % Plt Count (130-450) 10^3/uL MPV (7.4-11.4) fL Neut # (Auto) (1.5-6.6) 10^3/uL Lymph # (Auto) (1.5-3.5) 10^3/uL [place] # (Auto) (0.0-1.0) 10^3/uL Eos # (Auto) (0.0-0.7) 10^3/uL Baso # (Auto) (0.0-0.1) 10^3/uL Absolute Nucleated RBC x10^3/uL Nucleated RBC % /100WBC Sodium (135-145) mmol/L Potassium (3.5-5.0) mmol/L Chloride (101-111) mmol/L Carbon Dioxide (21-32) mmol/L Anion Gap (6-13) BUN (6-20) mg/dL Creatinine (0.6-1.2) mg/dL Estimated GFR (MDRD) (>89) Glucose (70-100) mg/dL POC Whole Bld Glucose 195 H 328 H 322 H (70 - 100) mg/dL Calcium (8.5-10.3) mg/dL Total Bilirubin (0.2-1.0) mg/dL AST (10-42) IU/L ALT (10-60) IU/L Alkaline Phosphatase (42-121) IU/L B-Natriuretic Peptide (5-100) pg/mL Total Protein (6.7-8.2) g/dL Albumin (3.2-5.5) g/dL Globulin (2.1-4.2) g/dL Albumin/Globulin Ratio (1.0-2.2) 10/16/17 Range/Units 11:20 WBC (4.8-10.8) x10^3/uL RBC (4.70-6.10) 10^6/uL Hgb (14.0-18.0) g/dL Hct (42.0-52.0) % MCV (80.0-94.0) fL MCH (27.0-31.0) pg MCHC (32.0-36.0) g/dL RDW (12.0-15.0) % Plt Count (130-450) 10^3/uL MPV (7.4-11.4) fL Neut # (Auto) (1.5-6.6) 10^3/uL Lymph # (Auto) (1.5-3.5) 10^3/uL [place] # (Auto) (0.0-1.0) 10^3/uL Eos # (Auto) (0.0-0.7) 10^3/uL Baso # (Auto) (0.0-0.1) 10^3/uL Absolute Nucleated RBC x10^3/uL Nucleated RBC % /100WBC Sodium (135-145) mmol/L Potassium (3.5-5.0) mmol/L Chloride (101-111) mmol/L Carbon Dioxide (21-32) mmol/L Anion Gap (6-13) BUN (6-20) mg/dL Creatinine (0.6-1.2) mg/dL Estimated GFR (MDRD) (>89) Glucose (70-100) mg/dL POC Whole Bld Glucose 277 H (70 - 100) mg/dL Calcium (8.5-10.3) mg/dL Total Bilirubin (0.2-1.0) mg/dL AST (10-42) IU/L ALT (10-60) IU/L Alkaline Phosphatase (42-121) IU/L B-Natriuretic Peptide (5-100) pg/mL Total Protein (6.7-8.2) g/dL Albumin (3.2-5.5) g/dL Globulin (2.1-4.2) g/dL Albumin/Globulin Ratio (1.0-2.2) ABX Reporting Has patient been on IV antibiotics over the past 48 hours?: Yes Assessment/Plan - Problem List (1) Syncope and collapse Impression: The patient had an unwitnessed fall, but very soon response by his son. The patient admits to a complete loss of consciousness, and sustained a blow to his head and back. Imaging obtained in the ED show no acute fractures and the patient is neuro-intact upon exam. The patient admits to about one week ago at 0330AM being woken up by an internal shock from his ICD ([employer]). He talked about being late for his device check up. Attempts were made to get a current reading from the ED [employer] device, but this was unable to be appropriately downloaded as this device is thought to be lacking the most current update as per phone rep. The patient has worsening heart function, and was found to be tachycardic upon admission. It has been concluded that the cause of his syncope was mild dehydration due to acute infection. Carotid dopplers are negative for concerning stenosis. Echocardiogram results show a reduced EF estimated at 20-25%, with severe LV systolic impairment. Severe increase in the LA volume index. Mitral regurg, mild tricuspid regurg and an RVSP at rest of 31 mmHg. He has since had less and less dizziness that improved soon after restarting his daily steroid. Plan: Continue fall precautions, treat infection, and monitor. (2) Abdominal pain Impression: The patient was having abdominal discomfort, and had suspected blood in his emesis during his first night of stay, so an abdominal x-ray was obtained and showed a large amount of stool in the colon. An NG tube was placed overnight, and discontinued the next AM. The patient's appetite continues to slowly improve since admission. He was started on Reglan, which made no improvement of his symptoms. Plan: Continue to monitor and give laxatives, stool softeners, and give PRNs enema/suppository. (3) Fall Impression: The patient admits to similar episodes in his remote past, but nothing recent until today prior to arrival to the ED via EMS. The patient had a very brief warning which was a feeling of dizziness, mild diaphoresis, and mild shortness of breath. The next memory is when he wakes up on the floor after a fall and prior to the episodes, the patient had feeling of dizziness. Physical therapy has been seeing the patient daily. Plan: Continue fall precautions and daily PT. Qualifiers: Encounter type: subsequent encounter Qualified Code(s): W19.XXXD - Unspecified fall, subsequent encounter (4) CHF (congestive heart failure) Impression: The patient is prescribed torsemide BID at home, metoprolol succinate, and an ARB for medical management of his CHF. Echocardiogram results show overall poor heart function and an estimated EF of only ~20%, severely impaired LV function. Today the patient has trending BNPs that continue to show fluid overload with a value of 395 today. He continues to wear supplemental oxygen at 2L. He continues on an increased metoprolol succinate dose with favorable blood pressure and heart rates. Plan: Continue torsemide, monitor daily BNP, labs, and respiratory status. (5) BPH (benign prostatic hyperplasia) Impression: The patient has such a severe case of this that he now has a chronic S/P cath and this is considered to be the source of infection. He continues on Flomax for prevention of bladder spasms. Plan: continue to monitor urine out put. Qualifiers: Lower urinary tract symptom presence: unspecified whether lower urinary tract symptoms present Qualified Code(s): N40.0 - Benign prostatic hyperplasia without lower urinary tract symptoms (6) Diabetes mellitus type 2 in nonobese Impression: The patient states that he was first diagnosed with DM in 1983. 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 A HgA1C was 10.8. Early AM sugars are elevated this morning. We will continue the HS Lantus, moderate scale SSI, and encourage PO intake. To simplify, the patient will likely be adjusted to Lantus daily upon discharge. I expect an improvement in overall blood glucose as his infection is being treated accurately. Plan: Continue with AC/HS blood glucose monitoring, SSI, and continue HS lantus. (7) Hearing loss Impression: Although the patient has mildly sluggish speech at times, he remains a good historian. He was very good at asking for clarification, knows his medical conditions and could articulate very appropriately upon exam. Plan: Take extra time with communication and use a communication board if needed. (8) Closed head injury Impression: The patient struck his head as he fell to the ground during his syncopal episode. Imaging in the ED shows no evidence of bleeding. There have been no wounds or obvious bruising appreciated. The patient is very alert upon exam, and shows no signs of confusion or changes in mental status. He denies headaches. Plan: Monitor for worsening mental status, new vision changes, or headaches. Qualifiers: Encounter type: initial encounter Qualified Code(s): S09.90XA - Unspecified injury of head, initial encounter (9) Urinary tract infection Impression: The patient was tachycardic, mildly hypotensive, has an elevated WBC count that is increased from 11 to 12.1 today. A UA was obtained in the ED and cultures grew out enterococcus faecalis, so antibiotics were changed to Ampicillin. This infection is thought to have been the primary cause of his syncope. Plan: Maintain S/P cath, continue Ampicillin, monitor vital signs, and monitor mental status. Qualifiers: Indwelling urinary catheter type: indwelling urethral catheter Encounter type: subsequent encounter (10) Lumbar back pain Impression: The patient complained of new low back pain since having his syncopal episode prior to admission and this remains to be his primary complaint most days. Imaging of his lumbar spine shows no acute fractures. The patient's mobility has been slowly declining and physical therapy has been seeing the patient daily. Plan: IV dilaudid PRN, k-pad for comfort and PT/OT to continue daily.
[2017-10-19] MEDS: KETOROLAC 15 MG/ML VIAL IVP SCH (18:27)
[2017-10-20] MEDS: SODIUM CHLORIDE FLUSH 0.9% 10 ML SYRINGE IVP SCH ×2 (00:20→08:05)
[2017-10-20] MEDS: CYCLOBENZAPRINE 10 MG TABLET PO PRN (00:26)
[2017-10-20] MEDS: HYDROcod/ACETAM 5/325 MG TABLET PO PRN ×2 (01:25→06:30)
[2017-10-20] MEDS: AMPICILLIN 1 GM in SODIUM CHLORIDE 0.9% MINIBAG 100 ML IV SCH ×2 (04:06→08:02)
[2017-10-20] MEDS: SODIUM CHLORIDE FLUSH 0.9% 10 ML SYRINGE IVP PRN (04:07)
[2017-10-20] MEDS: ACETAMINOPHEN 325 MG TABLET PO PRN (04:13)
[2017-10-20] MEDS: TORSEMIDE 20 MG TABLET PO SCH (04:30)
[2017-10-20 06:06] LABS: BASOPHILS % (AUTO) 0.5 %; EOSINOPHILS # (AUTO) 0.4 10^3/uL (0.0-0.7); EOSINOPHILS % (AUTO) 5.1 %; HGB - HEMOGLOBIN 9.4 g/dL (14.0-18.0); LYMPHOCYTES # (AUTO) 2.1 10^3/uL (1.5-3.5); LYMPHOCYTES % (AUTO) 30.4 %; MEAN CORPUSCULAR HEMOGLOBIN 24.1 pg (27.0-31.0); MEAN CORPUSCULAR VOLUME 75.3 fL (80.0-94.0); MEAN PLATELET VOLUME 8.3 fL (7.4-11.4); MONOCYTES # (AUTO) 0.7 10^3/uL (0.0-1.0); MONOCYTES % (AUTO) 9.8 %; NEUTROPHILS # (AUTO) 3.7 10^3/uL (1.5-6.6); NEUTROPHILS % (AUTO) 54.2 %; PLT - PLATELET COUNT 221 10^3/uL (130-450); RED BLOOD COUNT 3.91 10^6/uL (4.70-6.10); RED CELL DISTRIBUTION WIDTH 18.3 % (12.0-15.0); WHITE BLOOD COUNT 6.8 x10^3/uL (4.8-10.8)
[2017-10-20 06:17] LABS: ALBUMIN 2.5 g/dL (3.2-5.5); ALBUMIN/GLOBULIN RATIO 0.8 (1.0-2.2); ALKALINE PHOSPHATASE 60 IU/L (42-121); ALT ALANINE AMINOTRANSFERASE < 10 IU/L (10-60); AST ASPARTATE AMINOTRANSFERASE 11 IU/L (10-42); BILIRUBIN,TOTAL 0.7 mg/dL (0.2-1.0); BUN - BLOOD UREA NITROGEN 47 mg/dL (6-20); CALCIUM 8.3 mg/dL (8.5-10.3); CARBON DIOXIDE - CO2 28 mmol/L (21-32); CHLORIDE 95 mmol/L (101-111); CREATININE 1.6 mg/dL (0.6-1.2); GFR - MDRD 41 (>89); GLUCOSE 194 mg/dL (70-100); SODIUM 133 mmol/L (135-145); TOTAL PROTEIN 5.8 g/dL (6.7-8.2)
[2017-10-20] MEDS: METOCLOPRAMIDE 10 MG TABLET PO SCH (06:30)
[2017-10-20] MEDS: LEVOTHYROXINE 75 MCG TABLET PO SCH (06:30)
--- NOTE | 2017-10-20 07:30 | Discharge Plan ---
"Discharge Plan for SNF / [facility] - DC Plan and Transition Orders Disposition: 03 SNF DC/Xfer Condition: Good SNF Transition Orders: Admit to: [facility] under the care of Reinaldo Paulino Discharge Diagnosis: Syncope and collapse, acute UTI, acute systolic and diastolic heart failure, BPH, chronic S/P cath, hearing loss, DM type 2, closed head injury, low back pain, abdominal pain generalized weakness, and fall. Medicare Certification: I certify that [facility] longterm care is medically necessary on a continuing basis for any of the conditions for which she/he is receiving care during hospitalization. Notify PCP of admission and forward orders to primary provider for signature. Weight on admission and weekly. Call PCP immediately if weight increases by 10 pounds or if patient develops dyspnea, chest pain/tightness or edema. House Bowel Program: yes; If no BM after 2 days, nurse may give M.O.M. 30ml PO PRN and /or ducolax Supp 1 CO and /or CRISTINA 250mg P.O., and/or senna 1-2 tabs PO. On day 3 nurse may give repeat above order until residents constipation is resolved. Immunizations: Annual Influenza Vaccine: yes. (between Oct 23 and May 22 .) Unless allergy or already given Two-Step PPD: yes; per [facility] [id number] or appropriate documentation of approved exceptions Treatments & Other Orders: Continue physical therapy, continue ampicillin for acute UTI, monitor fluid status changes with daily weights, respiratory status, and labs. Oxygen Orders: 1-3L per nasal cannula to keep oxygen saturation greater than 91% , PRN or with activity. Lab Tests or X-Rays Orders: Check BMP, CBC and BNP within one week. Medications: PLEASE REFER TO THE DISCHARGE MEDICATION LIST. Allergies and Adverse Reactions: Allergies Allergy/AdvReac Type Severity Reaction Status Date / Time pregabalin [From Lyrica] Allergy Unknown Verified 10/15/17 12:20 Sulfa (Sulfonamide Allergy Unknown Verified 10/15/17 12:20 Antibiotics) tetracycline Allergy Unknown Verified 10/15/17 12:20 - Medications New Prescriptions: HYDROcod/ACETAM 5/325 [[place] 5/325] 1 tab PO Q4HR PRN #42 tablet PRN Reason: Pain Ampicillin Trihydrate 500 mg PO TID 8 Days #24 capsule Insulin Glargine [Lantus Solostar] 15 unit SUBQ QPM #3 pen Metoprolol Succinate [Toprol Xl] 25 mg PO BID #60 tablet Multivitamin W/Minerals [Theragran M] 1 tab PO DAILYWM #30 tablet Saccharomyces Boulardii [Florastor] 250 mg PO BID #90 capsule - Diet Type: Geriatric Texture: Regular Liquids: Thin May have monthly special meal: Yes - Therapies | Activity Therapy: Evaluation | Treat if indicated: Speech, PT, OT Rehabilitation Potential: Maximize functional status, Return to independent living, Maintain present ADL Functional Activity: Activity as Tolerated Weight Bearing: Full Weight Assistance Devices: Walker"
[2017-10-20 07:34] VITALS: BP 125/60
[2017-10-20] MEDS ORDERED: SODIUM CHLORIDE 0.9% 50 ML IV ONE (07:53)
[2017-10-20] MEDS: METOPROLOL SUCCINATE 50 MG TABLET PO SCH (08:02)
[2017-10-20] MEDS: SENNA 8.6 MG TABLET PO SCH (08:02)
[2017-10-20] MEDS: BISACODYL 5 MG TABLET PO SCH (08:04)
[2017-10-20] MEDS: FLUDROCORTISONE 0.1 MG TABLET PO SCH (08:05)
[2017-10-20] MEDS: DOCUSATE SODIUM 250 MG CAPSULE PO SCH (08:05)
[2017-10-20] MEDS: INSULIN ASPART 300 UNIT/3 ML PEN SUBQ SCH (08:08)
[2017-10-20] MEDS: MULTIVITAMIN W/MINERALS TABLET PO SCH (09:11)
[2017-10-20] MEDS ORDERED: PERFLUTREN LIPID MICROSPHERES 1.65 MG/1.5 ML VIAL IVP ONE (10:18)
== END 2017-10-20 10:19 | DRG 699 ==
LOC: EDUNIT# → ED 12:10 → MS2 16:13 → OBSVTOIN 10-16 10:19
PROVIDERS: ADMIT Nurse Practitioner; ATTEND Nurse Practitioner
DX: T83.511A Infection and inflammatory reaction due to indwelling urethral catheter, initial encounter (principal); E44.0 Moderate protein-calorie malnutrition; B95.2 Enterococcus as the cause of diseases classified elsewhere; R55 Syncope and collapse; W19.XXXA Unspecified fall, initial encounter; J43.9 Emphysema, unspecified; S09.90XA Unspecified injury of head, initial encounter; E11.9 Type 2 diabetes mellitus without complications; I11.0 Hypertensive heart disease with heart failure; I50.9 Heart failure, unspecified; E78.5 Hyperlipidemia, unspecified; K21.9 Gastro-esophageal reflux disease without esophagitis; J44.9 Chronic obstructive pulmonary disease, unspecified; Z95.810 Presence of automatic (implantable) cardiac defibrillator; Z66 Do not resuscitate; N40.0 Benign prostatic hyperplasia without lower urinary tract symptoms; H91.90 Unspecified hearing loss, unspecified ear; R15.9 Full incontinence of feces; Z68.30 Body mass index [BMI] 30.0-30.9, adult; M54.5 Low back pain; R00.0 Tachycardia, unspecified; E86.0 Dehydration; R10.9 Unspecified abdominal pain
CPT/HCPCS: 36415; 70450; 71045; 71046; 72131; 72192; 74018; 80053; 81001; 81003; 82270; 83036; 83690; 83735; 83880; 84443; 84484; 85025; 85651; 86140; 86850; 86900; 86901; 87077; 87086; 87181; 93005; 93306; 93308; 93880; 96361; 96365; 96366; 96374; 96375; 99285

== ENCOUNTER 2018-01-06 14:00 | Outpatient (CLI) | payer MEDICARE, OTHER ==
[2018-01-06 19:52] LABS: BILIRUBIN,URINE NEGATIVE (NEGATIVE); GLUCOSE, URINE (UA) NEGATIVE (NEGATIVE); KETONES,URINE (UA) NEGATIVE (NEGATIVE); LEUKOCYTE ESTERASE, URINE SMALL (NEGATIVE); NITRITE,URINE NEGATIVE (NEGATIVE); OCCULT BLOOD,URINE MODERATE (NEGATIVE); PROTEIN,URINE TRACE mg/dL (NEGATIVE); UROBILINOGEN,URINE 0.2 (NORMAL) E.U./dL (NORMAL)
[2018-01-06 20:02] LABS: BACTERIA,URINE Moderate /HPF (None Seen); CLARITY,URINE CLOUDY (CLEAR); RBC,URINE 0-5 /HPF (0-5); SQUAMOUS EPITHELIAL CELL,UR FEW Squamous (<= Few)
== END 2018-01-06 14:01 ==
LOC: LAB.R 14:00
PROVIDERS: ATTEND Family Medicine
DX: N39.0 Urinary tract infection, site not specified (principal)
CPT/HCPCS: 81001; 87086

== ENCOUNTER 2018-01-18 15:05 | Outpatient (CLI) | payer MEDICARE, OTHER | END 2018-01-18 23:59 | disposition critical access hospital (66) | LOC: EMS 15:05 | PROVIDERS: ATTEND Surgery | DX: R22.1 Localized swelling, mass and lump, neck (principal); R53.1 Weakness | CPT/HCPCS: A0425; A0429 ==

== ENCOUNTER 2018-01-18 15:42 | Inpatient (IN) | payer MEDICARE, OTHER ==
[2018-01-18] MEDS ORDERED: SODIUM CHLORIDE 0.9% 1,000 ML IV ONE ×2 (16:03→17:31)
[2018-01-18] MEDS ORDERED: MORPHINE 2 MG/ML CARPUJECT IVP STA (16:03)
--- NOTE | 2018-01-18 16:05 | ED Physician Documentation ---
History of Present Illness - Stated complaint Stated Complaint: R JAW PX - Chief complaint Chief Complaint: General - History obtained from History obtained from: Family (son) - History of Present Illness Timing: Today (This is an 87-year-old gentleman with history of dementia and diabetes. He is at home for the last 3 weeks after released from a [facility]. The history is from the son due to patient confusion which per the son is not new. He is probably going to go into hospice in the next few days. They noticed painful right-sided facial swelling today which is unrelieved by hydrocodone. 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[address]: None : Benign prostate hypertrophy, Retention, Chronic bladder infection, Indwelling catheter, Other (chronic S/P cath) HEENT: Chronic vision loss, Chronic hearing loss Psych: Anxiety Musculoskeletal: Osteoarthritis Derm: None - Past Surgical History Past Surgical History: Yes Ortho: Spine surgery Cardiovascular: Coronary stent, Valve replacement, Pacemaker, AICD Derm: Skin cancer surgery - Present Medications Home Medications: Ambulatory Orders Medication Instructions Recorded Confirmed Acetaminophen [Pain Reliever] 500 mg PO Q6H PRN 05/31/17 10/16/17 Clopidogrel [Plavix] 75 mg PO DAILY 05/31/17 10/15/17 Fludrocortisone [Florinef] 0.1 mg PO DAILY 05/31/17 10/15/17 HYDROcod/ACETAM 5/325 [[place] 5/325] 1 - 2 ea PO Q6H PRN #15 tablet 05/31/17 10/15/17 Levothyroxine Sodium [Synthroid] 75 mcg PO DAILY 05/31/17 10/15/17 Aspirin [Aspirin EC] 81 mg PO DAILY 10/15/17 10/15/17 Famotidine [Pepcid] 20 mg PO ONCE 10/15/17 10/15/17 Torsemide [Demadex] 20 mg PO BID 10/15/17 10/15/17 Ampicillin Trihydrate 500 mg PO TID 8 Days #24 capsule 10/20/17 Bisacodyl [Dulcolax] 10 mg PO DAILY tablet 10/20/17 Cyclobenzaprine [Flexeril] 5 mg PO TID PRN tablet 10/20/17 HYDROcod/ACETAM 5/325 [[place] 5/325] 1 tab PO Q4HR PRN #42 tablet 10/20/17 Insulin Glargine [Lantus Solostar] 15 unit SUBQ QPM #3 pen 10/20/17 Metoprolol Succinate [Toprol Xl] 25 mg PO BID #60 tablet 10/20/17 Multivitamin W/Minerals [Theragran 1 tab PO DAILYWM #30 tablet 10/20/17 M] Psyllium [Metamucil] 1 pkt PO DAILY #30 10/20/17 10/15/17 Saccharomyces Boulardii [Florastor] 250 mg PO BID #90 capsule 10/20/17 Sennosides [Natural Laxative] 1 tab PO DAILY #30 10/20/17 10/15/17 Tamsulosin [Flomax] 0.4 mg PO DAILY #30 10/20/17 10/15/17 - Allergies Allergies/Adverse Reactions: Allergies Allergy/AdvReac Type Severity Reaction Status Date / Time pregabalin [From Lyrica] Allergy Unknown Verified 01/18/18 15:59 Sulfa (Sulfonamide Allergy Unknown Verified 01/18/18 15:59 Antibiotics) tetracycline Allergy Unknown Verified 01/18/18 15:59 - Social History Does the pt smoke?: No Smoking Status: Never smoker Does the pt drink ETOH?: No Does the pt have substance abuse?: No - Immunizations Immunizations are current?: No Immunizations: TDAP >10years/unknown - POLST Patient has POLST: No POLST Status: DNR PD ED PE NORMAL - Vitals Vital signs reviewed: Yes - General General: Other (He is alert and oriented to person only) - HEENT HEENT: Other (There is significant right-sided facial swelling at the angle of the jaw that is not cellulitic. He has cavities but none of his teeth appear particularly tender. There is mild trismus. There is no sublingual edema. 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 No: Alert and oriented X 3 Eye Opening: Spontaneous Motor: Obeys Commands Verbal: Confused GCS Score: 14 Results - Vitals Vitals: Vital Signs - 24 hr 01/18/18 01/18/18 15:55 17:50 Temperature 36.4 C L Heart Rate 55 L 112 H Respiratory 18 18 Rate Blood Pressure 165/58 H 167/68 H O2 Saturation 98 89 L Oxygen O2 Source [Without Activity] Room air O2 Source Room air - Labs Labs: Laboratory Tests 01/18/18 01/18/18 17:00 17:00 WBC 15.3 H RBC 4.14 L Hgb 9.5 L Hct 31.7 L MCV 76.4 L MCH 23.0 L MCHC 30.1 L RDW 20.0 H Plt Count 433 MPV 8.8 Neut # (Auto) 12.5 H Lymph # (Auto) 2.1 [place] # (Auto) 0.7 Eos # (Auto) 0.0 Baso # (Auto) 0.0 Absolute Nucleated RBC 0.00 Nucleated RBC % 0.0 Sodium 135 Potassium 2.3 L* Chloride 91 L Carbon Dioxide 30 Anion Gap 14.0 H BUN 34 H Creatinine 1.3 H Estimated GFR (MDRD) 52 L Glucose 367 H Calcium 9.0 PD MEDICAL DECISION MAKING - ED course ED course: 87-year-old gentleman with confusion and declining mental status presents with right facial swelling. Presumed parotitis on exam. Found to be significantly hypokalemic, repleted IV. Son notes that he was on potassium supplementation which the patient refused starting a few days ago. He does have an AICD in place and I was called into the room. At some point he feels like the AICD fired while in the department. The son did not want a workup of this. I discussed that potentially replacing the potassium would help fix recurrent shocks. They would like the AICD turned off. We called the [facility] and ascertained that is a [employer] device. He is confirmed to have parotitis on CT. For this he was administered Unasyn. Spoke with Dr. Parra for admission for severe hypokalemia, parotitis and the request to have [employer] turn off his AICD while in the hospital at 7:34 PM Departure - Departure Disposition: 66 [facility] DC/Xfer Clinical Impression: Parotitis, Facial cellulitis, Hypokalemia Inappropriate shocks from ICD (implantable cardioverter-defibrillator) Qualifiers: Encounter type: initial encounter Qualified Code(s): T82.198A - Other m echanical complication of other cardiac electronic device, initial encounter Condition: Stable
[2018-01-18 17:30] LABS: CREATININE 1.3 mg/dL (0.6-1.2)
[2018-01-18] MEDS ORDERED: POTASSIUM CHLOR 10 MEQ/100 ML 10 MEQ/100 ML BAG IV ONE (17:31)
[2018-01-18] MEDS ORDERED: POTASSIUM CHLOR 10 MEQ/100 ML 10 MEQ/100 ML BAG IV STA (17:31)
[2018-01-18 17:34] LABS: BASOPHILS % (AUTO) 0.2 %; EOSINOPHILS % (AUTO) 0.1 %; HGB - HEMOGLOBIN 9.5 g/dL (14.0-18.0); LYMPHOCYTES # (AUTO) 2.1 10^3/uL (1.5-3.5); LYMPHOCYTES % (AUTO) 13.7 %; MEAN CORPUSCULAR HGB CONC 30.1 g/dL (32.0-36.0); MEAN CORPUSCULAR VOLUME 76.4 fL (80.0-94.0); MEAN PLATELET VOLUME 8.8 fL (7.4-11.4); MONOCYTES # (AUTO) 0.7 10^3/uL (0.0-1.0); MONOCYTES % (AUTO) 4.5 %; NEUTROPHILS # (AUTO) 12.5 10^3/uL (1.5-6.6); NEUTROPHILS % (AUTO) 81.5 %; PLT - PLATELET COUNT 433 10^3/uL (130-450); RED BLOOD COUNT 4.14 10^6/uL (4.70-6.10); WHITE BLOOD COUNT 15.3 x10^3/uL (4.8-10.8)
[2018-01-18] MEDS ORDERED: IOVERSOL 320 100 ML VIAL IVP ONE (17:46)
[2018-01-18] MEDS ORDERED: AMPICILLIN/SULBACTAM 3 GM in SODIUM CHLORIDE 0.9% MINIBAG 100 ML IV STA (18:51)
--- NOTE | 2018-01-18 18:58 | CT Report ---
Reason: R facial swelling, ?parotitis Procedure Date: 01/18/2018 Accession Number: [id number] / [id number] Procedure: CT - Facial Bones W/ CPT Code: FULL RESULT: EXAM: CT MAXILLOFACIAL WITH CONTRAST EXAM DATE: 01/18/2018 06:11 PM. CLINICAL HISTORY: Right facial swelling, question parotitis. COMPARISONS: Head without 10/15/2017 2:52 PM. TECHNIQUE: Thin-section axial images were acquired of the face after administration of intravenous contrast. Post-processing: Coronal and sagittal reformats. Other: None. IV contrast: 80 cc Optiray 320. In accordance with CT protocol optimization, one or more of the following dose reduction techniques were utilized for this exam: automated exposure control, adjustment of mA and/or KV based on patient size, or use of iterative reconstructive technique. FINDINGS: Soft Tissue: Moderate fascial plane edema is seen surrounding the right parotid gland and physician ophthalmologist muscle. This extends inferiorly to overlie the right mandible. Central extension into the submandibular space is seen. Deep extension to the lateral aspect of the inferior oropharynx submucosal fat plane, inferior infratemporal fossa, and the retropharyngeal space is noted. No rim-enhancing fluid collection is seen. The left infratemporal fossa is unremarkable. Bilateral pterygopalatine fossa are unremarkable. Orbits:Symmetric and unremarkable. Note is made of bilateral lens removal. Bones: No fracture or bone lesion. Postoperative change is seen about the partially visualized cervical spine. ACDF is noted from C4-C7. Intervertebral fusion plugs with anterior metallic plate and anchoring screws are noted. Posterior decompression is seen with posterior fusion and Magallanes rods. Temporomandibular Joints: Mild subluxation is seen at the right TMJ. No significant degenerative change. Sinuses: No acute sinusitis. No mucosal thickening or fluid levels. Glands: Diffuse enlargement and inflammatory stranding is seen throughout the right parotid gland. No fluid collection is seen to suggest abscess. Lobular oval 3 mm calculus is seen in distal right parotid duct. No abnormal ductal dilatation is seen. Punctate calcifications are seen in the left parotid gland. No ductal dilatation. No solid or cystic mass. Fascial plane edema is seen about the right submandibular gland. No parenchymal density abnormality is seen. The left submandibular gland is unremarkable. Other: Vascular calcification is seen at the CCA bifurcation. Moderate vascular calcification is seen involving the intracranial ICA. IMPRESSION: 1. Right-sided parotiditis. Calculi are seen in distal left parotid duct. Enlargement and diffuse patchy enhancement is seen throughout the right parotid gland without abscess. 2. Extensive right neck and face cellulitis/inflammation. This is seen surrounding the parotid gland and sternocleidomastoid muscle, superficial to the mandible, and extending deep into the submandibular space, lateral pharyngeal wall, and retropharyngeal space. No rim-enhancing fluid collection is seen to suggest abscess. Critical result: Findings are discussed with referring physician, Dr. Kameron Rawls, on 01/18/2018 at 1850 hrs. RADIA
[2018-01-18] MEDS ORDERED: ONDANSETRON 4 MG/2 ML VIAL IVP PRN (19:39)
[2018-01-18] MEDS ORDERED: PROCHLORPERAZINE 10 MG/2 ML VIAL IVP PRN (19:39)
[2018-01-18] MEDS ORDERED: ZOLPIDEM 5 MG TABLET PO PRN (19:39)
[2018-01-18] MEDS ORDERED: SODIUM CHLORIDE FLUSH 0.9% 10 ML SYRINGE IVP PRN (19:39)
[2018-01-18] MEDS ORDERED: ACETAMINOPHEN 500 MG TABLET PO PRN (19:49)
[2018-01-18] MEDS ORDERED: HYDROcod/ACETAM 5/325 MG TABLET PO PRN (19:49)
[2018-01-18] MEDS ORDERED: CYCLOBENZAPRINE 10 MG TABLET PO PRN (19:49)
--- NOTE | 2018-01-18 20:15 | HISTORY & PHYSICAL EXAMINATION ---
Chief Complaint - Chief Complaint Chief Complaint: Pain and swelling of face History of Present Illness - Admitted From Admitted From:: [facility] - History Obtained From Records Reviewed: ED Records History obtained from: ED physician, and son Exam Limitations: Pt is demented and unable to provide history - History of Present Illness HPI Comment/Other: Pt is non-verbal and no family available at bedside. Hx is from ED MD and nurses, and records. Pt is an 87 y.o. male with PMH of dementia, CHF, hypothyroid, Type 2 DM, s/p AICD placement, brought in by son from correction after having pain and swelling in the R side of the face for the past 3 days, progressively getting worse. Pain has failed to be controlled with [place], so pt was brought to ED for evaluation. Dr Frederick ordered a facial CT showing a parotiditis with no abcess, but there were stones. He did explore but did not confirm removal of any stones. He was not febrile or in evidence of sepsis. There did not appear to be anything requiring surgical intervention, and due to the pt's ongoing dementia and poor baseline mental status, family did not want any agressive measures and requested medical management with abx and pain meds, with hospice referral after admission. He was also found to be hypokalemic at K 2.4 and had a single episode of firing of the ICD. Likely due to low K+. Family wants ICD turned off, and [employer] rep will apparently be able to do this in am. 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 : reports: Benign prostate hypertrophy, Retention, Chronic bladder infection, Indwelling catheter, Other (chronic S/P cath) HEENT: reports: Chronic vision loss, Chronic hearing loss Psych: reports: Anxiety Musculoskeletal: reports: Osteoarthritis Derm: reports: None MRSA Hx?: No - Past Surgical History Ortho: reports: Spine surgery Cardiovascular: reports: Coronary stent, Valve replacement, Pacemaker, AICD Derm: reports: Skin cancer surgery - Family & Social History Family History: Mother: , Father: , CAD, Sister: , Cancer Family History Comment/Other: The patient states that his mother in her 80's, from heart disease. His father in his 70's from CAD. He had a 1/2 sister who after stomach CA. 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 He was to his of 61 years, and she has since ~ 6 years ago after a carter with lung CA. They had 3 girls, and one son. The patient has been in and out of nursing facilities, and hospitals, but currently lives semi-privately with his son, Eric in his own apartment. He denies tobacco, alcohol, or illicit drug use in his life. He wishes to be a DNR. - Substance History Use: Uses substance without health or social issues: NONE - POLST Patient has POLST: No POLST Status: DNR Meds/Allgy - Home Medications Home Medications: Ambulatory Orders Medication Instructions Recorded Confirmed RX: Acetaminophen [Pain Reliever] 500 mg PO Q6H PRN 05/31/17 10/16/17 RX: Clopidogrel [Plavix] 75 mg PO DAILY 05/31/17 10/15/17 RX: Fludrocortisone [Florinef] 0.1 mg PO DAILY 05/31/17 10/15/17 RX: HYDROcod/ACETAM 5/325 [[place] 1 - 2 ea PO Q6H PRN #15 tablet 05/31/1709/23 5/325] RX: Levothyroxine Sodium 75 mcg PO DAILY 05/31/17 10/15/17 [Synthroid] RX: Aspirin [Aspirin EC] 81 mg PO DAILY 10/15/17 10/15/17 RX: Famotidine [Pepcid] 20 mg PO ONCE 10/15/17 10/15/17 RX: Torsemide [Demadex] 20 mg PO BID 10/15/17 10/15/17 RX: Ampicillin Trihydrate 500 mg PO TID 8 Days #24 capsule 10/20/17 RX: Bisacodyl [Dulcolax] 10 mg PO DAILY tablet 10/20/17 RX: Cyclobenzaprine [Flexeril] 5 mg PO TID PRN tablet 10/20/17 RX: HYDROcod/ACETAM 5/325 [[place] 1 tab PO Q4HR PRN #42 tablet 10/20/17 5/325] RX: Insulin Glargine [Lantus 15 unit SUBQ QPM #3 pen 10/20/17 Solostar] RX: Metoprolol Succinate [Toprol 25 mg PO BID #60 tablet 10/20/17 Xl] RX: Multivitamin W/Minerals 1 tab PO DAILYWM #30 tablet 10/20/17 [Theragran M] RX: Psyllium [Metamucil] 1 pkt PO DAILY #30 10/20/17 10/15/17 RX: Sennosides [Natural Laxative] 1 tab PO DAILY #30 10/20/17 10/15/17 RX: Tamsulosin [Flomax] 0.4 mg PO DAILY #30 10/20/17 10/15/17 Saccharomyces Boulardii [Florastor] 250 mg PO BID #90 capsule 10/20/17 - Allergies Allergies/Adverse Reactions: Allergies Allergy/AdvReac Type Severity Reaction Status Date / Time pregabalin [From Lyrica] Allergy Unknown Verified 01/18/18 15:59 Sulfa (Sulfonamide Allergy Unknown Verified 01/18/18 15:59 Antibiotics) tetracycline Allergy Unknown Verified 01/18/18 15:59 Review of Systems - Constitutional Constitutional: reports: Fatigue, Malaise, Weakness, Poor appetite. denies: Fever, Chills, Night sweats - Eyes Eyes: reports: Pain - Ears, Nose & Throat Ears, Nose & Throat: reports: Mouth lesions, Other (Facial pain, R side). denies: Nasal pain, Bleeding gums, Dental pain - Cardiovascular Cariovascular: reports: Irregular heart rate - Respiratory Respiratory: denies: Cough - Gastrointestinal Gastrointestinal: denies: Abdominal pain - Neurological Neurological: reports: General weakness, Memory problems, Incoordination - Psychiatric Psychiatric: reports: Other (Poor memory) Prior Level of Functionality: Requiring assistance, living in correction. Exam - Vital Signs Vital Signs: Vital Signs x48h Temp Pulse Resp BP Pulse Ox 01/18/18 17:50 112 H 18 167/68 H 89 L 01/18/18 15:55 36.4 C L 55 L 18 165/58 H 98 - Physical Exam General Appearance: positive: No acute distress Eyes Bilateral: positive: Normal inspection ENT: positive: Other (R sided facial swelling with TTP, buccal mucuosa edema R side, no purulent drainage) Neck: positive: Thyroid nml, No JVD, Trachea midline, Lymphadenopathy (R), Swelling/bruising. negative: Thyromegaly Respiratory: positive: Chest non-tender, No respiratory distress, Breath sounds nml Cardiovascular: positive: Regular rate & rhythm, No murmur, No gallop Peripheral Pulses: positive: 2+ Abdomen: positive: Non-tender, No organomegaly, Nml bowel sounds Skin: positive: Warm, Other (facial erythema, R side, w/ TTP and induration but not warm to touch. + BL heel uclers, stage 1-2 and L MTPJ ulceration. No evidenceo of infection of the ulcers.) Extremities: positive: Non-tender, Full ROM Neurologic/Psychiatric: positive: CN's nml (2-12), Disoriented to person, Disoriented to place, Disoriented to time, Other (Poor cognition) Sepsis Event Note (H) - Evaluation Current Stage of Sepsis: Ruled out Conclusion/Plan - Problem List (1) Parotitis Conclusion/Plan: Confirmed on CT. Nothing surgical is seen, and in any case, pt and family decline surgical treatment, in fact, wanting placement in hospice (referral placed for am). Will cont IV Unasyn q 6 hours and manage pain as needed and trend WBC (currently about 15), watch for fevers, and other clinical markers for improvement. Can D/C home on abx if swelling is improved, and WBC is trending down, likely after 48 hours. (2) Facial cellulitis Conclusion/Plan: Due to #1 - see above (3) Hypokalemia Conclusion/Plan: Cause is unclear, possibly due to poor PO intake in setting of diuretics. Will cont ED initiated replacement, and maintain PO K and fu labs tonight and in am. (4) Inappropriate shocks from ICD (implantable cardioverter-defibrillator) Conclusion/Plan: Per ED physician, pt appeared to have had a shock (witnessed by family) but was not on monitor due to goals of care. This was likely related to low K+. Pt's family want it turned off - will contact [employer] in the am and requesting this. No telemetry needed. Qualifiers: Encounter type: initial encounter Qualified Code(s): T82.198A - Other mechanical complication of other cardiac electronic device, initial encounter (5) BPH (benign prostatic hyperplasia) Conclusion/Plan: Stable - cont home meds Qualifiers: Lower urinary tract symptom presence: symptoms present Lower urinary tract symptom detail: urinary hesitancy Qualified Code(s): N40.1 - Benign prostatic hyperplasia with lower urinary tract symptoms; R39.11 - Hesitancy of micturition (6) CHF (congestive heart failure) Conclusion/Plan: Appears to be euvolemic. Will cont home meds, and ensure adequate K replacement. (7) Cervical radiculopathy Conclusion/Plan: Currently on norco at home - will start Morphine for #1 so hold norco, but cont home flexeril. (8) Diabetes mellitus type 2 in nonobese Conclusion/Plan: Given that this pt has goals of care leaning toward hospice, I don't see a reason to limit him to a diabetic diet, and will allow him to eat anything he likes. However, will cont Lantus and sliding scale for now. (9) Lumbar back pain Conclusion/Plan: As above, morphine ordered for #1 - so holding [place]. Will cont home Flexeril - Lab Results Fish Bones: 01/18/18 17:00 01/18/18 17:00 - Diagnostic Imaging Results Diagnostic Imaging Results: positive: Final report reviewed Core Measures - Anticipated LOS I expect patient to be DC'd or transferred within 96 hours.: Yes - DVT/VTE - Prophylaxis VTE/DVT Device ordered at admit?: Yes VTE/DVT Prophylaxis med ordered at admit?: Yes
[2018-01-18 20:17] LABS: HEMOGLOBIN A1C 0.58 g/dL; HEMOGLOBIN A1C % 7.5 % (4.6-6.2)
[2018-01-18] MEDS ORDERED: POTASSIUM CHLORIDE 20 MEQ TABLET PO SCH (20:27)
[2018-01-18] MEDS ORDERED: FAMOTIDINE 20 MG TABLET PO SCH (21:00)
[2018-01-18] MEDS: MORPHINE 2 MG/ML CARPUJECT IVP PRN (21:22)
[2018-01-18] MEDS: SACCHAROMYCES BOULARDII 250 MG CAPSULE PO SCH (21:59)
[2018-01-18] MEDS: METOPROLOL SUCCINATE 50 MG TABLET PO SCH (21:59)
[2018-01-18] MEDS: TORSEMIDE 20 MG TABLET PO SCH (22:00)
[2018-01-18] MEDS: NS W/20 MEQ KCL 1,000 ML IV SCH (22:26)
[2018-01-18] MEDS: HEPARIN 5,000 UNIT/ML VIAL SUBQ SCH (22:39)
[2018-01-18] MEDS: INSULIN GLARGINE 300 UNIT/3 ML PEN SUBQ SCH (22:40)
[2018-01-18] MEDS: INSULIN REGULAR HUMAN 100 UNIT/1 ML 10 ML MDV SUBQ SCH (22:41)
[2018-01-19] MEDS ORDERED: INSULIN REGULAR HUMAN 100 UNIT/1 ML 10 ML MDV SUBQ SCH
[2018-01-19] MEDS: SODIUM CHLORIDE FLUSH 0.9% 10 ML SYRINGE IVP SCH ×3 (00:03→15:58)
[2018-01-19] MEDS: AMPICILLIN/SULBACTAM 3 GM in SODIUM CHLORIDE 0.9% MINIBAG 100 ML IV SCH ×4 (03:25→21:24)
[2018-01-19 05:47] LABS: HGB - HEMOGLOBIN 9.2 g/dL (14.0-18.0); RED CELL DISTRIBUTION WIDTH 19.9 % (12.0-15.0)
[2018-01-19 05:48] LABS: MEAN CORPUSCULAR HEMOGLOBIN 23.1 pg (27.0-31.0); MEAN PLATELET VOLUME 8.4 fL (7.4-11.4); RED BLOOD COUNT 3.99 10^6/uL (4.70-6.10); WHITE BLOOD COUNT 28.2 x10^3/uL (4.8-10.8)
[2018-01-19 06:00] LABS: CALCIUM 8.9 mg/dL (8.5-10.3); CREATININE 1.2 mg/dL (0.6-1.2)
[2018-01-19] MEDS ORDERED: POTASSIUM CHLORIDE INJ 40 MEQ in SODIUM CHLORIDE 0.9% 480 ML IV ONE (06:32)
[2018-01-19] MEDS: MORPHINE 2 MG/ML CARPUJECT IVP PRN ×3 (06:37→18:01)
[2018-01-19] MEDS: INSULIN REGULAR HUMAN 100 UNIT/1 ML 10 ML MDV SUBQ SCH ×3 (06:53→18:05)
[2018-01-19] MEDS ORDERED: POTASSIUM CHLORIDE 20 MEQ TABLET PO SCH (08:06)
--- NOTE | 2018-01-19 08:48 | ADVANCE CARE PLANNING NOTE ---
Advance Care Planning - Date/Time Date: 01/19/18
[2018-01-19] MEDS: HEPARIN 5,000 UNIT/ML VIAL SUBQ SCH ×2 (09:20→21:24)
[2018-01-19] MEDS: MULTIVITAMIN W/MINERALS TABLET PO SCH (09:54)
[2018-01-19] MEDS: LEVOTHYROXINE 75 MCG TABLET PO SCH (09:54)
[2018-01-19] MEDS: ASPIRIN EC 81 MG TABLET PO SCH (09:55)
[2018-01-19] MEDS: FAMOTIDINE 20 MG TABLET PO SCH (09:55)
[2018-01-19] MEDS: BISACODYL 5 MG TABLET PO SCH (09:55)
[2018-01-19] MEDS: CLOPIDOGREL 75 MG TABLET PO SCH (09:55)
[2018-01-19] MEDS: FLUDROCORTISONE 0.1 MG TABLET PO SCH (09:56)
[2018-01-19] MEDS: SACCHAROMYCES BOULARDII 250 MG CAPSULE PO SCH ×2 (09:56→21:13)
[2018-01-19] MEDS: SENNA 8.6 MG TABLET PO SCH (09:56)
[2018-01-19] MEDS: POLYETHYLENE GLYCOL 3350 17 GM PACKET PO SCH (09:56)
[2018-01-19] MEDS: PSYLLIUM PACKET PO SCH (09:56)
[2018-01-19] MEDS: METOPROLOL SUCCINATE 50 MG TABLET PO SCH ×2 (09:56→21:13)
[2018-01-19] MEDS: TORSEMIDE 20 MG TABLET PO SCH ×2 (09:57→21:13)
[2018-01-19] MEDS: TAMSULOSIN 0.4 MG CAPSULE PO SCH (09:57)
[2018-01-19] MEDS: NS W/20 MEQ KCL 1,000 ML IV SCH (15:58)
--- NOTE | 2018-01-19 17:11 | PROVIDER PROGRESS NOTE ---
Subjective - Prog Note Date Prog Note Date: 01/19/18 - Subjective Pt reports feeling: No change Subjective: pt is aphasia, and lethargic. Per pt's family request, pt is for hospice care. Hospice/palliative care was referred. Per pt's family request to turn off pt's ICD, We called [facility]. The [facility] danilo did come to turn off pt's ICD. plan pt d/c to [facility] hospice care team on tomorrow, per licensed social worker report Current Medications - Current Medications Current Medications: Active Medications Acetaminophen (Tylenol) 500 mg PO Q6H PRN PRN Reason: PAIN Hydrocodone Bitart/Acetaminophen ([place] 5/325) 1 tab PO Q4HR PRN PRN Reason: PAIN Aspirin (Ecotrin) 81 mg PO DAILY [facility] Last Admin: 01/19/18 09:55 Dose: Not Given Bisacodyl (Dulcolax) 10 mg PO DAILY [facility] Last Admin: 01/19/18 09:55 Dose: Not Given Clopidogrel Bisulfate (Plavix) 75 mg PO DAILY [facility] Last Admin: 01/19/18 09:55 Dose: Not Given Cyclobenzaprine HCl (Flexeril) 5 mg PO TID PRN PRN Reason: Spasms Famotidine (Pepcid) 20 mg PO DAILY [facility] Last Admin: 01/19/18 09:55 Dose: Not Given Fludrocortisone Acetate (Florinef) 0.1 mg PO DAILY [facility] Last Admin: 01/19/18 09:56 Dose: Not Given Heparin Sodium (Porcine) () 5,000 unit SUBQ BID [facility] Last Admin: 01/19/18 09:20 Dose: 5,000 unit Ampicillin Sodium/Sulbactam (Sodium 3 gm/ Sodium Chloride) 100 mls @ 200 mls/hr IV Q6H [facility] Last Infusion: 01/19/18 16:35 Dose: Infused Potassium Chloride/Sodium Chloride (Normal Saline 0.9% W/20 Meq Kcl) 1,000 mls @ 75 mls/hr IV .[id number] [facility] Last Admin: 01/19/18 15:58 Dose: 75 mls/hr Insulin Glargine (Lantus Solostar) 15 unit SUBQ QPM [facility] Last Admin: 01/18/18 22:40 Dose: 15 unit Insulin Human Regular (Novolin R) 1 - 5 unit SUBQ Q6HR [facility]; Protocol Last Admin: 01/19/18 12:39 Dose: 3 unit Levothyroxine Sodium (Synthroid) 75 mcg PO QDBREAKFAST [facility] Last Admin: 01/19/18 09:54 Dose: Not Given Metoprolol Succinate (Toprol Xl) 25 mg PO BID [facility] Last Admin: 01/19/18 09:56 Dose: Not Given Morphine Sulfate (Morphine (Carpuject)) 3 mg IVP Q2HR PRN PRN Reason: Pain 8 to 10 Last Admin: 01/19/18 12:49 Dose: 3 mg Multivitamins/Minerals (Theragran M) 1 tab PO DAILYWM [facility] Last Admin: 01/19/18 09:54 Dose: Not Given Ondansetron HCl (Zofran Inj) 4 mg IVP Q6HR PRN PRN Reason: Nausea / Vomiting Polyethylene Glycol (Miralax) 17 gm PO DAILY [facility] Last Admin: 01/19/18 09:56 Dose: Not Given Prochlorperazine Edisylate (Compazine Inj) 10 mg IVP Q6HR PRN PRN Reason: Nausea / Vomiting Psyllium Hydrophilic Mucilloid (Metamucil) 1 packet PO DAILY [facility] Last Admin: 01/19/18 09:56 Dose: Not Given Saccharomyces Boulardii (Florastor) 250 mg PO BID [facility] Last Admin: 01/19/18 09:56 Dose: Not Given Senna (Senokot) 8.6 mg PO DAILY [facility] Last Admin: 01/19/18 09:56 Dose: Not Given Sodium Chloride (Normal Saline Flush 0.9%) 10 ml IVP PRN PRN PRN Reason: NEEDED PER PROVIDER ORDERS Sodium Chloride (Normal Saline Flush 0.9%) 10 ml IVP 0100,0900,1700 [facility] Last Admin: 01/19/18 15:58 Dose: Not Given Tamsulosin HCl (Flomax) 0.4 mg PO DAILY [facility] Last Admin: 01/19/18 09:57 Dose: Not Given Torsemide (Torsemide) 20 mg PO BID [facility] Last Admin: 01/19/18 09:57 Dose: Not Given Zolpidem Tartrate (Ambien) 5 mg PO QPM PRN PRN Reason: Insomnia Acetaminophen [Pain Reliever] 500 mg PO Q6H PRN 05/31/17 Clopidogrel [Plavix] 75 mg PO DAILY 05/31/17 Fludrocortisone [Florinef] 0.1 mg PO DAILY 05/31/17 Levothyroxine Sodium [Synthroid] 75 mcg PO DAILY 05/31/17 Aspirin [Aspirin EC] 81 mg PO DAILY 10/15/17 Famotidine [Pepcid] 20 mg PO ONCE 10/15/17 Torsemide [Demadex] 20 mg PO BID 10/15/17 Methenamine Hippurate 1 gm PO BID 01/19/18 Potassium Chloride 20 meq PO DAILY 01/19/18 Objective - Vital Signs/Intake & Output Reviewed Vital Signs: Yes Vital Signs: Vital Signs x48h Temp Pulse Resp BP Pulse Ox 01/19/18 15:55 37 C 52 L 16 134/57 H 85 L Intake & Output: Intake & Output 01/16/18 01/17/18 01/18/18 01/19/18 23:59 23:59 23:59 23:59 Intake Total 1815 1800 Output Total 550 725 Balance 1265 1075 - Objective General Appearance: positive: No acute distress, Alert, Lethargic Eyes Bilateral: positive: Normal inspection, PERRL, No lid inflammation, Conjunctivae nml ENT: positive: ENT inspection nml, Pharynx nml, No signs of dehydration. negative: Purulent nasal drainage Neck: positive: Nml inspection, Thyroid nml, No JVD, Trachea midline. negative: Thyromegaly, Lymphadenopathy (R), Lymphadenopathy (L), Stiff neck, Swelling/bruising, Tracheal deviation Respiratory: positive: Chest non-tender, No respiratory distress, Breath sounds nml. negative: Wheezes, Rales, Rhonchi Cardiovascular: positive: Regular rate & rhythm, No murmur, No gallop, Irregularly irregular. negative: Extrasystoles, Tachycardia, Bradycardia, Systolic murmur, Diastolic murmur Peripheral Pulses: 2+ Radial (R), 2+ Radial (L), 2+ Dorsalis pedis (R), 2+ Dorsalis pedis (L) Abdomen: positive: Non-tender, No organomegaly, Nml bowel sounds, No distention. negative: Tenderness, Guarding, Rebound Back: positive: Nml inspection Skin: positive: Warm, Dry. negative: Cyanosis, Diaphoresis, Pallor Extremities: positive: Non-tender. negative: Calf tenderness, Jose De Jesus's sign/cords Neurologic/Psychiatric: negative: Facial droop - Lab Results Fish Bones: 01/19/18 05:30 01/19/18 14:10 Other Labs: Lab Results x24hrs 01/19/18 01/19/18 01/19/18 Range/Units 14:10 05:30 05:30 WBC 28.2 H (4.8-10.8) x10^3/uL RBC 3.99 L (4.70-6.10) 10^6/uL Hgb 9.2 L (14.0-18.0) g/dL Hct 30.8 L (42.0-52.0) % MCV 77.0 L (80.0-94.0) fL MCH 23.1 L (27.0-31.0) pg MCHC 30.0 L (32.0-36.0) g/dL RDW 19.9 H (12.0-15.0) % Plt Count 381 (130-450) 10^3/uL MPV 8.4 (7.4-11.4) fL Neut # (Auto) (1.5-6.6) 10^3/uL Lymph # (Auto) (1.5-3.5) 10^3/uL Clinch # (Auto) (0.0-1.0) 10^3/uL Eos # (Auto) (0.0-0.7) 10^3/uL Baso # (Auto) (0.0-0.1) 10^3/uL Absolute Nucleated RBC x10^3/uL Nucleated RBC % /100WBC Sodium 144 (135-145) mmol/L Potassium 2.9 L 2.5 L* (3.5-5.0) mmol/L Chloride 100 L (101-111) mmol/L Carbon Dioxide 35 H (21-32) mmol/L Anion Gap 9.0 (6-13) BUN 27 H (6-20) mg/dL Creatinine 1.2 (0.6-1.2) mg/dL Estimated GFR (MDRD) 57 L (>89) Glucose 313 H (70-100) mg/dL Glycated Hemoglobin (4.6-6.2) % Estim Average Glucose (70-100) Calcium 8.9 (8.5-10.3) mg/dL 01/18/18 01/18/18 01/18/18 Range/Units 17:00 17:00 17:00 WBC (4.8-10.8) x10^3/uL RBC (4.70-6.10) 10^6/uL Hgb (14.0-18.0) g/dL Hct (42.0-52.0) % MCV (80.0-94.0) fL MCH (27.0-31.0) pg MCHC (32.0-36.0) g/dL RDW (12.0-15.0) % Plt Count (130-450) 10^3/uL MPV (7.4-11.4) fL Neut # (Auto) (1.5-6.6) 10^3/uL Lymph # (Auto) (1.5-3.5) 10^3/uL Clinch # (Auto) (0.0-1.0) 10^3/uL Eos # (Auto) (0.0-0.7) 10^3/uL Baso # (Auto) (0.0-0.1) 10^3/uL Absolute Nucleated RBC x10^3/uL Nucleated RBC % /100WBC Sodium 135 (135-145) mmol/L Potassium 2.3 L* 2.3 L* (3.5-5.0) mmol/L Chloride 91 L (101-111) mmol/L Carbon Dioxide 30 (21-32) mmol/L Anion Gap 14.0 H (6-13) BUN 34 H (6-20) mg/dL Creatinine 1.3 H (0.6-1.2) mg/dL Estimated GFR (MDRD) 52 L (>89) Glucose 367 H (70-100) mg/dL Glycated Hemoglobin 7.5 H (4.6-6.2) % Estim Average Glucose 169 H (70-100) Calcium 9.0 (8.5-10.3) mg/dL 01/18/18 Range/Units 17:00 WBC 15.3 H (4.8-10.8) x10^3/uL RBC 4.14 L (4.70-6.10) 10^6/uL Hgb 9.5 L (14.0-18.0) g/dL Hct 31.7 L (42.0-52.0) % MCV 76.4 L (80.0-94.0) fL MCH 23.0 L (27.0-31.0) pg MCHC 30.1 L (32.0-36.0) g/dL RDW 20.0 H (12.0-15.0) % Plt Count 433 (130-450) 10^3/uL MPV 8.8 (7.4-11.4) fL Neut # (Auto) 12.5 H (1.5-6.6) 10^3/uL Lymph # (Auto) 2.1 (1.5-3.5) 10^3/uL Clinch # (Auto) 0.7 (0.0-1.0) 10^3/uL Eos # (Auto) 0.0 (0.0-0.7) 10^3/uL Baso # (Auto) 0.0 (0.0-0.1) 10^3/uL Absolute Nucleated RBC 0.00 x10^3/uL Nucleated RBC % 0.0 /100WBC Sodium (135-145) mmol/L Potassium (3.5-5.0) mmol/L Chloride (101-111) mmol/L Carbon Dioxide (21-32) mmol/L Anion Gap (6-13) BUN (6-20) mg/dL Creatinine (0.6-1.2) mg/dL Estimated GFR (MDRD) (>89) Glucose (70-100) mg/dL Glycated Hemoglobin (4.6-6.2) % Estim Average Glucose (70-100) Calcium (8.5-10.3) mg/dL ABX Reporting Has patient been on IV antibiotics over the past 48 hours?: Yes Sepsis Event Note (H) - Evaluation Current Stage of Sepsis: Ruled out Assessment/Plan - Problem List (1) Parotitis Impression: continue IVF and IV antibiotics, until tomorrow hospice care, per family request (2) hospice care per pt's family request, plan pt to d/c with hospice care on tomorrow (3) Facial cellulitis continue antibiotics (4) Hypokalemia continue replacement of potassium, will check potassium level on today afternoon. 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 cont home meds, followup tomorrow hospice care. (8) Cervical radiculopathy Conclusion/Plan: continue pain control (9) Diabetes mellitus type 2 in nonobese Conclusion/Plan: resume home Lantus sliding scale. hypoglycemia protocol (10) Lumbar back pain stable, continue pain control
--- NOTE | 2018-01-19 17:57 | CONSULTATION NOTE ---
Palliative Care Consultation - Referral Referring Provider: Amilcar MARCANO Time of Visit: 930-10; [id number] Referral setting: Hospitalized patient Referral Reason: Failure to Thrive/Goals of Care - Information Sources Records reviewed: Previous records reviewed History/Review of Systems obtained from: Family (spoke with son Eric; review of medical records) Exam limitations: Clinical condition (patient nonresponsive) - History of Present Illness Brief History of Present Illness: This is an 87-year-old gentleman who presents to [facility] after several days of decreased level of consciousness, increasing right sided facial swelling and pain, And was found to have parotiditis with no abscess. He has escalating white blood cell count, presented with severe hypokalemia, with the goal of this admit to address acute discomfort and transition home with hospice. Patient has had a fairly rapid decline over the last several months, his last admit [facility] Was after an episode of syncope, and found to have a UTI. On discharge he went to [facility], where he would not participate in physical therapy, he ended up at [facility] 12/03-12/04 with a ulcer of right foot and cellulitis. At that point in time he was discharged to [facility], again with little improvement, and discharged home to the care of his son. At that time there was discussion of way benefits and burdens of transitioning to hospice versus home health, the patient was declining, is mostly been bedbound the last couple weeks, patient was somewhat ambiguous about signing up for hospice so went with [facility]. Unfortunately patient is continued to decline with less appetite, dehydration, fluctuating mental status, and now presenting with acute processes of the parotiditis and hypokalemia. Of concern was also his AICD fired, it appears that this is happened in the past as well. Patient has a long extensive history of coronary artery disease, multiple stent placement, peripheral vascular disease, COPD, GERD, benign prostate hypertrophy with suprapubic catheter, CKD disease stage III, diabetes type 2, aortic valve replacement, and chronic bladder infections as well as chronic osteomyelitis. Palliative care to assist family in transition to comfort and hospice care. Patient unable to participate in exam or decision making at this point in time, patient's family wishes to bring him home with hospice. Medical/Surgical History - Past Medical History Cardiovascular: reports: Congestive heart failure, Hypertension, High cholesterol, Coronary artery disease, Peripheral Vascular Disease, Deep vein thrombosis, [place], Atrial fibrillation, Murmur, Arrhythmia, Valve disorder, Other Respiratory: reports: COPD, Emphysema Neuro: CVA Endocrine/Autoimmune: reports: Type 2 diabetes, HyPOthyroidism GI: reports: GERD, Other (bowel incontinence) : reports: Benign prostate hypertrophy, Retention, Chronic bladder infection, Indwelling catheter (suprapubic) HEENT: reports: Chronic vision loss, Chronic hearing loss Psych: reports: Anxiety Musculoskeletal: reports: Osteoarthritis Derm: reports: Other (diabetic ulcers) MRSA Hx?: No - Past Surgical History Ortho: reports: Spine surgery Cardiovascular: reports: Coronary stent, Valve replacement, Pacemaker, AICD Derm: reports: Skin cancer surgery - Substance History Use: Uses substance without health or social issues: NONE Social History - Living Situation Living arrangement: At home Living Situation: With family Support System: Patient's son Eric and his have been caring for patient at home, patient has been in and out of hospitals and nursing homes fairly intensely these last couple years. His daughter is coming from [place], and is expected to arrive tomorrow at 5 PM here in [place]. Family History - Family History Family History: Mother: , Father: , CAD, Sister: , Cancer, Other family: Alive and Well ( of lung cancer with hospice 6 years ago) Medications/Allergies - Medications Active Medication List: Active Medications Acetaminophen (Tylenol) 500 mg PO Q6H PRN PRN Reason: PAIN Hydrocodone Bitart/Acetaminophen ([place] 5/325) 1 tab PO Q4HR PRN PRN Reason: PAIN Aspirin (Ecotrin) 81 mg PO DAILY [facility] Last Admin: 01/19/18 09:55 Dose: Not Given Bisacodyl (Dulcolax) 10 mg PO DAILY [facility] Last Admin: 01/19/18 09:55 Dose: Not Given Clopidogrel Bisulfate (Plavix) 75 mg PO DAILY [facility] Last Admin: 01/19/18 09:55 Dose: Not Given Cyclobenzaprine HCl (Flexeril) 5 mg PO TID PRN PRN Reason: Spasms Famotidine (Pepcid) 20 mg PO DAILY [facility] Last Admin: 01/19/18 09:55 Dose: Not Given Fludrocortisone Acetate (Florinef) 0.1 mg PO DAILY [facility] Last Admin: 01/19/18 09:56 Dose: Not Given Heparin Sodium (Porcine) () 5,000 unit SUBQ BID [facility] Last Admin: 01/19/18 09:20 Dose: 5,000 unit Ampicillin Sodium/Sulbactam (Sodium 3 gm/ Sodium Chloride) 100 mls @ 200 mls/hr IV Q6H [facility] Last Infusion: 01/19/18 16:35 Dose: Infused Potassium Chloride/Sodium Chloride (Normal Saline 0.9% W/20 Meq Kcl) 1,000 mls @ 75 mls/hr IV .[id number] [facility] Last Admin: 01/19/18 15:58 Dose: 75 mls/hr Insulin Glargine (Lantus Solostar) 15 unit SUBQ QPM [facility] Last Admin: 01/18/18 22:40 Dose: 15 unit Insulin Human Regular (Novolin R) 1 - 5 unit SUBQ Q6HR [facility]; Protocol Last Admin: 01/19/18 12:39 Dose: 3 unit Levothyroxine Sodium (Synthroid) 75 mcg PO QDBREAKFAST [facility] Last Admin: 01/19/18 09:54 Dose: Not Given Metoprolol Succinate (Toprol Xl) 25 mg PO BID [facility] Last Admin: 01/19/18 09:56 Dose: Not Given Morphine Sulfate (Morphine (Carpuject)) 3 mg IVP Q2HR PRN PRN Reason: Pain 8 to 10 Last Admin: 01/19/18 12:49 Dose: 3 mg Multivitamins/Minerals (Theragran M) 1 tab PO DAILYWM [facility] Last Admin: 01/19/18 09:54 Dose: Not Given Ondansetron HCl (Zofran Inj) 4 mg IVP Q6HR PRN PRN Reason: Nausea / Vomiting Polyethylene Glycol (Miralax) 17 gm PO DAILY [facility] Last Admin: 01/19/18 09:56 Dose: Not Given Prochlorperazine Edisylate (Compazine Inj) 10 mg IVP Q6HR PRN PRN Reason: Nausea / Vomiting Psyllium Hydrophilic Mucilloid (Metamucil) 1 packet PO DAILY [facility] Last Admin: 01/19/18 09:56 Dose: Not Given Saccharomyces Boulardii (Florastor) 250 mg PO BID [facility] Last Admin: 01/19/18 09:56 Dose: Not Given Senna (Senokot) 8.6 mg PO DAILY [facility] Last Admin: 01/19/18 09:56 Dose: Not Given Sodium Chloride (Normal Saline Flush 0.9%) 10 ml IVP PRN PRN PRN Reason: NEEDED PER PROVIDER ORDERS Sodium Chloride (Normal Saline Flush 0.9%) 10 ml IVP 0100,0900,1700 [facility] Last Admin: 01/19/18 15:58 Dose: Not Given Tamsulosin HCl (Flomax) 0.4 mg PO DAILY [facility] Last Admin: 01/19/18 09:57 Dose: Not Given Torsemide (Torsemide) 20 mg PO BID [facility] Last Admin: 01/19/18 09:57 Dose: Not Given Zolpidem Tartrate (Ambien) 5 mg PO QPM PRN PRN Reason: Insomnia Acetaminophen [Pain Reliever] 500 mg PO Q6H PRN 05/31/17 Clopidogrel [Plavix] 75 mg PO DAILY 05/31/17 Fludrocortisone [Florinef] 0.1 mg PO DAILY 05/31/17 Levothyroxine Sodium [Synthroid] 75 mcg PO DAILY 05/31/17 Aspirin [Aspirin EC] 81 mg PO DAILY 10/15/17 Famotidine [Pepcid] 20 mg PO ONCE 10/15/17 Torsemide [Demadex] 20 mg PO BID 10/15/17 Methenamine Hippurate 1 gm PO BID 01/19/18 Potassium Chloride 20 meq PO DAILY 01/19/18 - Allergies Allergies/Adverse Reactions: Allergies Allergy/AdvReac Type Severity Reaction Status Date / Time pregabalin [From Lyrica] Allergy Unknown Verified 01/18/18 15:59 Sulfa (Sulfonamide Allergy Unknown Verified 01/18/18 15:59 Antibiotics) tetracycline Allergy Unknown Verified 01/18/18 15:59 Review of Systems - Constitutional Constitutional: reports: Weakness, Poor appetite, Weight loss - Ears, Nose & Throat Ears, Nose & Throat: reports: Hearing loss - Cardiovascular Cardiovascular: reports: Decr. exercise tolerance - Genitourinary Genitourinary: reports: Other (s/p catheter) - Musculoskeletal Musculoskeletal: reports: Other (has been bedbound for aobut 2 weeks since disch arge from [facility]) - Other Findings Other Findings: patient unable to participate in ROS; information from son included in HPI Physical Exam - Vital Signs Vital Signs: Vital Signs x48h Temp Pulse Resp BP Pulse Ox 01/19/18 15:55 37 C 52 L 16 134/57 H 85 L - Physical Exam General Appearance: positive: Mild distress Eyes Bilateral: positive: Other (eyes closed;) ENT: positive: Dry mucous membranes, Other (swelling in right side of face; full and hard; pain signs when examined) Neck: positive: Trachea midline Cardiovascular: positive: Irregular, Systolic murmur Respiratory: positive: Rhonchi Abdomen: positive: Soft, Other (noted suprapubic catheter) Skin: positive: Pallor, Dryness, Bruising, Other (right side of face with dull pink spread through cheek and swollen neck area) Extremities: positive: No pedal edema, Other (contractures noted in toes/feet) Neurologic/Psychiatric: positive: Other (unresponsive except to painful stimuli; intermittent moaning) Palliative Care - POLST Patient has POLST: Yes POLST Status: DNR, Selective Treatment (redid with son on phone/left copy to sign with comfort measures) Performance Status: Patient has had ongoing functional decline, they do have a hospital bed at home, has been receiving home health through [facility]. Has been able to self feed otherwise is dependent for all ADLs. Current PPS 10% - Palliative Care Discussion: Patient unable to participate in conversation, reviewed with son regarding goals of care. Reports patient has had several referrals to hospice, but patient is not been accepting her prognosis, has been quite ambiguous. On some days he wants to just give it all up and other days he wants to continue. Reports he has always been "squeaky wheel" has fired multiple physicians over the years if he is not given the answers he wants, though he does not and has not often followed advice. Son reports he hates being in the hospital, though patient if he is not currently awake and unaware of his surroundings, comfort care and in the hospital would be acceptable. He is hoping that he will last until his sister gets here tomorrow afternoon at 5 PM. In agreement of goals at this point in time it is to treat the infection to see if we can improve his comfort, we did discuss the patient given his frail status and significant decline may not respond to the antibiotics. Erci and his have been part of caring for his mother 7 years ago on hospice. He does understand the hospice support, that it is not providing 24-hour care but supporting family in this context. Eric has up to this point in time allow patient to make his decisions, though has been quite aware his father is continued to decline and this is not unexpected. 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 Is also important to the son to make sure we get the AICD turned off as well as not to prolong his suffering. We did discuss in the context of goals the SAMMIE ST form, we would transition it to comfort measures only with the goal for him to return home or have a at home, though if patient is imminently transitioning a in the hospital if patient is not aware is acceptable Results - Lab Results Lab results reviewed: Yes Fish Bones: 01/19/18 05:30 01/19/18 14:10 Lab and Imaging Results: Lab Results x24hrs 01/19/18 01/19/18 01/19/18 Range/Units 14:10 05:30 05:30 WBC 28.2 H (4.8-10.8) x10^3/uL RBC 3.99 L (4.70-6.10) 10^6/uL Hgb 9.2 L (14.0-18.0) g/dL Hct 30.8 L (42.0-52.0) % MCV 77.0 L (80.0-94.0) fL MCH 23.1 L (27.0-31.0) pg MCHC 30.0 L (32.0-36.0) g/dL RDW 19.9 H (12.0-15.0) % Plt Count 381 (130-450) 10^3/uL MPV 8.4 (7.4-11.4) fL Sodium 144 (135-145) mmol/L Potassium 2.9 L 2.5 L* (3.5-5.0) mmol/L Chloride 100 L (101-111) mmol/L Carbon Dioxide 35 H (21-32) mmol/L Anion Gap 9.0 (6-13) BUN 27 H (6-20) mg/dL Creatinine 1.2 (0.6-1.2) mg/dL Estimated GFR (MDRD) 57 L (>89) Glucose 313 H (70-100) mg/dL Glycated Hemoglobin (4.6-6.2) % Estim Average Glucose (70-100) Calcium 8.9 (8.5-10.3) mg/dL 01/18/18 01/18/18 Range/Units 17:00 17:00 WBC (4.8-10.8) x10^3/uL RBC (4.70-6.10) 10^6/uL Hgb (14.0-18.0) g/dL Hct (42.0-52.0) % MCV (80.0-94.0) fL MCH (27.0-31.0) pg MCHC (32.0-36.0) g/dL RDW (12.0-15.0) % Plt Count (130-450) 10^3/uL MPV (7.4-11.4) fL Sodium (135-145) mmol/L Potassium 2.3 L* (3.5-5.0) mmol/L Chloride (101-111) mmol/L Carbon Dioxide (21-32) mmol/L Anion Gap (6-13) BUN (6-20) mg/dL Creatinine (0.6-1.2) mg/dL Estimated GFR (MDRD) (>89) Glucose (70-100) mg/dL Glycated Hemoglobin 7.5 H (4.6-6.2) % Estim Average Glucose 169 H (70-100) Calcium (8.5-10.3) mg/dL Impression and Recommendations - Palliative Care Impression: This is an 87-year-old gentleman who presents with failure to thrive, now with a n acute infection of parotiditis, patient is not responsive, has been declining fairly acutely over the last several weeks to months. Current goals are to focus on treating the acute infection for comfort, correcting potassium and to avoid further arrhythmias, and make arrangements for AICD to be deactivated. Palliative care providing support for coordination of care and transitioning to hospice. Recommendations/Counseling Done: 1. Acute pain secondary to parotiditis. Goal is to treat underlying infection to see if can improve comfort status, given patient's fragile status, may or may not respond. Patient currently unable to take oral medications, receiving IV morphine intermittently for comfort with good response. Would recommend as patient's infection improves, consider IV acetaminophen to see if patient can improve alertness so will be able to interact with family. Would recommend if patient is to discharge, transition to comfort oral meds tomorrow, which would include morphine 20 mg per/ml, 5-10 mg every 2 hours as needed. Discontinue all oral medications. 2. Advance care planning. Eric his son, reports already has a referral to hospice of [facility], requests I follow up. I did call, they most likely do not have an opening until Wednesday, will get back to me if they can accommodate sooner. Information received on the AICD, pass along to hospitalist to be able to make arrangements to deactivate. [facility] hospice does have an opening if patient discharged tomorrow or Wednesday, patient already has a hospital bed most likely will not need any further equipment but will need BLS transfer. Son is quite concerned about patient getting home comfortably. SAMMIE ANGLIN completed and signed and left at bedside, son coming in later. Son reports on discharge who ever is available is acceptable.Provided anticipatory guidance, patient may not be able to transition home, send finds this acceptable particularly if patient is nonresponsive. Will need comfort med prescriptions prior to discharge. Time Spent: 60 minutes with greater than 50% of the standing counseling coordination of care follow-up with hospitalist, anticipatory guidance then with son, coordination with hospice as well as vp digital marketing social media and crm.
[2018-01-19] MEDS: INSULIN GLARGINE 300 UNIT/3 ML PEN SUBQ SCH (21:26)
[2018-01-20] MEDS: INSULIN REGULAR HUMAN 100 UNIT/1 ML 10 ML MDV SUBQ SCH ×2 (00:49→06:15)
[2018-01-20] MEDS: SODIUM CHLORIDE FLUSH 0.9% 10 ML SYRINGE IVP SCH ×2 (00:50→08:44)
[2018-01-20] MEDS: AMPICILLIN/SULBACTAM 3 GM in SODIUM CHLORIDE 0.9% MINIBAG 100 ML IV SCH ×2 (02:19→08:41)
[2018-01-20 05:48] LABS: HGB - HEMOGLOBIN 9.4 g/dL (14.0-18.0); MEAN CORPUSCULAR HEMOGLOBIN 23.7 pg (27.0-31.0); MEAN CORPUSCULAR HGB CONC 30.4 g/dL (32.0-36.0); MEAN PLATELET VOLUME 8.8 fL (7.4-11.4); RED BLOOD COUNT 3.97 10^6/uL (4.70-6.10); RED CELL DISTRIBUTION WIDTH 20.3 % (12.0-15.0); WHITE BLOOD COUNT 23.6 x10^3/uL (4.8-10.8)
[2018-01-20 06:00] LABS: CALCIUM 8.8 mg/dL (8.5-10.3); CREATININE 1.2 mg/dL (0.6-1.2)
[2018-01-20] MEDS: NS W/20 MEQ KCL 1,000 ML IV SCH (06:14)
[2018-01-20] MEDS ORDERED: POTASSIUM CHLORIDE INJ 40 MEQ in SODIUM CHLORIDE 0.9% 480 ML IV ONE (08:14)
[2018-01-20] MEDS: ASPIRIN EC 81 MG TABLET PO SCH (08:43)
[2018-01-20] MEDS: LEVOTHYROXINE 75 MCG TABLET PO SCH (08:43)
[2018-01-20] MEDS: CLOPIDOGREL 75 MG TABLET PO SCH (08:43)
[2018-01-20] MEDS: FLUDROCORTISONE 0.1 MG TABLET PO SCH (08:43)
[2018-01-20] MEDS: MULTIVITAMIN W/MINERALS TABLET PO SCH (08:43)
[2018-01-20] MEDS: BISACODYL 5 MG TABLET PO SCH (08:43)
[2018-01-20] MEDS: FAMOTIDINE 20 MG TABLET PO SCH (08:43)
[2018-01-20] MEDS: TORSEMIDE 20 MG TABLET PO SCH (08:44)
[2018-01-20] MEDS: SACCHAROMYCES BOULARDII 250 MG CAPSULE PO SCH (08:44)
[2018-01-20] MEDS: METOPROLOL SUCCINATE 50 MG TABLET PO SCH (08:44)
[2018-01-20] MEDS: TAMSULOSIN 0.4 MG CAPSULE PO SCH (08:44)
[2018-01-20] MEDS: POLYETHYLENE GLYCOL 3350 17 GM PACKET PO SCH (08:44)
[2018-01-20] MEDS: PSYLLIUM PACKET PO SCH (08:44)
[2018-01-20] MEDS: SENNA 8.6 MG TABLET PO SCH (08:44)
[2018-01-20] MEDS ORDERED: BISACODYL 10 MG SUPP PR ONE (08:45)
[2018-01-20] MEDS ORDERED: NS W/40 MEQ KCL 1,000 ML IV SCH (09:00)
[2018-01-20] MEDS ORDERED: POTASSIUM CHLORIDE INJ 40 MEQ in DEXTROSE 5%-0.45% NACL 980 ML IV SCH (09:00)
[2018-01-20] MEDS: HEPARIN 5,000 UNIT/ML VIAL SUBQ SCH (10:16)
[2018-01-20] MEDS: MORPHINE 2 MG/ML CARPUJECT IVP PRN ×2 (10:25→12:24)
--- NOTE | 2018-01-20 11:31 | Discharge Plan ---
Discharge Plan Disposition: 50 Hospice/Home DC/Xfer Condition: Critical Prescriptions: LORazepam [Ativan] 0.5 mg PO Q4H PRN #20 tablet PRN Reason: Anxiety Morphine Sulfate [Morphine Sulf Oral (Roxanol)] 5 mg PO Q2H PRN #30 ml PRN Reason: Pain/Dyspnea Additional Instructions or Follow Up instructions: you may followup hospice team care as your arrival to home. No Smoking: If you smoke, Please STOP! Call for help. Follow-up with: Reinaldo Paulino MD [Primary Care Provider] -
--- NOTE | 2018-01-20 11:44 | DISCHARGE SUMMARY ---
Discharge Summary Discharge Date: 01/20/18 Discharging Provider: LYNNE Primary Care Provider: Reinaldo Carrera Condition at Discharge: Critical Discharge Disposition: 50 Hospice/Home DC/Xfer Discharge Facility Name: home - DIAGNOSES Admission Diagnoses: (1) Parotitis (2) Facial cellulitis (3) Hypokalemia (4) Inappropriate shocks from ICD (implantable cardioverter-defibrillator) (5) BPH (benign prostatic hyperplasia) (6) CHF (congestive heart failure) (7) Cervical radiculopathy (8) Diabetes mellitus type 2 in nonobese (9) Lumbar back pain Discharge Diagnoses with Status of Each Condition: 1) Parotitis reduced swelling (2) Facial cellulitis significant reduced swelling and redness (3) Hypokalemia improved, but still at 2.6 although continue replaced with IVF of potassium. unknown etiology for hypokalemia although replaced. pt is d/c on hospice care (4) Inappropriate shocks from ICD (implantable cardioverter-defibrillator) ICD was turned off by pt's family request (5) BPH (benign prostatic hyperplasia) stable (6) CHF (congestive heart failure) d/c on hospice care (7) Cervical radiculopathy d/c on hospice care (8) Diabetes mellitus type 2 in nonobese d/c on hospice care (9) Lumbar back pain it seems be controlled. d/c on hospice care (10) unresponsive pt has been unresponsive since pt was admitted in hospital. pt's family request hospice care (11) hospice care pt's family request hospice care for pt. pt was referral to hospice care. pt was accepted by [facility] hospice team and transferred to home for hospice care. - HPI History of Present Illness: refer from 's HPI on 01/17/18 as the following: Pt is non-verbal and no family available at bedside. Hx is from ED MD and nurses, and records. Pt is an 87 y.o. male with PMH of dementia, CHF, hypothyroid, Type 2 DM, s/p AICD placement, brought in by son from [facility] after having pain and swelling in the R side of the face for the past 3 days, progressively getting worse. Pain has failed to be controlled with Alpha, so pt was brought to ED for evaluation. Dr Frederick ordered a facial CT showing a parotiditis with no abcess, but there were stones. He did explore but did not confirm removal of any stones. He was not febrile or in evidence of sepsis. There did not appear to be anything requiring surgical intervention, and due to the pt's ongoing dementia and poor baseline mental status, family did not want any agressive measures and requested medical management with abx and pain meds, with hospice referral after admis ayden. He was also found to be hypokalemic at K 2.4 and had a single episode of firing of the ICD. Likely due to low K+. Family wants ICD turned off, and [facility] will apparently be able to do this in am. - HOSPITAL COURSE Hospital Course: pt was admitted for facial cellulitis with unresponsive, and hypokalemia. Pt was treated with antibiotics, and potassium was replaced. pt's family request hospice care and also request turn off pt's ICD. we did ask ICD company turn off the ICD. pt continue unresponsive. pt was accepted by Home hospice care team. pt was d/c to home and cared by hospice team immediately. I called pt's son Eric Carranza, asked him any questions to me. Eric Carranza state he did not have any question to me, he state the nurse answered all his questions. - ALLERGIES Allergies/Adverse Reactions: Allergies Allergy/AdvReac Type Severity Reaction Status Date / Time pregabalin [From Lyrica] Allergy Unknown Verified 01/18/18 15:59 Sulfa (Sulfonamide Allergy Unknown Verified 01/18/18 15:59 Antibiotics) tetracycline Allergy Unknown Verified 01/18/18 15:59 - MEDICATIONS Home Medications: Ambulatory Orders Medication Instructions Recorded Confirmed Acetaminophen [Pain Reliever] 500 mg PO Q6H PRN 05/31/17 01/20/18 Clopidogrel [Plavix] 75 mg PO DAILY 05/31/17 01/19/18 Fludrocortisone [Florinef] 0.2 mg PO DAILY 05/31/17 01/20/18 Levothyroxine Sodium [Synthroid] 75 mcg PO DAILY 05/31/17 01/19/18 Aspirin [Aspirin EC] 81 mg PO DAILY 10/15/17 01/19/18 Cyclobenzaprine [Flexeril] 5 mg PO TID PRN tablet 10/20/17 01/19/18 HYDROcod/ACETAM 5/325 [Alpha 5/325] 1 tab PO Q4HR PRN #42 tablet 10/20/17 Tamsulosin [Flomax] 0.4 mg PO DAILY #30 10/20/17 01/19/18 Methenamine Hippurate 1 gm PO BID 01/19/18 01/19/18 Potassium Chloride 20 meq PO DAILY 01/19/18 01/19/18 Bisacodyl [Dulcolax] 5 - 15 mg PO DAILY PRN 01/20/18 01/20/18 Docusate Sodium 100 mg PO BID 01/20/18 01/20/18 Famotidine [Pepcid] 20 mg PO DAILY 01/20/18 01/20/18 Ferrous Sulfate 325 mg PO DAILY 01/20/18 01/20/18 Insulin Aspart [NovoLOG] 5 - 15 unit SUBQ ACHS 01/20/18 01/20/18 Insulin NPH Human Isophane 40 unit SUBQ BIDWM 01/20/18 01/20/18 [Humulin N] LORazepam [Ativan] 0.5 mg PO Q4H PRN #20 tablet 01/20/18 Metoprolol Succinate [Toprol Xl] 25 mg PO DAILY 01/20/18 01/20/18 Morphine Sulfate [Morphine Sulf 5 mg PO Q2H PRN #30 ml 01/20/18 Oral (Roxanol)] Polyethylene Glycol 3350 [Miralax] 17 gm PO DAILY 01/20/18 01/20/18 Psyllium Husk [Lashanda-Mucil] 1 pkt PO DAILY 01/20/18 01/20/18 Senna [Senokot] 8.6 mg PO DAILY 01/20/18 01/20/18 Torsemide [Demadex] 10 mg PO DAILY 01/20/18 01/20/18 - PHYSICAL EXAM AT DISCHARGE General Appearance: positive: Lethargic Eyes Bilateral: positive: No lid inflammation ENT: positive: ENT inspection nml, No signs of dehydration. negative: Oral lesions, Dry mucous membranes Neck: positive: Nml inspection, No JVD, Trachea midline. negative: Thyromegaly, Lymphadenopathy (R), Lymphadenopathy (L) Respiratory: positive: Chest non-tender, No respiratory distress. negative: Wheezes, Rales Cardiovascular: positive: No murmur, Irregularly irregular. negative: Tachycardia, Bradycardia, Systolic murmur, Diastolic murmur Peripheral Pulses: positive: 2+ Abdomen: positive: Non-tender, No distention. negative: Guarding, Rebound Back: positive: Nml inspection Skin: positive: Color nml, Warm, Dry Extremities: positive: Non-tender, Nml appearance - LABS Result Diagrams: 01/20/18 05:35 01/20/18 05:35 - SEPSIS Current Stage of Sepsis: Ruled out - FOLLOW UP Follow Up: you may followup hospice team care as your arrival to home. - TIME SPENT Time Spent in Discharge (Minutes): 50
[2018-01-20] MEDS ORDERED: SODIUM CHLORIDE FLUSH 0.9% 10 ML SYRINGE ONE (11:55)
[2018-01-20 12:36] VITALS: BP 120/63
--- NOTE | 2018-01-20 17:38 | CONSULTATION NOTE ---
Palliative Care Follow Up - Referral Referring Provider: Amilcar MARCANO Time of Visit: ; Referral setting: Hospitalized patient Referral Reason: Failure to Thrive/Goals of care - Information Sources Records reviewed: Previous records reviewed Exam limitations: Clinical condition (patient non responsive) - History of Present Illness Update Brief HPI Update: Please see HPI 01/19. Patient is continued to be minimally responsive, though has answered some yes/no questions for nursing regarding if needed pain medication. On exam only flutters eye's with painful stimuli. Patient is unable to take any oral intake, did have some significant respiratory distress last night related to secretions and most likely ongoing fluid overload. Patient has had some response to antibiotics with decreased redness, and less pain behavior s. Patient does have black eschar on right heel, dried with no signs or symptoms of cellulitis. Patient does have some crackles in his left lower lobe, some expiratory rhonchi that improved with repositioning. Arrangements have been made with hospice in the [facility] for patient's transition to home with hospice today. Social History - Living Situation Living arrangement: At home Living Situation: With family (Son has been caring for patient at home, he has cared for his mother on hospice in the past. His sister from [place] is coming to provide support and say her goodbyes as well this evening. They have been working on rearranging the home, awaiting equipment.) Medications/Allergies - Medications Active Medication List: Acetaminophen [Pain Reliever] 500 mg PO Q6H PRN 05/31/17 Clopidogrel [Plavix] 75 mg PO DAILY 05/31/17 Fludrocortisone [Florinef] 0.2 mg PO DAILY 05/31/17 Levothyroxine Sodium [Synthroid] 75 mcg PO DAILY 05/31/17 Aspirin [Aspirin EC] 81 mg PO DAILY 10/15/17 Methenamine Hippurate 1 gm PO BID 01/19/18 Potassium Chloride 20 meq PO DAILY 01/19/18 Bisacodyl [Dulcolax] 5 - 15 mg PO DAILY PRN 01/20/18 Docusate Sodium 100 mg PO BID 01/20/18 Famotidine [Pepcid] 20 mg PO DAILY 01/20/18 Ferrous Sulfate 325 mg PO DAILY 01/20/18 Insulin Aspart [NovoLOG] 5 - 15 unit SUBQ ACHS 01/20/18 Insulin NPH Human Isophane [Humulin N] 40 unit SUBQ BIDWM 01/20/18 Metoprolol Succinate [Toprol Xl] 25 mg PO DAILY 01/20/18 Polyethylene Glycol 3350 [Miralax] 17 gm PO DAILY 01/20/18 Psyllium Husk [Lashanda-Mucil] 1 pkt PO DAILY 01/20/18 Senna [Senokot] 8.6 mg PO DAILY 01/20/18 Torsemide [Demadex] 10 mg PO DAILY 01/20/18 - Allergies Allergies/Adverse Reactions: Allergies Allergy/AdvReac Type Severity Reaction Status Date / Time pregabalin [From Lyrica] Allergy Unknown Verified 01/18/18 15:59 Sulfa (Sulfonamide Allergy Unknown Verified 01/18/18 15:59 Antibiotics) tetracycline Allergy Unknown Verified 01/18/18 15:59 Physical Exam - Vital Signs Vital Signs: Vital Signs x48h Temp Pulse Resp BP Pulse Ox 01/20/18 12:35 36.8 C 99 20 120/63 97 - Physical Exam General Appearance: positive: Mild distress (with movement or stimulation) Eyes Bilateral: positive: Other (eyes closed) ENT: positive: Dry mucous membranes Neck: positive: Trachea midline Cardiovascular: positive: Irregular, Other (AICD has been deactivated) Respiratory: positive: Diminished in bases, Rhonchi Abdomen: positive: Soft Skin: positive: Pallor, Wound (large eschar/diabetic ulcer right heel) Extremities: positive: Pedal edema (trace up to mid calf) Neurologic/Psychiatric: positive: Other (nonresponsive) Palliative Care - POLST Patient has POLST: Yes POLST Status: DNR, Selective Treatment Pain: Pain improved (using IV MS 3 mg with good results; follow up with RN to admister prior to discharge) Dyspnea: Comment (pateint with upper airway secretions; managed with HOB up and respositioning) Performance Status: Patient has been bedbound, needing maximum assist with turning, and repositioning. Has been mostly nonresponsive, would put him at a PPS of 10% - Palliative Care Discussion: Follow-up with son regarding concerns of patient not being sent home on IV antibiotics and hydration, patient's family has not been in at the bedside. We did have a discussion over the phone regarding goals of care, where to focus on comfort.Anticipatory guidance given regarding multiorgan failure, antibiotics with minimal response, patient continued to have third spacing, heart failure, kidney failure, and nonresponsive. Discussed comfort at end of life, allowing natural , includes concern for IV fluids causing third spacing, increased symptom distress. Son able to acknowledge patient has had ongoing difficulties with fluid retention, shortness of breath, and edema. Discussed patient would be more comfortable with allowing fluid to reabsorb, less respiratory distress, and focusing on comfort medications. Son did acknowledge understanding, will continue to work with hospice nurse and transition and home. Results - Lab Results Lab results reviewed: Yes Fish Bones: 01/20/18 05:35 01/20/18 05:35 Lab and Imaging Results: Lab Results x24hrs 01/20/18 01/20/18 Range/Units 05:35 05:35 WBC 23.6 H (4.8-10.8) x10^3/uL RBC 3.97 L (4.70-6.10) 10^6/uL Hgb 9.4 L (14.0-18.0) g/dL Hct 30.9 L (42.0-52.0) % MCV 78.0 L (80.0-94.0) fL MCH 23.7 L (27.0-31.0) pg MCHC 30.4 L (32.0-36.0) g/dL RDW 20.3 H (12.0-15.0) % Plt Count 323 (130-450) 10^3/uL MPV 8.8 (7.4-11.4) fL Sodium 148 H (135-145) mmol/L Potassium 2.6 L (3.5-5.0) mmol/L Chloride 107 (101-111) mmol/L Carbon Dioxide 34 H (21-32) mmol/L Anion Gap 7.0 (6-13) BUN 25 H (6-20) mg/dL Creatinine 1.2 (0.6-1.2) mg/dL Estimated GFR (MDRD) 57 L (>89) Glucose 196 H (70-100) mg/dL Calcium 8.8 (8.5-10.3) mg/dL Impression and Recommendations - Palliative Care Impression: This is an 87-year-old gentleman with multiorgan failure including heart, kidney, and ongoing functional and cognitive decline. Presenting with acute episode of parotiditis and dehydration, hypokalemia and metabolic abnormalities. Goals are to focus on comfort, AICD has been deactivated, is not responding to current IV fluids and antibiotics. Goal is to have patient transition home with hospice this afternoon. Recommendations/Counseling Done: 1.Advanced care planning. [facility] has accepted patient, has been in contact with patient's son directly arranging transport and equipment. Follow-up with hospitalist regarding discharge medications including Lorazepam liquid 2 mg per male 0.25 mils equals 5 mg every 4 hours as needed agitation or anxiety. Roxanol/MS 20 mg/ml 0.25 ml=5mg every 2 hours as needed for respiratory effort or pain. Patient to be premedicated prior to transport. Anticipatory guidance provided to the son in follow up with communication to [facility]. Time Spent: 45 minutes with greater than 50% of this done and coordination of care, anticipatory guidance, and handed off to hospice.
== END 2018-01-20 13:15 | disposition home or self-care (01) | DRG 155 ==
LOC: EDUNIT# → ED 15:42 → MS2 19:39
PROVIDERS: ADMIT Family Medicine Sports Medicine; ATTEND Nurse Practitioner Gerontology
DX: K11.20 Sialoadenitis, unspecified (principal); K11.21 Acute sialoadenitis; L03.211 Cellulitis of face; T50.3X6A Underdosing of electrolytic, caloric and water-balance agents, initial encounter; Z91.128 Patient's intentional underdosing of medication regimen for other reason; Y92.009 Unspecified place in unspecified non-institutional (private) residence as the place of occurrence of the external cause; L97.429 Non-pressure chronic ulcer of left heel and midfoot with unspecified severity; I11.0 Hypertensive heart disease with heart failure; I13.0 Hypertensive heart and chronic kidney disease with heart failure and stage 1 through stage 4 chronic kidney disease, or unspecified chronic kidney disease; L97.411 Non-pressure chronic ulcer of right heel and midfoot limited to breakdown of skin; T82.198A Other mechanical complication of other cardiac electronic device, initial encounter; E87.6 Hypokalemia; E86.0 Dehydration; K11.5 Sialolithiasis; I50.9 Heart failure, unspecified; E11.22 Type 2 diabetes mellitus with diabetic chronic kidney disease; N18.3 Chronic kidney disease, stage 3 (moderate); E11.621 Type 2 diabetes mellitus with foot ulcer; E11.51 Type 2 diabetes mellitus with diabetic peripheral angiopathy without gangrene; F03.90 Unspecified dementia, unspecified severity, without behavioral disturbance, psychotic disturbance, mood disturbance, and anxiety; E03.9 Hypothyroidism, unspecified; I25.10 Atherosclerotic heart disease of native coronary artery without angina pectoris; J43.9 Emphysema, unspecified; N40.1 Benign prostatic hyperplasia with lower urinary tract symptoms; R33.8 Other retention of urine; R39.11 Hesitancy of micturition; M54.5 Low back pain; M54.12 Radiculopathy, cervical region; K21.9 Gastro-esophageal reflux disease without esophagitis; R62.7 Adult failure to thrive; I25.2 Old myocardial infarction; Y84.8 Other medical procedures as the cause of abnormal reaction of the patient, or of later complication, without mention of misadventure at the time of the procedure; Z86.718 Personal history of other venous thrombosis and embolism; Z51.5 Encounter for palliative care; Z66 Do not resuscitate; Z96.0 Presence of urogenital implants; Z86.73 Personal history of transient ischemic attack (TIA), and cerebral infarction without residual deficits; Z95.5 Presence of coronary angioplasty implant and graft; Z95.2 Presence of prosthetic heart valve; Z85.828 Personal history of other malignant neoplasm of skin; Z79.02 Long term (current) use of antithrombotics/antiplatelets; Z79.899 Other long term (current) drug therapy; Z79.82 Long term (current) use of aspirin; Z79.4 Long term (current) use of insulin; Z79.891 Long term (current) use of opiate analgesic; Z74.01 Bed confinement status; Z87.440 Personal history of urinary (tract) infections; Z95.810 Presence of automatic (implantable) cardiac defibrillator
CPT/HCPCS: 36415; 70487; 80048; 83036; 84132; 85025; 85027; 96361; 96365; 96375; 99222; 99284; 99285

== ENCOUNTER 2018-01-20 13:19 | Outpatient (CLI) | payer MEDICARE, OTHER | END 2018-01-20 23:59 | LOC: LAB.R 13:19 | PROVIDERS: ATTEND Family Medicine | DX: N39.0 Urinary tract infection, site not specified (principal) | CPT/HCPCS: 87086; 87181 ==

== ENCOUNTER 2018-01-20 14:57 | Outpatient (CLI) | payer MEDICARE, OTHER | END 2018-01-20 14:58 | disposition critical access hospital (66) | LOC: EMS 14:57 | PROVIDERS: ATTEND Surgery | DX: R22.1 Localized swelling, mass and lump, neck (principal); M54.2 Cervicalgia | CPT/HCPCS: A0425; A0429 ==